=== PATIENT | male | born 1960 | race Hispanic/Latino ===

== ENCOUNTER 2020-02-25 17:40 | Emergency (ER) | payer BC, SELFPAY ==
--- OUTSIDE RECORDS SUMMARY | 2020-02-25 17:42 | XMS REPORT | Continuity of Care Document ---
:1960 Author Organization [facility] t Address [address] [place] [address] Dr. Westbrook [address] [place] [id number] Care Team Providers Name Role Phone Unavailable Unavailable Unavailable Problems This patient has no known problems. Allergies, Adverse Reactions, Alerts This patient has no known allergies or adverse reactions. Medications This patient has no known medications. Procedures This patient has no known procedures. Results This patient has no known results.
--- NOTE | 2020-02-25 18:13 | EDPHYS ---
Physician Documentation [facility] Name: Westley Ma Age: 60 yrs Sex: Male : 1960 Arrival Date: 02/25/2020 Time: 17:42 Bed 5 Private MD: ED Physician Juan A Jara HPI: 02/24 18:06 This 60 yrs old Male presents to ER via Ambulatory with complaints of Neck rn Swelling. 18:06 The patient or guardian complains of swelling. The symptoms are located on the left rn anterior neck. Onset: The symptoms/episode began/occurred yesterday. Context:. The pain does not radiate. Modifying factors: The symptoms are alleviated by nothing. the symptoms are aggravated by nothing. Severity of symptoms: At their worst the symptoms were mild, in the emergency department the symptoms are unchanged. The patient has not experienced similar symptoms in the past. The patient has been recently seen by a physician:. Reports seen yesterday by dentist for tooth problem and left facial swelling, given clindamycin, reports swelling extending to neck now. No difficulty swallowing, minimal discomfort, no fever. . Historical: - Allergies: 17:51 Codeine; sv - PMHx: 17:51 Diabetes - NIDDM; High Cholesterol; Hypertension; sv - PSHx: 17:51 left ankle; sv - Immunization history:: Flu vaccine is up to date. - Social history:: Smoking status: Patient denies any tobacco usage or history of. - Family history:: not pertinent. - Hospitalizations: : No recent hospitalization is reported. ROS: 18:06 Constitutional: Negative for fever, chills, and weight loss, Eyes: Negative for injury, rn pain, redness, and discharge, ENT: Negative for injury, pain, and discharge, Neck: + jaw and neck swelling Cardiovascular: Negative for chest pain, palpitations, and edema, Respiratory: Negative for shortness of breath, cough, wheezing, and pleuritic chest pain, Abdomen/GI: Negative for abdominal pain, nausea, vomiting, diarrhea, and constipation, MS/Extremity: Negative for injury and deformity, Skin: Negative for injury, rash, and discoloration, Neuro: Negative for headache, weakness, numbness, tingling, and seizure. Exam: 18:06 Constitutional: This is a well developed, well nourished patient who is awake, alert, rn and in no acute distress. ENT: No stridor Neck: Trachea midline, + mild superficial induration along left jawline and submandibular area, no fluctuance, + thickening is mobile, no open wounds or drainage. No crepitus. + bilateral cervical LAD. Vital Signs: 17:49 BP 168 / 82; Pulse 98; Resp 16; Temp 97.7; Pulse Ox 98% ; Weight 115.21 kg; Height 6 sv ft. 0 in. (182.88 cm); 18:38 BP 153 / 74; Pulse 88; Resp 17; Pulse Ox 100% on R/A; tw2 17:49 Body Mass Index 34.45 (115.21 kg, 182.88 cm) sv MDM: 17:54 Patient medically screened. rn 18:06 Differential diagnosis: dental abscess, facial cellulitis, submandibular cellulitis. rn Data reviewed: vital signs, nurses notes, and as a result, I will discharge patient. Counseling: I had a detailed discussion with the patient and/or guardian regarding: the historical points, exam findings, and any diagnostic results supporting the discharge/admit diagnosis, the need for outpatient follow up, to return to the emergency department if symptoms worsen or persist or if there are any questions or concerns that arise at home. Special discussion: I discussed with the patient/guardian in detail that at this point there is no indication for admission to the hospital. It is understood, however, that if the symptoms persist or worsen the patient needs to return immediately for re-evaluation. Based on the history and exam findings, there is no indication for further emergent testing or inpatient evaluation. I discussed with the patient/guardian the need to see a dentist for further evaluation of the symptoms. ED course: No evidence of submandibular or facial abscess at this point, stable, has only been on clindamycin 1 day, given IM steroids here for swelling, will add PO bactrim, and given return precautions. Has f/u with dentist on Thursday, explained exactly what to look for and when to seek emergent medical care. . Administered Medications: 18:21 Drug: Decadron 10 mg Route: IM; Site: right deltoid; tw2 18:42 Follow up: Response: No adverse reaction tw2 18:21 Drug: Bactrim (160 mg-800 mg (DS) 1 tablet Route: PO; tw2 18:42 Follow up: Response: No adverse reaction tw2 Disposition: 02/25/20 18:12 Discharged to Home. Impression: Cellulitis of face, Cellulitis of neck. - Condition is Stable. - Discharge Instructions: Cellulitis, Adult, Dental Abscess. - Prescriptions for Bactrim DS 800- 160 mg Oral Tablet - take 1 tablet by ORAL route every 12 hours for 10 days; 20 tablet. - Medication Reconciliation Form, Thank You Letter, Antibiotic Education, Prescription Opioid Use form. - Follow up: Private Physician; When: As needed; Reason: Recheck today's complaints, Re-evaluation by your physician. - Problem is new. - Symptoms are unchanged. Signatures: Maryanne Loza RN RN sv Nieto, Roman, MD MD rn Wise, Tara, RN RN tw2 Corrections: (The following items were deleted from the chart) 18:09 18:06 Constitutional: This is a well developed, well nourished patient who is awake, rn alert, and in no acute distress. Neck: Trachea midline, + mild superficial induration along left jawline and submandibular area, no fluctuance, + thickening is mobile, no open wounds or drainage. No crepitus. + bilateral cervical LAD. rn 18:43 18:12 02/25/2020 18:12 Discharged to Home. Impression: Cellulitis of face; Cellulitis tw2 of neck. Condition is Stable. Forms are Medication Reconciliation Form, Thank You Letter, Antibiotic Education, Prescription Opioid Use. Follow up: Private Physician; When: As needed; Reason: Recheck today's complaints, Re-evaluation by your physician. Problem is new. Symptoms are unchanged. rn
--- NOTE | 2020-02-25 18:13 | ER ---
Nurse's Notes [facility] Name: Westley Ma Age: 60 yrs Sex: Male : 1960 Arrival Date: 02/25/2020 Time: 17:42 Bed 5 Private MD: Diagnosis: Cellulitis of face;Cellulitis of neck Presentation: 02/24 17:49 Chief complaint: Patient states: went to the dentist yesterday and has a bad molar on sv the left side, dentist prescribed abx and pain meds. Pt reports swelling started on the left side and now has gone under his neck. Denies dyspnea or SOB. Coronavirus screen: Client denies travel out of the [place] in the last 14 days. At this time, the client does not indicate any symptoms associated with coronavirus-19. Ebola Screen: No symptoms or risks identified at this time. Initial Sepsis Screen: Does the patient meet any 2 criteria? HR > 90 bpm. No. Patient's initial sepsis screen is negative. Does the patient have a suspected source of infection? No. Patient's initial sepsis screen is negative. Risk Assessment: Do you want to hurt yourself or someone else? Patient reports no desire to harm self or others. Onset of symptoms was February 24, 2020. 17:49 Method Of Arrival: Ambulatory sv 17:49 Acuity: [id number] 3 sv Historical: - Allergies: 17:51 Codeine; sv - PMHx: 17:51 Diabetes - NIDDM; High Cholesterol; Hypertension; sv - PSHx: 17:51 left ankle; sv - Immunization history:: Flu vaccine is up to date. - Social history:: Smoking status: Patient denies any tobacco usage or history of. - Family history:: not pertinent. - Hospitalizations: : No recent hospitalization is reported. Screenin:04 Abuse screen: Denies threats or abuse. Nutritional screening: No deficits noted. tw2 Tuberculosis screening: No symptoms or risk factors identified. Fall Risk None identified. Assessment: 18:30 General: Appears in no apparent distress. comfortable, Behavior is calm, cooperative, ph appropriate for age. Pain: Complains of pain in left jaw. Neuro: Level of Consciousness is awake, alert, obeys commands, Oriented to person, place, time, situation. Cardiovascular: Capillary refill < 3 seconds in bilateral fingers Patient's skin is warm and dry. Respiratory: Airway is patent Respiratory effort is even, unlabored. GI: No signs and/or symptoms were reported involving the gastrointestinal system. Derm: Skin is intact, is healthy with good turgor, Skin is pink, warm \T\ dry. 18:38 Reassessment: Patient appears in no apparent distress at this time. No changes from tw2 previously documented assessment. Patient and/or family updated on plan of care and expected duration. Pain level reassessed. Patient is alert, oriented x 3, equal unlabored respirations, skin warm/dry/pink. Vital Signs: 17:49 BP 168 / 82; Pulse 98; Resp 16; Temp 97.7; Pulse Ox 98% ; Weight 115.21 kg; Height 6 sv ft. 0 in. (182.88 cm); 18:38 BP 153 / 74; Pulse 88; Resp 17; Pulse Ox 100% on R/A; tw2 17:49 Body Mass Index 34.45 (115.21 kg, 182.88 cm) sv ED Course: 17:42 Patient arrived in ED. rg4 17:43 Bed in low position. Call light in reach. Pulse ox on. NIBP on. tw2 17:48 Janelle Marcum RN is Primary Nurse. ph 17:50 Triage completed. sv 17:51 Arm band placed on. sv 17:54 Juan A Jara MD is Attending Physician. rn 18:31 No provider procedures requiring assistance completed. Patient did not have IV access ph during this emergency room visit. Administered Medications: 18:21 Drug: Decadron 10 mg Route: IM; Site: right deltoid; tw2 18:42 Follow up: Response: No adverse reaction tw2 18:21 Drug: Bactrim (160 mg-800 mg (DS) 1 tablet Route: PO; tw2 18:42 Follow up: Response: No adverse reaction tw2 Outcome: 18:12 Discharge ordered by . rn 18:42 Discharged to home ambulatory, with significant other. tw2 18:42 Condition: stable 18:42 Discharge instructions given to patient, significant other, Instructed on discharge instructions, follow up and referral plans. medication usage, Demonstrated understanding of instructions, follow-up care, medications, Prescriptions given X 1. 18:43 Patient left the ED. tw2 Signatures: Maryanne Loza RN RN Juan A Jara MD MD rn Hall Janelle, RN RN ph Nagi, YOSEF Freeman RN tw2 Luma Arshad [facility]
[2020-02-25] MEDS ORDERED: SMZ./TMP. 800/160 MG TABLET ONE (18:31)
[2020-02-25] MEDS ORDERED: dexAMETHasone 10 MG/ML VIAL ONE (18:32)
[2020-02-28 01:43] VITALS: TEMP 97.7
[2020-02-28 01:44] VITALS: BP 153/74; O2SAT 100
== END 2020-02-25 18:43 | disposition home or self-care (01) ==
LOC: ER 17:40
DX: L03.221 Cellulitis of neck (principal); L03.211 Cellulitis of face; I10 Essential (primary) hypertension; Z88.5 Allergy status to narcotic agent
CPT/HCPCS: 96372; 99283; J1100

== ENCOUNTER 2020-05-12 13:57 | Inpatient (IN) | payer SELFPAY ==
--- OUTSIDE RECORDS SUMMARY | 2020-05-12 13:59 | XMS REPORT | Continuity of Care Document ---
:1960 [address] [facility] t Address [address] [place] [address] Dr. Westbrook [address] [place] [id number] Care Team Providers Name Role Phone Unavailable Unavailable Unavailable Problems This patient has no known problems. Allergies, Adverse Reactions, Alerts This patient has no known allergies or adverse reactions. Medications This patient has no known medications. Procedures This patient has no known procedures. Results This patient has no known results.
--- NOTE | 2020-05-12 15:16 | RAD REPORT ---
EXAM DESCRIPTION: RAD - Foot Left 3 View - 05/12/2020 2:53 pm CLINICAL HISTORY: PAIN, wound left first toe, diabetes COMPARISON: No comparisons FINDINGS: No fracture, dislocation or periosteal reaction. No acute or destructive bony process. Sp ecifically, no bone destruction or acute findings to the bones of the first toe. Arterial tree calcif ications present. No air or foreign body in the soft tissues. Soft tissues around the first thumb do appear be edematou s. IMPRESSION: Soft tissue swelling left first toe. No acute or destructive bone process. No air or foreign body in the soft tissues.
[2020-05-12 15:31] LABS: Absolute Lymphocytes (CBC) 1.4 K/uL (0.7-4.9); Basophils % 0.5 % (0-1.3); Hematocrit 39.2 % (39.6-49.0); Lymphocytes % 11.1 % (15.3-44.8); MPV 9.6 fL (7.6-11.3); RBC Red Blood Cell Count 4.15 M/uL (4.33-5.43)
[2020-05-12 15:34] LABS: Albumin 3.5 g/dL (3.4-5.0); Bilirubin Total 0.4 mg/dL (0.2-1.0); Potassium 4.2 mmol/L (3.5-5.1); Protein, Total 8.3 g/dL (6.4-8.2)
[2020-05-12] MEDS ORDERED: NA CHLORIDE 0.9% 1,000 ML ONE (16:25)
[2020-05-12] MEDS ORDERED: PIPER/TAZO/NS 3.375gm 3.375 GM/100 ML BAG ONE (16:25)
--- NOTE | 2020-05-12 16:42 | EDPHYS ---
Physician Documentation [facility] Name: Westley Ma Age: 60 yrs Sex: Male : 1960 Arrival Date: 05/12/2020 Time: 14:03 Bed 13 Private MD: KENNEDY Physician Miguelito Zhao HPI: 05/12 15:18 This 60 yrs old Male presents to ER via Ambulatory with complaints of Toe pain.pm1 15:18 The patient presents with an injury, pain. The complaints affect the left foot, left pm1 first toe. Context: The problem was sustained outdoors, resulted from possibly pressure from working on his knees with his great toe on the ground. The medial aspect of his left great toe split open and has not improved. Skin turned whitish yesterday and split open in another area. No discharge present from wound, the patient can fully bear weight, the patient is able to ambulate. Onset: The symptoms/episode began/occurred 2 week(s) ago. Modifying factors: The symptoms are alleviated by elevation of extremity, the symptoms are aggravated by weight bearing. Associated signs and symptoms: The patient has no apparent associated signs or symptoms, Pertinent negatives: calf tenderness, fever, numbness, swelling. Severity of symptoms: in the emergency department the symptoms are actually worse. The patient has not experienced similar symptoms in the past. The patient has not recently seen a physician, the patient's primary care provider is Dr. Chatterjee. Historical: - Allergies: 14:17 Codeine; iw - Home Meds: 14:17 Altace Oral [Active]; metformin Oral [Active]; Toujeo SoloStar 300 unit/mL (1.5 mL) iw subcutaneous inpn [Active]; - PMHx: 14:17 Diabetes - NIDDM; High Cholesterol; Hypertension; iw - PSHx: 14:17 left ankle; iw - Immunization history:: Pneumococcal vaccine is up to date, Flu vaccine is up to date. - Social history:: Smoking status: Patient denies any tobacco usage or history of. ROS: 15:18 MS/extremity: Positive for pain, of the left first toe, Negative for decreased range of pm1 motion, deformity. 15:18 Constitutional: Negative for fever, chills, and weight loss, Cardiovascular: Negative for chest pain, palpitations, and edema, Respiratory: Negative for shortness of breath, cough, wheezing, and pleuritic chest pain, Abdomen/GI: Negative for abdominal pain, nausea, vomiting, diarrhea, and constipation, Back: Negative for injury and pain. 15:18 Neuro: Negative for headache, weakness, numbness, tingling, and seizure. 15:18 Skin: Positive for ulceration, of the left first toe, Negative for drainage or discharge. Exam: 15:18 Constitutional: This is a well developed, well nourished patient who is awake, alert, pm1 and in no acute distress. Head/Face: Normocephalic, atraumatic. 15:18 Back: No spinal tenderness. No costovertebral tenderness. Full range of motion. 15:18 Cardiovascular: Exam negative for acute changes, Rate: normal, Rhythm: regular, Pulses: no pulse deficits are appreciated. 15:18 Respiratory: Exam negative for acute changes, respiratory distress, shortness of breath. 15:18 Musculoskeletal/extremity: Extremities: grossly normal except: noted in the left first toe: erythema, swelling, tenderness. 15:18 Skin: cellulitis, well demarcated, on the left first toe. 15:18 Neuro: Exam negative for acute changes, Orientation: is normal, Mentation: is normal, Motor: is normal, moves all fours. Vital Signs: 14:14 BP 175 / 85; Pulse 88; Resp 16; Temp 98.9; Pulse Ox 100% on R/A; Weight 113.4 kg; iw Height 6 ft. 0 in. (182.88 cm); 16:00 BP 170 / 82; Pulse 88; Resp 16; Pulse Ox 98% on R/A; zb 19:00 BP 162 / 77; Pulse 87; Resp 15; Pulse Ox 100% on R/A; zb 22:22 BP 158 / 78; Pulse 82; Resp 16; Pulse Ox 98% on R/A; zb 14:14 Body Mass Index 33.91 (113.40 kg, 182.88 cm) iw MDM: 14:26 Patient medically screened. pm1 16:01 Counseling: I had a detailed discussion with the patient and/or guardian regarding: the pm1 historical points, exam findings, and any diagnostic results supporting the discharge/admit diagnosis, lab results, radiology results, the need for further work-up and treatment in the hospital. 16:14 Data reviewed: vital signs. Data interpreted: Pulse oximetry: on room air is 100 %. pm1 Interpretation: normal. 16:40 Physician consultation: Jose Burk DO was called at 16:40, was contacted at 16:40, pm1 regarding admission, patient's condition, would like medications started, stop zosyn and will start cefepime, in the emergency department to see patient at 16:40. 05/12 14:26 Order name: CBC with Diff; Complete Time: 15:53 pm1 05/12 14:26 Order name: CMP; Complete Time: 15:53 pm1 05/12 14:26 Order name: Procalcitonin; Complete Time: 15:53 pm1 05/12 14:26 Order name: Lactate; Complete Time: 15:53 pm1 05/12 15:54 Order name: Blood Culture Adult (2) pm1 05/12 15:55 Order name: COVID-19 : Document "Date of Symptom Onset" if Symptomatic. pm1 05/12 14:26 Order name: Foot Left 3 View XRAY; Complete Time: 15:18 pm1 05/12 14:26 Order name: IV Saline Lock; Complete Time: 14:44 pm1 05/12 21:18 Order name: SARS-COV-2 RT PCR; Complete Time: 12:35 EDMS Administered Medications: Discontinued: Zosyn 3.375 grams IVPB once over 60 mins; (mix in NS 100 mL) 16:15 Drug: NS 0.9% 1000 ml Route: IV; Rate: 1000 ml; Site: right forearm; zb 17:15 Follow up: Response: No adverse reaction; IV Status: Completed infusion; IV Intake: zb 1000ml 16:17 Drug: Zosyn 3.375 grams Route: IVPB; Infused Over: 60 mins; Site: right antecubital; zb 17:46 Drug: vancoMYCIN 1 grams Route: IVPB; Infused Over: 2 hrs; Site: right forearm; zb 20:45 Follow up: Response: No adverse reaction; IV Status: Completed infusion; IV Intake: zb 250ml Disposition: 05/13 09:05 Co-signature as Attending Physician, Miguelito Zhao MD I agree with the assessment and michael plan of care. Disposition: 05/12/20 16:41 Hospitalization ordered by Jose Burk for Inpatient Admission. Preliminary diagnosis is Cellulitis of left toe - left great toe and left foot. - Bed requested for Telemetry/MedSurg (Inpatient). - Status is Inpatient Admission. zb - Condition is Stable. - Problem is new. - Symptoms have improved. Signatures: Dispatcher [employer] EDMiguelito Acevedo MD MD cha Williams, Irene, RN RN iw Ayde Arshad RN RN cg Connor Greene, SNOW TECHNICIAN SNOW TECHNICIAN pm1 Nicolette Figueredo RN RN zb Corrections: (The following items were deleted from the chart) 03 22:04 16:41 Hospitalization Ordered by Jose Burk DO for Inpatient Admission. Preliminary cg diagnosis is Cellulitis of left toe - left great toe and left foot. Bed requested for Telemetry/MedSurg (Inpatient). Status is Inpatient Admission. Condition is Stable. Problem is new. Symptoms have improved. pm1 23:55 22:04 05/12/2020 16:41 Hospitalization Ordered by Jose Burk DO for Inpatient zb Admission. Preliminary diagnosis is Cellulitis of left toe - left great toe and left foot. Bed requested for Telemetry/MedSurg (Inpatient). Status is Inpatient Admission. Condition is Stable. Problem is new. Symptoms have improved. cg
--- NOTE | 2020-05-12 16:42 | ER ---
Nurse's Notes [facility] Name: Westley Ma Age: 60 yrs Sex: Male : 1960 Arrival Date: 05/12/2020 Time: 14:03 Bed 13 Private MD: Diagnosis: Cellulitis of left toe-left great toe and left foot Presentation: 05/12 14:14 Chief complaint: Patient states: has had skin on left great toe and the skin split open iw two weeks ago, yesterday the skin got real white and soft , is diabetic. Coronavirus screen: At this time, the client does not indicate any symptoms associated with coronavirus-19. Ebola Screen: Patient negative for fever greater than or equal to 101.5 degrees Fahrenheit, and additional compatible Ebola Virus Disease symptoms Patient denies exposure to infectious person. Patient denies travel to an Ebola-affected area in the 21 days before illness onset. No symptoms or risks identified at this time. Initial Sepsis Screen: Does the patient meet any 2 criteria? No. Patient's initial sepsis screen is negative. Does the patient have a suspected source of infection? No. Patient's initial sepsis screen is negative. Risk Assessment: Do you want to hurt yourself or someone else? Patient reports no desire to harm self or others. Onset of symptoms was April 28, 2020. 14:14 Method Of Arrival: Ambulatory iw 14:14 Acuity: [id number] 3 iw Historical: - Allergies: 14:17 Codeine; iw - Home Meds: 14:17 Altace Oral [Active]; metformin Oral [Active]; Toujeo SoloStar 300 unit/mL (1.5 mL) iw subcutaneous inpn [Active]; - PMHx: 14:17 Diabetes - NIDDM; High Cholesterol; Hypertension; iw - PSHx: 14:17 left ankle; iw - Immunization history:: Pneumococcal vaccine is up to date, Flu vaccine is up to date. - Social history:: Smoking status: Patient denies any tobacco usage or history of. Screenin:10 Abuse screen: Denies threats or abuse. Denies injuries from another. Nutritional zb screening: No deficits noted. Tuberculosis screening: No symptoms or risk factors identified. Fall Risk None identified. Assessment: 15:00 General: Appears in no apparent distress. comfortable, Behavior is calm, cooperative, zb appropriate for age. Pain: Complains of pain in ball of left foot Pain does not radiate. Pain currently is 2 out of 10 on a pain scale. Quality of pain is described as aching, Pain began years ago. couple of weeks. Is intermittent. Neuro: Level of Consciousness is awake, alert, obeys commands, Oriented to person, place, time, situation, Denies numbness. Cardiovascular: Heart tones S1 S2 present Capillary refill < 3 seconds Patient's skin is warm and dry. Respiratory: Airway is patent Respiratory effort is even, unlabored, Respiratory pattern is regular, symmetrical. GI: Abdomen is round. : No signs and/or symptoms were reported regarding the genitourinary system. EENT: No signs and/or symptoms were reported regarding the EENT system. Derm: Wound noted plantar aspect of left first toe Wound is purplish, eschar wound, no drainage present at this time. Reports peeling, since couple weeks . . Musculoskeletal: Range of motion: intact in all extremities. 16:00 Reassessment: Patient appears in no apparent distress at this time. Patient and/or zb family updated on plan of care and expected duration. Pain level reassessed. Patient is alert, oriented x 3, equal unlabored respirations, skin warm/dry/pink. 17:00 Reassessment: Patient appears in no apparent distress at this time. Patient and/or zb family updated on plan of care and expected duration. Pain level reassessed. Patient is alert, oriented x 3, equal unlabored respirations, skin warm/dry/pink. 18:00 Reassessment: Patient appears in no apparent distress at this time. Patient and/or zb family updated on plan of care and expected duration. Pain level reassessed. Patient is alert, oriented x 3, equal unlabored respirations, skin warm/dry/pink. 19:00 Reassessment: Patient appears in no apparent distress at this time. Patient and/or zb family updated on plan of care and expected duration. Pain level reassessed. Patient is alert, oriented x 3, equal unlabored respirations, skin warm/dry/pink. 20:00 Reassessment: Patient appears in no apparent distress at this time. Patient and/or zb family updated on plan of care and expected duration. Pain level reassessed. Patient is alert, oriented x 3, equal unlabored respirations, skin warm/dry/pink. 21:00 Reassessment: Patient appears in no apparent distress at this time. Patient and/or zb family updated on plan of care and expected duration. Pain level reassessed. Patient is alert, oriented x 3, equal unlabored respirations, skin warm/dry/pink. 22:00 Reassessment: Patient appears in no apparent distress at this time. Patient and/or zb family updated on plan of care and expected duration. Pain level reassessed. Patient is alert, oriented x 3, equal unlabored respirations, skin warm/dry/pink. report called and given at this time. 23:00 Reassessment: Patient appears in no apparent distress at this time. Patient and/or zb family updated on plan of care and expected duration. Pain level reassessed. Patient is alert, oriented x 3, equal unlabored respirations, skin warm/dry/pink. Vital Signs: 14:14 BP 175 / 85; Pulse 88; Resp 16; Temp 98.9; Pulse Ox 100% on R/A; Weight 113.4 kg; iw Height 6 ft. 0 in. (182.88 cm); 16:00 BP 170 / 82; Pulse 88; Resp 16; Pulse Ox 98% on R/A; zb 19:00 BP 162 / 77; Pulse 87; Resp 15; Pulse Ox 100% on R/A; zb 22:22 BP 158 / 78; Pulse 82; Resp 16; Pulse Ox 98% on R/A; zb 14:14 Body Mass Index 33.91 (113.40 kg, 182.88 cm) iw ED Course: 14:03 Patient arrived in ED. am2 14:16 Triage completed. iw 14:17 Arm band placed on. iw 14:22 Connor Greene NP is PHCP. pm1 14:22 Miguelito Zhao MD is Attending Physician. pm1 14:45 Inserted saline lock: 20 gauge 24 gauge wrist, using aseptic technique. dh4 14:51 Foot Left 3 View XRAY In Process Unspecified. EDMS 15:00 Nicolette Figueredo RN is Primary Nurse. zb 15:11 Patient has correct armband on for positive identification. Pulse ox on. NIBP on. Door zb closed. Noise minimized. 16:41 Prezas, Jose, DO is Hospitalizing Provider. pm1 23:55 Patient admitted, IV remains in place. zb 05/13 00:05 No provider procedures requiring assistance completed. zb Administered Medications: Discontinued: Zosyn 3.375 grams IVPB once over 60 mins; (mix in NS 100 mL) 03 16:15 Drug: NS 0.9% 1000 ml Route: IV; Rate: 1000 ml; Site: right forearm; zb 17:15 Follow up: Response: No adverse reaction; IV Status: Completed infusion; IV Intake: zb 1000ml 16:17 Drug: Zosyn 3.375 grams Route: IVPB; Infused Over: 60 mins; Site: right antecubital; zb 17:46 Drug: vancoMYCIN 1 grams Route: IVPB; Infused Over: 2 hrs; Site: right forearm; zb 20:45 Follow up: Response: No adverse reaction; IV Status: Completed infusion; IV Intake: zb 250ml Intake: 17:15 IV: 1000ml; Total: 1000ml. zb 20:45 IV: 250ml; Total: 1250ml. zb Outcome: 16:41 Decision to Hospitalize by Provider. pm1 23:00 Admitted to Med/surg accompanied by tech, via wheelchair, room 210, with chart, Report zb called to 2nd floor nurse. 23:00 Condition: stable 23:00 Instructed on the need for admit. 23:55 Patient left the ED. zb Signatures: Dispatcher [employer] EDMS Mayi Colvin RN RN iw Marinas, Patrick, NP BUSINESS SYSTEMS DEVELOPER pm1 Jeana Euceda 2 Marc Gooden 4 Nicolette Figueredo RN RN zb Corrections: (The following items were deleted from the chart) 15:11 15:00 Neuro: Level of Consciousness is awake, alert, obeys commands, Oriented to zb person, place, time, situation, zb 15:11 15:00 Derm: Wound noted plantar aspect of left first toe Wound is purplish, eschar zb wound, no drainage present at this time. zb 05/13 00:07 0306 22:00 Reassessment: Patient appears in no apparent distress at this time. Patient zb and/or family updated on plan of care and expected duration. Pain level reassessed. Patient is alert, oriented x 3, equal unlabored respirations, skin warm/dry/pink. zb
--- NOTE | 2020-05-12 17:16 | P.HP ---
Certification for Inpatient Patient admitted to: Inpatient With expected LOS: >2 Midnights Patient will require the following post-hospital care: None Practitioner: I am a practitioner with admitting privileges, knowledge of patient current condition, hospital course, and medical plan of care. Services: Services provided to patient in accordance with Admission requirements found in Title 42 Section 412.3 of the Code of Federal Regulations Patient History Date of Service: 05/12/20 Primary Care Provider: Dr. Chatterjee Reason for admission: Left DM great toe ulcer/infection History of Present Illness: 60-year-old male with history of diabetes mellitus type 2 insulin dependent, hypertension. Patient presented with worsening left great toe pain, erythema, and infection. He reports that this occurred about 3 weeks ago when he was working on his car. He scratched his left toe. There was a laceration to the area. Ever since that time he has noted some erythema and inflammation. He tried to heal it with peroxide. The area got more irritated and inflamed. Over the last 2 days the area ruptured. There is now some necrotic area to the tip of the toe. Swelling, erythema noted he reports no significant pain. No fever, chills. No chest pain or shortness of breath. He came to the ER for further evaluation. In the ER patient was evaluated. White count 12.4, pro calcitonin negative. Sodium 138, potassium 4.2. BUN of 15, creatinine 1.24 with a GFR 60. Glucose 347. X-ray shows left toe soft tissue swelling. No bony abnormality noted. No fracture noted. Patient was given IV antibiotic therapy and admitted for further evaluation and treatment. When I saw the patient ER, patient admits taking insulin therapy and blood pressure medication. He reports his diabetes is not well controlled. Allergies codeine Allergy (Mild, Verified 04/15/17 18:28) Unknown Home medications list reviewed: Yes Home Medications: Glimepiride [Amaryl] 4 mg PO BID 04/15/17 Insulin Glargine,Hum.rec.anlog [Lantus Solostar] 70 unit SQ DAILY 04/15/17 Metformin HCl 1,000 mg PO BID 04/15/17 Ramipril [Altace] 10 mg PO DAILY 04/15/17 Amox/Clavulanate [Augmentin 500-125 mg Tab] 500 mg PO BID #8 tab 04/19/17 - Past Medical/Surgical History Diabetic: Yes -: HTN -: Diabetes mellitus type 2 insulin-dependent -: No significant abdominal surgeries Psychosocial/ Personal History: Patient is . 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 - Family History Family History: Reviewed- Non-Contributory - Social History Smoking Status: Never smoker Alcohol use: No CD- Drugs: No Caffeine use: Yes Place of Residence: Home Review of Systems General: As per HPI Eyes: Unremarkable ENT: Unremarkable Respiratory: Unremarkable Cardiovascular: Unremarkable Gastrointestinal: Unremarkable Genitourinary: Unremarkable Musculoskeletal: As per HPI Integumentary: As per HPI Neurological: Unremarkable Lymphatics: Unremarkable Physical Examination - Physical Exam General: Alert, In no apparent distress, Oriented x3, Cooperative HEENT: Atraumatic, Normocephalic, Mucous membr. moist/pink Neck: Supple Respiratory: Clear to auscultation bilaterally, Normal air movement Cardiovascular: Normal pulses, Regular rate/rhythm Gastrointestinal: Normal bowel sounds, Soft and benign, Non-distended, No ascites, No tenderness, No masses, No rebound, No guarding Musculoskeletal: Other (Laceration with necrotic tissue noted to the left great toe. No significant exudate noted. Erythema, swelling noted to the great toe. This extends to the metatarsal region.) Integumentary: Other (As above) Neurological: Normal speech, Normal strength at 5/5 x4 extr, Normal tone, Normal affect - Studies Laboratory Data (last 24 hrs) 05/12/20 14:43: Sodium 138, Potassium 4.2, BUN 15, Creatinine 1.24, Glucose 347 H, Total Bilirubin 0.4, AST 19, ALT 27, Alkaline Phosphatase 96 05/12/20 14:43: WBC 12.40 H, Hgb 13.5 L, Hct 39.2 L, Plt Count 250 Assessment and Plan - Plan Impression: Left great toe cellulitis with diabetic foot ulcer suspect osteomyelitis and PVD Diabetes mellitus type 2 insulin-dependent with hyperglycemia Hypertension Plan: Left great toe cellulitis with diabetic foot ulcer suspect osteomyelitis and PVD: Patient will be admitted for further evaluation and treatment. Will continue with IV antibiotic therapy-vancomycin and cefepime. Will provide IV fluids. If taking good oral intake will discontinue. Blood cultures obtained. Will order MRI to evaluate for possible osteomyelitis. Arterial Doppler ordered to evaluate for peripheral vascular disease. Will consult surgery to further evaluate. Suspect surgical intervention required to debride the area. If MRI positive patient will need long-term IV antibiotic therapy. If so patient will require PICC line and possible placement. Other options will need to be considered including outpatient antibiotic therapy, long-term acute facility placement, or skilled placement. If workup unremarkable patient will likely just require surgical intervention and oral antibiotic therapy. Will need to get diabetes better controlled. Will start insulin therapy. Check A1c. Will restart blood pressure medication. DVT prophylaxis in place. Will pro vide medication for pain. Continue monitor patient closely. Anticipate improvement over the next several days with possible discharge after that time. Diabetes mellitus type 2 insulin-dependent with hyperglycemia: Will check A1c. Accu-Cheks in place. Sliding scale also in place. Will start Lantus for better diabetic control. Will continue to monitor and adjust medication. Hypertension: Will start Altace. Will adjust accordingly. Discharge Plan: Home Plan to discharge in: Greater than 2 days - Advance Directives Does patient have a Living Will: No Does patient have a Durable POA for Healthcare: No - Code Status/Comfort Care Code Status Assessed: Yes (Patient is full code) Time Spent Managing Pts Care (In Minutes): 55
[2020-05-12] MEDS ORDERED: VANCOMYCIN 1 GM/VIAL ONE (17:57)
[2020-05-12] MEDS ORDERED: NA CHLORIDE 0.9% 100 ML ONE (17:57)
--- NOTE | 2020-05-12 23:48 | CON ---
Date of Consultation: 05/12/2020 Diagnosis: Infected diabetic foot with cellulitis and gangrenous changes of the first toe. History Of Present Illness: This is a case of a 60-year-old patient noted 3 weeks ago to have a trau ma to the left first toe. He has not looked for any medical attention. Today, he came after seen th at the area became black, although dry, no drainage and some of the blisters opened already. He tommy es any trauma and he says he has some feeling in that region. He does not recall the incident itself . He remembered it was about 3 weeks ago. When the blisters open today, they were dry and but it sh ows underneath dry gangrene of the tip of that toe. Medications: Include metformin, Altace, Amaryl, insulin. Past Medical History: Diabetes, hypertension. Social History: He does not smoke. He does drink alcohol. Family History: Noncontributory. Review of Systems: See H and P. 10 points otherwise unremarkable. Physical Examination: General: The patient is awake, alert. HEENT: Pupils equal, reactive. Anicteric. Neck: Supple. Chest: Clear. Abdomen: Soft and depressible. Extremities: Diminished peripheral pulses, dorsalis pedis bilaterally. On the left first toe, patie nt has cellulitis of the distal foot and also toe with some dry gangrene at the tip of that toe. Jerzy e blisters already open. No purulent discharge. No fluctuance is present. Assessment: Left foot infected diabetic toe with some gangrenous changes. The patient was admitted for IV antibiotics. We are going to do a test to check the MRI. We will like to also have the test for the circulation if possible when available. This will let him understand the chance of healing f rom either debridement or amputation. We will follow the patient with you and give more recommendati ons as the case develops. HM/MODL Voice ID: [id number] Report ID: [id number]
[2020-05-12] MEDS ORDERED: GLUCAGON 1 MG/VIAL IM PRN (23:56)
[2020-05-12] MEDS ORDERED: NA CHLORIDE 0.9% 1,000 ML IV SCH (23:56)
[2020-05-12] MEDS ORDERED: HYDROCODONE/APAP 7.5/325 MG TAB PO PRN (23:56)
[2020-05-12] MEDS ORDERED: TRAMADOL HCL 50 MG TAB PO PRN (23:56)
[2020-05-12] MEDS ORDERED: D50W 25 GM/50 ML SYRINGE IV PRN (23:56)
[2020-05-12] MEDS ORDERED: ONDANSETRON 4 MG/2 ML VIAL IV PRN (23:56)
[2020-05-12] MEDS ORDERED: CEFEPIME 1 GM/VIAL IV SCH (23:56)
[2020-05-12] MEDS ORDERED: ACETAMINOPHEN 500 MG TAB PO PRN (23:56)
[2020-05-13 00:14] VITALS: BMI 4729.6
[2020-05-13] MEDS: INSULIN GLARGINE 100 UNITS/ML SQ SCH ×3 (00:36→22:02)
[2020-05-13] MEDS: INSULIN -REGULAR HUMAN 50 UNIT/0.5 ML ML SQ SCH ×5 (00:37→22:00)
[2020-05-13] MEDS ORDERED: CEFEPIME/SWI 1gm 10 ML ONE (00:54)
[2020-05-13] MEDS ORDERED: VANCOMYCIN/NS 1 gm 1 GM/250 ML BAG IVPB ONE (01:00)
[2020-05-13] MEDS: CEFEPIME/SWI 1gm 10 ML IV SCH ×2 (01:12→12:47)
[2020-05-13] MEDS ORDERED: VANCOMYCIN 1 GM/VIAL ONE (01:30)
[2020-05-13] MEDS ORDERED: NA CHLORIDE 0.9% 250 ML ONE (01:33)
[2020-05-13 06:26] LABS: Absolute Lymphocytes (CBC) 1.5 K/uL (0.7-4.9); Basophils % 0.7 % (0-1.3); Hematocrit 35.3 % (39.6-49.0); Lymphocytes % 18.5 % (15.3-44.8); MPV 9.2 fL (7.6-11.3); RBC Red Blood Cell Count 3.76 M/uL (4.33-5.43)
[2020-05-13 06:43] LABS: Magnesium 1.8 mg/dL (1.8-2.4); Potassium 3.8 mmol/L (3.5-5.1)
[2020-05-13 07:20] LABS: Thyroid Stimulating Hormone 13.2 uIU/mL (0.360-3.740)
[2020-05-13] MEDS: ENOXAPARIN 40 MG/0.4 ML SQ SCH (09:00)
[2020-05-13] MEDS ORDERED: VANCOMYCIN 1 GM in NA CHLORIDE 0.9% 500 ML IVPB SCH (09:00)
[2020-05-13] MEDS ORDERED: ramipriL 5 MG CAP PO SCH (09:00)
[2020-05-13] MEDS ORDERED: KCL 20 MEQ/100 mL IVPB 20 MEQ/100 ML BAG IV SCH (09:00)
[2020-05-13] MEDS: FOLIC ACID 1 MG TABLET PO SCH (09:05)
[2020-05-13] MEDS: THIAMINE HCL 100 MG TABLET PO SCH (09:09)
[2020-05-13] MEDS ORDERED: MAGNESIUM SULFATE 1 gm IVPB 1 GM/100 ML BAG IV ONE (09:43)
--- NOTE | 2020-05-13 09:46 | P.PN ---
Subjective Date of Service: 05/13/20 Primary Care Provider: Dr. Chatterjee Chief Complaint: Left DM great toe ulcer/infection Subjective: New changes, Doing well Physical Examination - Vital Signs Temperature: 97.3 F Blood Pressure: 143/68 Pulse: 81 Respirations: 16 Pulse Ox (%): 96 - Studies Laboratory Data (last 24 hrs) 05/12/20 14:43: Sodium 138, Potassium 4.2, BUN 15, Creatinine 1.24, Glucose 347 H, Total Bilirubin 0.4, AST 19, ALT 27, Alkaline Phosphatase 96 05/12/20 14:43: WBC 12.40 H, Hgb 13.5 L, Hct 39.2 L, Plt Count 250 Assessment & Plan Discharge Plan: Home Plan to discharge in: 48 Hours Physician Review Additional Text: Initial chief complaint: 60-year-old male with left great toe cellulitis Physical exam: Patient alert, cooperative no acute distress. Heart: Regular rate rhythm Lungs: Clear to auscultation Abdomen: Soft nontender nondistended Extremities: Swelling to the left toe improved. Necrotic area unchanged. No significant erythema noted at this time. Pain stable. Impression: Left great toe cellulitis with diabetic foot ulcer suspect osteomyelitis and PVD Diabetes mellitus type 2 insulin-dependent with hyperglycemia Hypertension Plan: Left great toe cellulitis with diabetic foot ulcer suspect osteomyelitis and PVD: Patient doing well at this time. Will Hep-Lock IV fluids if taking good oral intake. Continue IV antibiotic therapy-vancomycin and cefepime. Pharmacy to monitor and adjust medication. Will provide medication for pain. Awaiting MRI to evaluate for possible osteomyelitis. Also waiting on arterial Doppler to evaluate for PVD. Spoke with surgery today. No intervention at this time. Waiting on MRI. Possible intervention tomorrow. Will keep the patient NPO after midnight in the event patient needs debridement. If MRI positive patient will need long-term IV antibiotic therapy. If so patient will require PICC line and possible placement. Other options will need to be considered including outpatient antibiotic therapy, long-term acute facility placement, or skilled placement. If workup unremarkable patient will likely just require surgical intervention and oral antibiotic therapy. Continue diabetic medication. Anticipate possible DC as early as tomorrow if workup negative. I will turn the service over to the hospitalist team tomorrow. I will go plan of care with him. Diabetes mellitus type 2 insulin-dependent with hyperglycemia: Will check A1c. Accu-Cheks in place. Sliding scale also in place. Will start metformin. Continue Lantus. Patient takes insulin therapy at home. Continue to adjust medication for better control. Hypertension: Altace Adjusted. Continue monitor and adjust medication. Time Spent Managing Pts Care (In Minutes): 55
--- NOTE | 2020-05-13 10:49 | PN ---
Date of Progress Note: 05/13/2020 Diagnosis: Left foot cellulitis with necrotic diabetic infected ulcer of left first toe with gangren ous changes. Subjective: The patient is doing better. No complaint. No fever. Physical Examination: Chest: Clear. Abdomen: Soft and depressible. Extremities: Left toes, left foot and cellulitis improved. He still has some residual. The area of the first toe is delineating. No purulent discharge. No fluctuance. Diagnostic Data: MRI is still pending. Plan: To do an MRI and we will like to also have vascular studies. Right now, he has dry gangrene i n that area. It should be debrided if he does not have circulation, then we may have to d o more than that and that means an amputation of that area. In the meantime, we used the imaging brandie dies to delineate not only the area of cleaning or amputation, but also the chance of heal ing. We are going to keep him n.p.o. after midnight. ERIC/SHERRI Voice ID: [id number] Report ID: [id number]
[2020-05-13] MEDS ORDERED: VANCOMYCIN 2.75 GM in NA CHLORIDE 0.9% 500 ML IVPB ONE (12:00)
[2020-05-13] MEDS ORDERED: D50W 25 GM/50 ML VIAL IV PRN (12:00)
[2020-05-13] MEDS: METFORMIN HCL 500 MG TAB PO SCH (16:50)
[2020-05-13] MEDS ORDERED: VANCOMYCIN 2 GM in NA CHLORIDE 0.9% 500 ML IVPB SCH (19:30)
--- NOTE | 2020-05-13 21:20 | RAD REPORT ---
EXAM DESCRIPTION: US - Lower Extremity Arterial Bilat - 05/13/2020 9:06 pm CLINICAL HISTORY: evaluate for PVD Leg pain COMPARISON: No comparisons TECHNIQUE: Bilateral lower extremity arterial Doppler examination was performed with veda guido FINDINGS: Monophasic waveforms are noted below the level of the popliteal arteries bilaterally and in a symmetr ic fashion. The severity is slightly greater on the left relative to the right. No occlusion or near occlusion identified. IMPRESSION: Moderate infrapopliteal peripheral vascular disease is seen bilaterally.
[2020-05-14] MEDS ORDERED: VANCOMYCIN 2 GM in NA CHLORIDE 0.9% 500 ML IVPB ONE ×2
[2020-05-14] MEDS: CEFEPIME/SWI 1gm 10 ML IV SCH ×3 (00:01→23:55)
[2020-05-14 05:35] LABS: Basophils % 0.3 % (0-1.3); Hematocrit 35.5 % (39.6-49.0); Lymphocytes % 10.9 % (15.3-44.8); MPV 8.7 fL (7.6-11.3)
[2020-05-14 05:42] LABS: BUN Blood Urea Nitrogen 12 mg/dL (7-18); Bicarbonate 25 mmol/L (21-32); Glucose Level 111 mg/dL (74-106); Potassium 3.9 mmol/L (3.5-5.1); Sodium Level 143 mmol/L (136-145)
[2020-05-14] MEDS: INSULIN -REGULAR HUMAN 50 UNIT/0.5 ML ML SQ SCH ×4 (07:30→21:00)
[2020-05-14] MEDS: INSULIN GLARGINE 100 UNITS/ML SQ SCH ×2 (09:00→21:00)
--- NOTE | 2020-05-14 09:32 | RAD REPORT ---
EXAM DESCRIPTION: MRI - Foot Left Wo Cont - 05/14/2020 9:04 am CLINICAL HISTORY: evaluate for osteomyelitis to Left toe, soft tissue wound left first toe COMPARISON: Foot Left 3 View dated 05/12/2020 TECHNIQUE: Multiplanar imaging of the left foot performed using T1 weighted, T1 fat saturation, T2 f at saturation and T2 stir sequencing. FINDINGS: Due to the size the patient's pudding was difficult to obtain the first toe fully in all a cquisitions. T1 imaging shows normal hyperintense fatty marrow signal in the proximal and distal phalanges of the first toe. T2 weighted imaging shows increased signal. No cortical disruption identified. Remaining phalanges also without suspicious signal pattern. No metatarsal or colossal bone suspicious findings. There is an 11 millimeter subcortical degenerative cystic focus medial calcaneus near the sustentacular talus. Soft tissue swelling is present around the first toe without abscess or drainable fluid collection. N o other suspicious soft tissue finding. No skeletal muscle or tendon suspicious finding. Small to mod erate-sized plantar spur is present. IMPRESSION: T2 edema signal pattern is present in the first distal phalanx without T1 signal abnorma lity correlate. No cortical disruption. Current findings do not meet diagnostic MR criteria for osteomyelitis. Continued close follow-up can be performed and repeat MR imaging could be performed if the patient has continued or progressive cli nical findings.
[2020-05-14] MEDS ORDERED: NA CHLORIDE 0.9% 1,000 ML ONE (10:05)
[2020-05-14] MEDS ORDERED: FENTANYL CITR 100 MCG/2 ML ONE (10:42)
[2020-05-14] MEDS ORDERED: MIDAZOLAM HCL 2 MG/2 ML INJ ONE (10:42)
[2020-05-14] MEDS ORDERED: LIDOCAINE 1% MPF 5 ML VIAL ONE (10:42)
[2020-05-14] MEDS ORDERED: propofoL 200 MG/20 ML VIAL IV ONE (10:42)
--- NOTE | 2020-05-14 11:28 | P.BOP ---
Preoperative diagnosis: necrotic infected diabetic left first toe ulcer Postoperative diagnosis: same Primary procedure: Excisional debridement necrotic infected diabetic left 1st toe ulcer 4x4cm Estimated blood loss: <10cc Specimen: necrotic tissue Findings: necrotic infected diabetic left first toe ulcer Anesthesia: MAC Transferred to: Recovery Room Condition: Good
[2020-05-14] MEDS ORDERED: KETOROLAC 30 MG/ML INJ ONE (11:34)
[2020-05-14] MEDS ORDERED: ONDANSETRON 4 MG/2 ML VIAL ONE (11:42)
[2020-05-14] MEDS: VANCOMYCIN 2 GM in NA CHLORIDE 0.9% 500 ML IVPB SCH ×2 (12:00→23:20)
[2020-05-14] MEDS: THIAMINE HCL 100 MG TABLET PO SCH (12:31)
[2020-05-14] MEDS: METFORMIN HCL 500 MG TAB PO SCH ×2 (12:31→16:50)
[2020-05-14] MEDS: FOLIC ACID 1 MG TABLET PO SCH (12:32)
[2020-05-14] MEDS: ramipriL 5 MG CAP PO SCH (12:32)
[2020-05-14] MEDS: ENOXAPARIN 40 MG/0.4 ML SQ SCH (12:34)
--- NOTE | 2020-05-14 13:02 | OP ---
Date of Procedure: 05/14/2020 Surgeon: Saul Martin MD Preoperative Diagnosis: Necrotic infected diabetic left first toe ulcer. Postoperative Diagnosis: Necrotic infected diabetic left first toe ulcer. Procedure: Excisional debridement of necrotic infected diabetic left first toe ulcer about 4 x 4 cm. Estimated Blood Loss: Less than 10 mL. Specimen: Necrotic tissue. Anesthesia: MAC plus local. Findings: Necrotic tissue. No bone exposed. Indications: This is the case of a male, who developed a gangrene of the distal toe region. He does not remember exactly why that happened. He came to the hospital, admitted for IV antibiotics, and andrea ray asked us for a debridement of that area with benefits, alternatives, and risks including, but not limited to infection, bleeding, damage to adjacent structures, anesthesia complication, nonhealing w ound, [place], and even . He also understands this may not relieve any symptoms. He might need more than one surgical intervention. He also understands he may end out with amputation of the toe. He understands also the importance with the primary doctor a proper workup for this patient, which inclu de a proper shoe wear, control of his glucose and also avoiding trauma. Procedure In Detail: The patient was brought to the operating room, placed in supine position. Anes thesia was done without complication. A time-out was called. Left foot was prepped and draped in st erile fashion. Using an 11 blade, we proceeded to remove all the necrotic tissue present. Significa nt amount of the toe itself is about 4.5 x 4 cm area. Area was irrigated. Hemostasis was obtained a nd the area was covered with Santyl. The patient tolerated the procedure well. The patient was sent to recovery in stable condition. HM/MODL Voice ID: [id number] Report ID: [id number]
[2020-05-15 06:05] LABS: Absolute Lymphocytes (CBC) 1.3 K/uL (0.7-4.9); Basophils % 0.6 % (0-1.3); Hematocrit 35.8 % (39.6-49.0); MPV 8.8 fL (7.6-11.3)
[2020-05-15 06:15] LABS: BUN Blood Urea Nitrogen 14 mg/dL (7-18); Bicarbonate 26 mmol/L (21-32); Glucose Level 98 mg/dL (74-106); Magnesium 2.1 mg/dL (1.8-2.4); Potassium 4.3 mmol/L (3.5-5.1); Sodium Level 140 mmol/L (136-145)
[2020-05-15] MEDS: INSULIN -REGULAR HUMAN 50 UNIT/0.5 ML ML SQ SCH ×4 (07:30→21:00)
[2020-05-15] MEDS: INSULIN GLARGINE 100 UNITS/ML SQ SCH ×2 (09:00→21:00)
[2020-05-15] MEDS: ramipriL 5 MG CAP PO SCH (09:19)
[2020-05-15] MEDS: METFORMIN HCL 500 MG TAB PO SCH ×2 (09:19→17:00)
[2020-05-15] MEDS: FOLIC ACID 1 MG TABLET PO SCH (09:19)
[2020-05-15] MEDS: THIAMINE HCL 100 MG TABLET PO SCH (09:19)
[2020-05-15] MEDS: ENOXAPARIN 40 MG/0.4 ML SQ SCH (09:20)
[2020-05-15] MEDS: VANCOMYCIN 2 GM in NA CHLORIDE 0.9% 500 ML IVPB SCH ×2 (12:00→23:23)
[2020-05-15] MEDS: CEFEPIME/SWI 1gm 10 ML IV SCH ×2 (12:45→23:35)
--- NOTE | 2020-05-15 13:27 | PN ---
Date of Progress Note: 05/15/2020 Reason For Service: Left toe cellulitis, necrotic wound, status post debridement. Objective: The patient is doing better. Objective: Abdomen: Soft and depressible. Extremities: Good capillary refill. Intact surgical site. Plan: From the surgical standpoint, continue wound care. He may be able to discharge home, but he h as to follow up with the [facility] in a week from now. We are going to use Santyl, wet-to -dry to the toe area daily. We have to be careful with the shoes, not to put any pressure on it, and also control his glucose. We will see the patient next Thursday in [facility] whenever he is medically clear to be discharged. ERIC/SHERRI Voice ID: [id number] Report ID: [id number]
--- NOTE | 2020-05-15 15:38 | P.CNS ---
Date of Consult: 05/15/20 Primary Care Provider: Dr. Chatterjee Chief Complaint: Left DM great toe ulcer/infection History of Present Illness: Patient is a 60-year-old male with a past medical history of diabetes type 2 insulin dependent and hypertension who presented to the ED with worsening pain to his left great toe. Patient states that about 3 weeks ago he is working on his son's car when he had an injury to the left great toe. Patient says that over the 3 weeks time span theredness and inflammation has increased and due to the pain the patient finally came into the emergency department. In the ED the left great toe was necrotic with swelling and erythema. Infectious disease has been consulted to monitor the patient's antibiotics. Patient is currently on IV vancomycin and cefepime and tolerating the antibiotics well with no nausea, vomiting, diarrhea or abdominal pain. Will monitor renal function closely. Dr. Martin is taking care of the wound and will follow up with patient outpatient. He denied nausea, vomiting, diarrhea, shortness breath, chest pain. He does state he is having pain to his left great toe. Allergies codeine Allergy (Mild, Verified 04/15/17 18:28) Unknown Home Medications: Insulin Glargine,Hum.rec.anlog [Lantus Solostar] 70 unit SQ DAILY 04/15/17 Metformin HCl 1,000 mg PO BID 04/15/17 Ramipril [Altace] 10 mg PO DAILY 04/15/17 - Past Medical/Surgical History Diabetic: Yes -: HTN -: Diabetes mellitus type 2 insulin-dependent -: No significant abdominal surgeries Psychosocial/ Personal History: Patient is . 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 - Social History Alcohol use: No CD- Drugs: No Caffeine use: Yes Place of Residence: Home Review of Systems 10-point ROS is otherwise unremarkable Physical Examination Temp Pulse Resp BP Pulse Ox 97.9 F 74 16 158/77 H 98 05/15/20 12:00 05/15/20 12:00 05/15/20 12:00 05/15/20 12:00 05/15/20 12:00 General: Alert, In no apparent distress HEENT: Atraumatic, Normocephalic Neck: Supple, 2+ carotid pulse no bruit Respiratory: Clear to auscultation bilaterally, Normal air movement Cardiovascular: No edema, Normal pulses, Regular rate/rhythm Capillary refill: <2 Seconds Gastrointestinal: Normal bowel sounds, Soft and benign Musculoskeletal: No clubbing, No swelling Integumentary: Other (Necrotic ulcer to left great toe. Wound debridement was performed on 05/14. ) Laboratory Last Values WBC 12.40 K/uL (4.3-10.9) H 05/12/20 14:43 RBC 4.15 M/uL (4.33-5.43) L 05/12/20 14:43 Hgb 13.5 g/dL (13.6-17.9) L 05/12/20 14:43 Hct 39.2 % (39.6-49.0) L 05/12/20 14:43 MCV 94.4 fL (80-100) 05/12/20 14:43 MCH 32.5 pg (27.0-35.0) 05/12/20 14:43 MCHC 34.5 g/dL (32.0-36.0) 05/12/20 14:43 RDW 12.5 % (12.1-15.2) 05/12/20 14:43 Plt Count 250 K/uL (152-406) 05/12/20 14:43 MPV 9.6 fL (7.6-11.3) 05/12/20 14:43 Neutrophils % 80.3 % (41.7-73.7) H 05/12/20 14:43 Lymphocytes % 11.1 % (15.3-44.8) L 05/12/20 14:43 Monocytes % 6.8 % (3.3-12.3) 05/12/20 14:43 Eosinophils % 1.3 % (0-4.4) 05/12/20 14:43 Basophils % 0.5 % (0-1.3) 05/12/20 14:43 Absolute Neutrophils 9.9 K/uL (1.8-8.0) H 05/12/20 14:43 Absolute Lymphocytes 1.4 K/uL (0.7-4.9) 05/12/20 14:43 Absolute Monocytes 0.8 K/uL (0.1-1.3) 05/12/20 14:43 Absolute Eosinophils 0.2 K/uL (0-0.5) 05/12/20 14:43 Absolute Basophils 0.1 K/uL (0-0.5) 05/12/20 14:43 Sodium 138 mmol/L (136-145) 05/12/20 14:43 Potassium 4.2 mmol/L (3.5-5.1) 05/12/20 14:43 Chloride 105 mmol/L (98-107) 05/12/20 14:43 Carbon Dioxide 24 mmol/L (21-32) 05/12/20 14:43 BUN 15 mg/dL (7-18) 05/12/20 14:43 Creatinine 1.24 mg/dL (0.55-1.3) 05/12/20 14:43 Estimated GFR 60 mL/min (=/>90) L 05/12/20 14:43 Glucose 347 mg/dL (74-106) H 05/12/20 14:43 Lactic Acid 1.3 mmol/L (0.4-2.0) 05/12/20 14:43 Calcium 8.9 mg/dL (8.5-10.1) 05/12/20 14:43 Total Bilirubin 0.4 mg/dL (0.2-1.0) 05/12/20 14:43 AST 19 U/L (15-37) 05/12/20 14:43 ALT 27 U/L (12-78) 05/12/20 14:43 Alkaline Phosphatase 96 U/L (45-117) 05/12/20 14:43 Serum Total Protein 8.3 g/dL (6.4-8.2) H 05/12/20 14:43 Albumin 3.5 g/dL (3.4-5.0) 05/12/20 14:43 Globulin 4.8 g/dL (2.3-3.5) H 05/12/20 14:43 Albumin/Globulin Ratio 0.7 (1.1-1.8) L 05/12/20 14:43 Procalcitonin < 0.05 ng/mL (<0.050) 05/12/20 14:43 Conclusions/Impression: Assessment: 1. necrotic ulcer to left great toe with left foot cellulitis 2. Diabetes type 2 3. Anemia plan: 1. Continue IV antibiotics. Patient will need antibiotic course of 2 weeks. Change to p.o. antibiotics for discharge. Will follow up outpatient with Dr. Martin for his wound - Medical management per primary team -contained monitor CBC and BMP -continued monitor for signs of infection Plan of care discussed with Dr. Kumar Thank you for consultation Physician Review: Patient Assessed, Agree with Above Assessment and Plan
[2020-05-16] MEDS: INSULIN -REGULAR HUMAN 50 UNIT/0.5 ML ML SQ SCH (07:30)
[2020-05-16] MEDS ORDERED: COLLAGENASE 30 GM OINTMENT TOP SCH (09:00)
[2020-05-16] MEDS: METFORMIN HCL 500 MG TAB PO SCH (09:04)
[2020-05-16] MEDS: ENOXAPARIN 40 MG/0.4 ML SQ SCH (09:05)
[2020-05-16] MEDS: FOLIC ACID 1 MG TABLET PO SCH (09:05)
[2020-05-16] MEDS: ramipriL 5 MG CAP PO SCH (09:05)
[2020-05-16] MEDS: INSULIN GLARGINE 100 UNITS/ML SQ SCH (09:05)
[2020-05-16] MEDS: THIAMINE HCL 100 MG TABLET PO SCH (09:05)
--- NOTE | 2020-05-16 09:54 | P.PN ---
Subjective Date of Service: 05/14/20 Subjective: No new changes, No C/O voiced, Improving Awaiting MRI results. Surgical debridement today. May need IV antibiotic therapy pending MRI results. Review of Systems 10-point ROS is otherwise unremarkable Physical Examination - Vital Signs Temperature: 97.4 F Blood Pressure: 179/79 Pulse: 71 Respirations: 18 Pulse Ox (%): 96 - Physical Exam General: Alert, In no apparent distress, Oriented x3 Respiratory: Clear to auscultation bilaterally, Normal air movement Cardiovascular: Regular rate/rhythm, Normal S1 S2, No murmurs Gastrointestinal: Normal bowel sounds, Soft and benign, Non-distended, No tenderness Musculoskeletal: No clubbing, Swelling, Erythema, Tenderness Neurological: Normal strength at 5/5 x4 extr, Normal tone, Sensation intact, Cranial nerves 3-12 intact - Studies Medications List Reviewed: Yes Assessment & Plan - Problems (Diagnosis) (1) Diabetic foot ulcer Current Visit: Yes Status: Acute (2) Cellulitis Current Visit: Yes Status: Acute (3) Osteomyelitis Current Visit: Yes Status: Acute - Plan 1. Continue with IV antibiotic 2. Continue with local wound care 3. Wound care consultation/surgical consultation 4. Gentle IV hydration 5. Monitor CBC 6. Strict blood sugar monitoring 7. Pain control 8. GI and DVT prophylaxis Discharge Plan: Home Plan to discharge in: 48 Hours - Advance Directives Does patient have a Living Will: No Does patient have a Durable POA for Healthcare: No - Code Status/Comfort Care Code Status Assessed: Yes Code Status: Full Code Physician Review: Patient Assessed, Agree with Above Assessment and Plan Critical Care: No Time Spent Managing PTS Care (In Minutes): 45
--- NOTE | 2020-05-16 09:55 | P.PN ---
Date of Service: 05/15/20 Subjective Subjective: Patient doing well with no new complaints. Possible discharge home later today. Review of Systems 10-point ROS is otherwise unremarkable Physical Examination - Vital Signs Reviewed - Physical Exam General: Alert, In no apparent distress, Oriented x3 Respiratory: Clear to auscultation bilaterally, Normal air movement Cardiovascular: Regular rate/rhythm, Normal S1 S2, No murmurs Gastrointestinal: Normal bowel sounds, Soft and benign, Non-distended, No tenderness Musculoskeletal: No clubbing, Swelling, Erythema, Tenderness Neurological: Normal strength at 5/5 x4 extr, Normal tone, Sensation intact, Cranial nerves 3-12 intact - Studies Medications List Reviewed: Yes Assessment & Plan - Problems (Diagnosis) (1) Diabetic foot ulcer Current Visit: Yes Status: Acute (2) Cellulitis Current Visit: Yes Status: Acute (3) Osteomyelitis Current Visit: Yes Status: Acute - Plan 1. Continue with IV antibiotic 2. Continue with local wound care 3. Wound care consultation/surgical consultation 4. Gentle IV hydration 5. Monitor CBC 6. Strict blood sugar monitoring 7. Pain control 8. GI and DVT prophylaxis Discharge Plan: Home Plan to discharge in: 48 Hours - Advance Directives Does patient have a Living Will: No Does patient have a Durable POA for Healthcare: No - Code Status/Comfort Care Code Status Assessed: Yes Code Status: Full Code Physician Review: Patient Assessed, Agree with Above Assessment and Plan Critical Care: No Time Spent Managing PTS Care (In Minutes): 45
--- NOTE | 2020-05-16 10:02 | P.DS ---
Discharge Date: 05/16/20 Primary Care Provider: Dr. Chatterjee Disposition: ROUTINE DISCHARGE Discharge Condition: GOOD Reason for Admission: Left DM great toe ulcer/infection - Problems (1) Diabetic foot ulcer Status: Chronic (2) Cellulitis Status: Resolved (3) Osteomyelitis Status: Acute Brief History of Present Illness: Patient is a 60-year-old male with history of diabetes mellitus type 2 insulin dependent, hypertension. Patient presented with worsening left great toe pain, erythema, and infection. He reports that this occurred about 3 weeks ago when he was working on his car. He scratched his left toe. There was a laceration to the area. Ever since that time he has noted some erythema and inflammation. He tried to heal it with peroxide. The area got more irritated and inflamed. Over the last 2 days the area ruptured. There is now some necrotic area to the tip of the toe. Swelling, erythema noted he reports no significant pain. No fever, chills. No chest pain or shortness of breath. He came to the ER for further evaluation. In the ER patient was evaluated. White count 12.4, pro calcitonin negative. Sodium 138, potassium 4.2. BUN of 15, creatinine 1.24 with a GFR 60. Glucose 347. X-ray shows left toe soft tissue swelling. No bony abnormality noted. No fracture noted. Patient was given IV antibiotic therapy and admitted for further evaluation and treatment. When I saw the patient ER, patient admits taking insulin therapy and blood pressure medication. He reports his diabetes is not well controlled. Hospital Course: Patient was treated with IV antibiotics. Patient clinical symptoms are improving. Continue with outpatient IV antibiotic therapy for 6 weeks. Through the surgical center. At the time patient is stable for discharge home with outpatient follow up with [facility]. Continue with IV antibiotics for a total of 6 weeks. Vital Signs/Physical Exam: Temp Pulse Resp BP Pulse Ox 97.4 F 71 18 179/79 H 96 05/16/20 09:53 05/16/20 09:53 05/16/20 09:53 05/16/20 09:53 05/16/20 09:53 General: Alert, In no apparent distress, Oriented x3 Laboratory Data at Discharge: WBC 8.20 K/uL (4.3-10.9) D 05/15/20 05:24 Hgb 12.5 g/dL (13.6-17.9) L 05/15/20 05:24 Hct 35.8 % (39.6-49.0) L 05/15/20 05:24 Plt Count 275 K/uL (152-406) 05/15/20 05:24 Sodium 140 mmol/L (136-145) 05/15/20 05:24 Potassium 4.3 mmol/L (3.5-5.1) 05/15/20 05:24 BUN 14 mg/dL (7-18) 05/15/20 05:24 Creatinine 0.80 mg/dL (0.55-1.3) 05/15/20 05:24 Glucose 98 mg/dL (74-106) 05/15/20 05:24 Magnesium 2.1 mg/dL (1.8-2.4) 05/15/20 05:24 Total Bilirubin 0.4 mg/dL (0.2-1.0) 05/12/20 14:43 AST 19 U/L (15-37) 05/12/20 14:43 ALT 27 U/L (12-78) 05/12/20 14:43 Alkaline Phosphatase 96 U/L (45-117) 05/12/20 14:43 Triglycerides 62 mg/dL (<150) 05/13/20 05:39 Cholesterol 109 mg/dL (<200) 05/13/20 05:39 HDL Cholesterol 41 mg/dL (40-60) 05/13/20 05:39 Cholesterol/HDL Ratio 2.66 05/13/20 05:39 Home Medications: Metformin HCl 1,000 mg PO BID 04/15/17 Ramipril [Altace] 10 mg PO DAILY 04/15/17 Insulin Glargine,Hum.rec.anlog [Toukandaceo Solostar] 50 unit SQ AC 05/25/20 Physician Discharge Instructions: -OK TO DC IV AND DC HOME -FOLLOW-UP WITH PCP IN 1-2 WEEKS -FOLLOW-UP WITH Surgery IN 1-2 WEEKS -PLEASE MAKE SURE ALL DIAGNOSTIC STUDIES ARE AVAILABLE AND HAVE BEEN REVIEWED WITH PATIENT PRIOR TO DISCHARGE -RETURN TO THE ER IF symptoms worsen -CALL DR. MOTA AT [phone] IF ANY QUESTIONS REGARDING HOSPITAL STAY -PLEASE CALL THE FLOOR AT [phone] IF ANY MEDICATION OR NURSING QUESTIONS Diet: ADA Activity: Fall precautions Followup: Saul Martin MD [ACTIVE - CAN ADMIT] - OOT,OOT [Primary Care Provider] - Time spent managing pt's care (in minutes): 38
[2020-05-16 10:13] VITALS: O2SAT 98
--- NOTE | 2020-05-16 11:03 | P.PN ---
Subjective Date of Service: 05/16/20 Primary Care Provider: Dr. Chatterjee Chief Complaint: Left DM great toe ulcer/infection Patient seen and examined at bedside-no acute complaints. No active bleeding or drainage noted from left great toe. Sugars still elevated but are improving-hA1c ordered. Review of Systems 10-point ROS is otherwise unremarkable Physical Examination - Vital Signs Temperature: 97.4 F Blood Pressure: 179/79 Pulse: 71 Respirations: 18 Pulse Ox (%): 96 - Physical Exam Other Physical/Emotional Findings: General: Alert, In no apparent distress. HEENT: Atraumatic, Normocephalic. Neck: Supple, 2+ carotid pulse no bruit. Respiratory: Clear to auscultation bilaterally, Normal air movement. Cardiovascular: No edema, Normal pulses, Regular rate/rhythm. Capillary refill: <2 Seconds. Gastrointestinal: Normal bowel sounds, Soft and benign. Mu sculoskeletal: No clubbing, No swelling. Integumentary: Other (Necrotic ulcer to left great toe. Wound debridement was performed on 05/14. Area is cleana nd dry with no acute drainage. Plantar aspect of fat pad removed during debridement. ) - Studies Laboratory Last Values WBC 12.40 K/uL (4.3-10.9) H 05/12/20 14:43 RBC 4.15 M/uL (4.33-5.43) L 05/12/20 14:43 Hgb 13.5 g/dL (13.6-17.9) L 05/12/20 14:43 Hct 39.2 % (39.6-49.0) L 05/12/20 14:43 MCV 94.4 fL (80-100) 05/12/20 14:43 MCH 32.5 pg (27.0-35.0) 05/12/20 14:43 MCHC 34.5 g/dL (32.0-36.0) 05/12/20 14:43 RDW 12.5 % (12.1-15.2) 05/12/20 14:43 Plt Count 250 K/uL (152-406) 05/12/20 14:43 MPV 9.6 fL (7.6-11.3) 05/12/20 14:43 Neutrophils % 80.3 % (41.7-73.7) H 05/12/20 14:43 Lymphocytes % 11.1 % (15.3-44.8) L 05/12/20 14:43 Monocytes % 6.8 % (3.3-12.3) 05/12/20 14:43 Eosinophils % 1.3 % (0-4.4) 05/12/20 14:43 Basophils % 0.5 % (0-1.3) 05/12/20 14:43 Absolute Neutrophils 9.9 K/uL (1.8-8.0) H 05/12/20 14:43 Absolute Lymphocytes 1.4 K/uL (0.7-4.9) 05/12/20 14:43 Absolute Monocytes 0.8 K/uL (0.1-1.3) 05/12/20 14:43 Absolute Eosinophils 0.2 K/uL (0-0.5) 05/12/20 14:43 Absolute Basophils 0.1 K/uL (0-0.5) 05/12/20 14:43 Sodium 138 mmol/L (136-145) 05/12/20 14:43 Potassium 4.2 mmol/L (3.5-5.1) 05/12/20 14:43 Chloride 105 mmol/L (98-107) 05/12/20 14:43 Carbon Dioxide 24 mmol/L (21-32) 05/12/20 14:43 BUN 15 mg/dL (7-18) 05/12/20 14:43 Creatinine 1.24 mg/dL (0.55-1.3) 05/12/20 14:43 Estimated GFR 60 mL/min (=/>90) L 05/12/20 14:43 Glucose 347 mg/dL (74-106) H 05/12/20 14:43 Lactic Acid 1.3 mmol/L (0.4-2.0) 05/12/20 14:43 Calcium 8.9 mg/dL (8.5-10.1) 05/12/20 14:43 Total Bilirubin 0.4 mg/dL (0.2-1.0) 05/12/20 14:43 AST 19 U/L (15-37) 05/12/20 14:43 ALT 27 U/L (12-78) 05/12/20 14:43 Alkaline Phosphatase 96 U/L (45-117) 05/12/20 14:43 Serum Total Protein 8.3 g/dL (6.4-8.2) H 05/12/20 14:43 Albumin 3.5 g/dL (3.4-5.0) 05/12/20 14:43 Globulin 4.8 g/dL (2.3-3.5) H 05/12/20 14:43 Albumin/Globulin Ratio 0.7 (1.1-1.8) L 05/12/20 14:43 Procalcitonin < 0.05 ng/mL (<0.050) 05/12/20 14:43 Medications List Reviewed: Yes Assessment And Plan - Plan Assessment: 1. necrotic ulcer to left great toe with left foot cellulitis 2. Diabetes type 2 3. Anemia plan: 1. Continue IV antibiotics. Patient will need antibiotic course of 2 weeks. Change to p.o. antibiotics for discharge-doxycycline. Will follow up outpatient with Dr. Martin for his wound. Continue santyl. 2. Sugars elevated but are improving, hA1c ordered. - Medical management per primary team -contained monitor CBC and BMP -continued monitor for signs of infection Plan of care discussed with Dr. Kumar Thank you for consultation Physician Review: Patient Assessed, Agree with Above Assessment and Plan Physician Review Additional Text: Initial chief complaint: 60-year-old male with left great toe cellulitis Physical exam: Patient alert, cooperative no acute distress. Heart: Regular rate rhythm Lungs: Clear to auscultation Abdomen: Soft nontender nondistended Extremities: Swelling to the left toe improved. Necrotic area unchanged. No significant erythema noted at this time. Pain stable. Impression: Left great toe cellulitis with diabetic foot ulcer suspect osteomyelitis and PVD Diabetes mellitus type 2 insulin-dependent with hyperglycemia Hypertension Plan: Left great toe cellulitis with diabetic foot ulcer suspect osteomyelitis and PVD: Patient doing well at this time. Will Hep-Lock IV fluids if taking good oral intake. Continue IV antibiotic therapy-vancomycin and cefepime. Pharmacy to monitor and adjust medication. Will provide medication for pain. Awaiting MRI to evaluate for possible osteomyelitis. Also waiting on arterial Doppler to evaluate for PVD. Spoke with surgery today. No intervention at this time. Waiting on MRI. Possible intervention tomorrow. Will keep the patient NPO after midnight in the event patient needs debridement. If MRI positive patient will need long-term IV antibiotic therapy. If so patient will require PICC line and possible placement. Other options will need to be considered including outpatient antibiotic therapy, long-term acute facility placement, or skilled placement. If workup unremarkable patient will likely just require surgical intervention and oral antibiotic therapy. Continue diabetic medication. Anticipate possible DC as early as tomorrow if workup negative. I will turn the service over to the hospitalist team tomorrow. I will go plan of care with him. Diabetes mellitus type 2 insulin-dependent with hyperglycemia: Will check A1c. Accu-Cheks in place. Sliding scale also in place. Will start metformin. Continue Lantus. Patient takes insulin therapy at home. Continue to adjust medication for better control. Hypertension: Altace Adjusted. Continue monitor and adjust medication.
[2020-05-16 14:41] VITALS: BP 175/84; TEMP 97.9
== END 2020-05-16 12:56 | disposition home or self-care (01) | DRG 264 ==
LOC: ER 13:57 → ERHOLD 16:57 → 2ND 22:34
PROVIDERS: ADMIT Family Medicine; ATTEND Hospitalist
PROC: 0JBR0ZZ Excision of Left Foot Subcutaneous Tissue and Fascia, Open Approach (ICD-10-PCS; principal; 2020-05-14 11:45)
DX: E11.52 Type 2 diabetes mellitus with diabetic peripheral angiopathy with gangrene (principal); M86.8X7 Other osteomyelitis, ankle and foot; I96 Gangrene, not elsewhere classified; E11.628 Type 2 diabetes mellitus with other skin complications; E11.621 Type 2 diabetes mellitus with foot ulcer; E11.69 Type 2 diabetes mellitus with other specified complication; E11.65 Type 2 diabetes mellitus with hyperglycemia; L97.529 Non-pressure chronic ulcer of other part of left foot with unspecified severity; L03.032 Cellulitis of left toe; D64.9 Anemia, unspecified; I10 Essential (primary) hypertension; Z88.5 Allergy status to narcotic agent; Z79.4 Long term (current) use of insulin; Z79.899 Other long term (current) drug therapy; Z20.822 Contact with and (suspected) exposure to COVID-19
CPT/HCPCS: 36415; 80048; 80053; 80061; 80202; 82947; 83036; 83605; 83735; 84145; 84439; 84443; 85018; 85025; 87040; 88304; 93925; 96361; 96365; 96366; 96375; 99285; J0692; J1650; J1815; J2250; J2405; J2543; J2704; J3010; J3370; J3475; J3480; J3590; J7030; J7040; J7050; U0003

== ENCOUNTER 2020-06-12 08:11 | Day surgery (SDC) | payer BC ==
--- NOTE | 2020-06-11 12:20 | RAD REPORT ---
EXAM DESCRIPTION: RAD - Chest Pa And Lat (2 Views) - 06/11/2020 12:11 pm CLINICAL HISTORY: preop, pending toe amputation COMPARISON: April 2017 TECHNIQUE: Frontal and lateral views of the chest were obtained. FINDINGS: The lungs are clear. Interstitial markings match comparison. Heart size is normal and ursula tral vasculature is within normal limits. No pleural effusion or pneumothorax seen. No acute bony f inding noted. No aortic abnormality. IMPRESSION: No acute cardiopulmonary process.
[2020-06-11 13:35] LABS: Absolute Lymphocytes (CBC) 1.4 K/uL (0.7-4.9); Basophils % 0.9 % (0-1.3); Hematocrit 41.8 % (39.6-49.0); MPV 9.7 fL (7.6-11.3); RBC Red Blood Cell Count 4.47 M/uL (4.33-5.43)
[2020-06-12] MEDS ORDERED: KETOROLAC 30 MG/ML INJ ONE (08:43)
[2020-06-12] MEDS ORDERED: NA CHLORIDE 0.9% 1,000 ML ONE (08:43)
[2020-06-12] MEDS ORDERED: CIPROFLOXACIN 400mg IV 400 MG/200 ML BAG IV ONE (08:43)
[2020-06-12] MEDS ORDERED: MIDAZOLAM HCL 2 MG/2 ML INJ ONE (08:43)
[2020-06-12] MEDS ORDERED: propofoL 200 MG/20 ML VIAL IV ONE ×3 (08:43→10:11)
[2020-06-12] MEDS ORDERED: FENTANYL CITR 100 MCG/2 ML ONE (08:43)
[2020-06-12] MEDS ORDERED: LIDOCAINE 2% MPF 5 ML VIAL ONE (08:44)
[2020-06-12] MEDS ORDERED: dexAMETHasone 4 MG/ML VIAL ONE (08:44)
[2020-06-12] MEDS ORDERED: ONDANSETRON 4 MG/2 ML VIAL ONE (08:44)
[2020-06-12] MEDS ORDERED: NS 0.9% VIAL 10 ML ONE (08:53)
[2020-06-12] MEDS ORDERED: dexAMETHasone 10 MG/ML VIAL ONE (08:53)
--- NOTE | 2020-06-12 10:28 | P.BOP ---
Preoperative diagnosis: gangrenous left first toe Postoperative diagnosis: same Primary procedure: Left first toe amputation Estimated blood loss: <10cc Specimen: toe Findings: as above Anesthesia: General Drain(s): Other (wet to dry) Transferred to: Recovery Room Condition: Good
[2020-06-12 10:41] VITALS: BP 130/79; TEMP 96.6; O2SAT 97
--- NOTE | 2020-06-12 12:53 | DS ---
Date of Discharge: 06/12/2020 Diagnosis: Gangrene of left first toe. Procedure: Left first toe amputation. Disposition: Home. Plan: Wet-to-dry dressing, normal saline daily. Medications include Tylenol No.3 q.4 hours p.r.n. p ain, Cipro 500 p.o. q.12. Bactroban ointment. May take a shower with dressings off, but have to charles p the area covered to avoid contamination for the rest of the body. Then when he finished the shower , he can remove the plastic back from his foot or his protection and then clean the area with soap an d water and then apply Bactroban. We will see the patient in the [facility] in 1 week from now. ZULAY Voice ID: [id number] Report ID: [id number]
--- NOTE | 2020-06-12 21:53 | OP ---
Date of Procedure: 06/12/2020 Surgeon: Saul Martin MD Preoperative Diagnosis: Gangrenous left first toe. Postoperative Diagnosis: Gangrenous left first toe. Procedure: Amputation of left first toe. Anesthesia: General plus local. Packing: Wet-to-dry, normal saline. Indications: This is the case of a male, who comes to us with gangrene of the first toe. He has bee n dealing with that for few weeks, already trying to do wound care, does not improve, still all black , macerated; so he decided for the amputation. The benefits, alternatives, and risks of amputation w ere fully explained which include, but not limited to infection, bleeding, damage to adjacent structu res, anesthesia complication, UT, and even . He also understands this may not relieve any sympt oms. He might need more than one surgical intervention. He will require wound care and followup. Inna healy understands the importance of diabetes control and also offloading that area. He signed a consent. Procedure In Detail: The patient was brought to the operating room, placed in supine position. Anes thesia was done without complication. A time-out was called. Left foot was prepped and draped in a sterile fashion. The patient has most of the skin area is necrotic, so we do not feel comfortable cl osing this wound. We are going to remove the amputation, let that close by secondary intention. So, we made an incision in the skin that we have available in that area to ellipse skin extra to cover t he metatarsal bone and we did the amputation with a combination of a sharp knife and also Bovie caute rizer. At the area of metatarsal head, we excoriated the end of that metatarsal head. The area was irrigated. Hemostasis was obtained. A 3-0 chromic was used for the subcutaneous tissue and the woun d was left to close by secondary intention with wet-to-dry dressing. The patient tolerated the procedure well. The patient sent to recovery in stable condition. Sponge count and instrument c ounts were correct. HM/MODL Voice ID: [id number] Report ID: [id number]
== END 2020-06-12 11:42 | disposition home or self-care (01) ==
LOC: OR 08:11
PROVIDERS: ATTEND Surgery
PROC: 0Y6N0Z4 Detachment at Left Foot, Complete 1st Ray, Open Approach (ICD-10-PCS; principal; 2020-06-12 09:00)
DX: I96 Gangrene, not elsewhere classified (principal); Z20.822 Contact with and (suspected) exposure to COVID-19
CPT/HCPCS: 93005; 85025; 80048; 36415; 82947; 88305; 71046; 28810; U0003; J2704 ×2; J2250; J3010; J1100; J7030; J2405; J0744

== ENCOUNTER 2020-06-18 10:40 | Emergency (ER) | payer BC ==
--- OUTSIDE RECORDS SUMMARY | 2020-06-18 10:43 | XMS REPORT | Continuity of Care Document ---
:1960 Author Organization [facility] t Address [address] [place] [address] Dr. Westbrook [address] [place] [id number] Care Team Providers Name Role Phone Unavailable Unavailable Unavailable Problems This patient has no known problems. Allergies, Adverse Reactions, Alerts This patient has no known allergies or adverse reactions. Medications This patient has no known medications. Procedures This patient has no known procedures. Results This patient has no known results.
--- NOTE | 2020-06-18 12:50 | ER ---
Nurse's Notes [facility] Name: Westley Ma Age: 60 yrs Sex: Male : 1960 Arrival Date: 06/18/2020 Time: 10:43 Bed 6 Private MD: Diagnosis: Cellulitis and acute lymphangitis of other parts of limb-LEFT FOOT, BASE OF LEFT GREAT TOE, AMPUTATION;Type 2 diabetes mellitus Presentation: 06/18 10:50 Chief complaint: Patient states: Had L big toe amputation on 06/12/2020. Noticed this iw morning it had pus and don't look too good. Denies fever.. Coronavirus screen: Client denies travel out of the [place] in the last 14 days. At this time, the client does not indicate any symptoms associated with coronavirus-19. Ebola Screen: Patient negative for fever greater than or equal to 101.5 degrees Fahrenheit, and additional compatible Ebola Virus Disease symptoms Patient denies exposure to infectious person. Patient denies travel to an Ebola-affected area in the 21 days before illness onset. No symptoms or risks identified at this time. Initial Sepsis Screen: Does the patient meet any 2 criteria? No. Patient's initial sepsis screen is negative. Does the patient have a suspected source of infection? No. Patient's initial sepsis screen is negative. Risk Assessment: Do you want to hurt yourself or someone else? Patient reports no desire to harm self or others. Onset of symptoms was June 18, 2020. 10:50 Method Of Arrival: Wheelchair iw 10:50 Acuity: KWADWO 3 iw Historical: - Allergies: 10:55 Codeine; iw - PMHx: 10:55 Diabetes - NIDDM; High Cholesterol; Diabetes - IDDM; Hypertension; iw - PSHx: 10:55 left ankle; L toe amputation; iw - Immunization history:: Adult Immunizations up to date, Pneumococcal vaccine is up to date, Flu vaccine is up to date. - Social history:: Smoking status: Patient denies any tobacco usage or history of. Screenin:10 Abuse screen: Denies threats or abuse. Denies injuries from another. Nutritional jl7 screening: No deficits noted. Tuberculosis screening: No symptoms or risk factors identified. Assessment: 11:10 General: Appears in no apparent distress. uncomfortable, Behavior is calm, cooperative, jl7 appropriate for age. Pain: Complains of pain in left first toe Pain currently is 4 out of 10 on a pain scale. Neuro: Level of Consciousness is awake, alert, obeys commands, Oriented to person, place, time, situation. Cardiovascular: Patient's skin is warm and dry. Respiratory: Airway is patent Respiratory effort is even, unlabored, Respiratory pattern is regular, symmetrical. Derm: Skin is pink, warm \T\ dry. Wound noted left first toe Wound is No pus noted at surgical incision, reports she washed it off. Vital Signs: 10:50 BP 117 / 81; Pulse 91; Resp 16 S; Temp 97.8(TE); Pulse Ox 98% on R/A; Weight 104.33 kg iw (R); Height 6 ft. 0 in. (182.88 cm) (R); Pain 4/10; 11:56 BP 145 / 75; Pulse 81; Resp 17; Pulse Ox 98% ; jl7 10:50 Body Mass Index 31.19 (104.33 kg, 182.88 cm) iw ED Course: 10:43 Patient arrived in ED. as 10:54 Triage completed. iw 10:55 Arm band placed on right wrist. iw 10:59 Miguelito Zhao MD is Attending Physician. michael 11:04 Murphy Cartwright RN is Primary Nurse. jl7 11:10 Patient has correct armband on for positive identification. Bed in low position. Call jl7 light in reach. Side rails up X 1. Pulse ox on. NIBP on. 12:30 Wound culture swab sent to lab. jl7 12:49 Saul Martin MD is Referral Physician. michael 13:00 Wound care: was dressed with 4X4s. jl7 13:23 Foot Left 3 View XRAY In Process Unspecified. EDMS 13:48 No provider procedures requiring assistance completed. Patient did not have IV access jl7 during this emergency room visit. Administered Medications: 12:41 CANCELLED (Duplicate Order): NS 0.9% 1000 ml IV at 125 ml/hr continuous michael 12:41 CANCELLED (Duplicate Order): vancoMYCIN 1 grams IVPB once over 2 hrs michael 12:41 CANCELLED (Duplicate Order): Zosyn 3.375 grams IVPB once over 60 mins; (mix in NS 100 michael mL) 12:41 CANCELLED (Duplicate Order): NS 0.9% 1000 ml IV at 125 ml/hr continuous [facility] 13:05 Drug: Doxycycline 200 mg Route: PO; aa5 13:43 Follow up: Response: No adverse reaction jl7 13:05 Drug: Bactrim (160 mg-800 mg (DS) 1 tablet Route: PO; aa5 13:43 Follow up: Response: No adverse reaction jl7 Outcome: 12:50 Discharge ordered by . [facility] 13:00 Discharged to home ambulatory. jl7 13:00 Condition: stable 13:00 Discharge instructions given to patient, family, Instructed on discharge instructions, follow up and referral plans. medication usage, Demonstrated understanding of instructions, follow-up care, medications, Prescriptions given X 2. 13:49 Patient left the ED. jl7 Signatures: Dispatcher [employer] EDMS Miguelito Zhao MD MD cha Martinez, Amelia as Williams, Irene, RN RN iw Sonia Paz, YOSEF RN Murphy Chu RN RN jl7 Ainsley Elias RN RN ca1 Corrections: (The following items were deleted from the chart) 10:55 10:50 Chief complaint: Patient states: Had L big toe amputation on 06/12/2020. Noticed ca1 this morning it had pus and don't look too good. Denies fever iw 10:56 10:50 Chief complaint: Patient states: Had L big toe amputation on 06/12/2020. Noticed ca1 this morning it had pus and don't look too good. Denies fever ca1 12:24 11:03 Sonia Paz, RN is Primary Nurse. aa5 aa5
--- NOTE | 2020-06-18 12:51 | EDPHYS ---
Physician Documentation [facility] Name: Westley Ma Age: 60 yrs Sex: Male : 1960 Arrival Date: 06/18/2020 Time: 10:43 Bed 6 Private MD: ED Physician Miguelito Zhao HPI: 06/18 12:38 This 60 yrs old Male presents to ER via Wheelchair with complaints of Wound michael Check. 12:38 Patient presents to ED for recheck of: cellulitis. The affected area is on the left michael first toe and medial aspect of left toes. Previous treatment: Outpatient prescription(s): The patient was given prescription(s) for C. Historical: - Allergies: 10:55 Codeine; iw - PMHx: 10:55 Diabetes - NIDDM; High Cholesterol; Diabetes - IDDM; Hypertension; iw - PSHx: 10:55 left ankle; L toe amputation; iw - Immunization history:: Adult Immunizations up to date, Pneumococcal vaccine is up to date, Flu vaccine is up to date. - Social history:: Smoking status: Patient denies any tobacco usage or history of. ROS: 12:43 Constitutional: Negative for fever, chills, and weight loss, Eyes: Negative for injury, michael pain, redness, and discharge, ENT: Negative for injury, pain, and discharge, Neck: Negative for injury, pain, and swelling, Cardiovascular: Negative for chest pain, palpitations, and edema, Respiratory: Negative for shortness of breath, cough, wheezing, and pleuritic chest pain, Abdomen/GI: Negative for abdominal pain, nausea, vomiting, diarrhea, and constipation, Back: Negative for injury and pain, : Negative for injury, bleeding, discharge, and swelling, Neuro: Negative for headache, weakness, numbness, tingling, and seizure, Psych: Negative for depression, anxiety, suicide ideation, homicidal ideation, and hallucinations, Allergy/Immunology: Negative for hives, rash, and allergies, Endocrine: Negative for neck swelling, polydipsia, polyuria, polyphagia, and marked weight changes, Hematologic/Lymphatic: Negative for swollen nodes, abnormal bleeding, and unusual bruising. 12:43 MS/extremity: Positive for erythema, pain, swelling, tenderness, of the left first toe and medial aspect of left toes. 12:43 Skin: Positive for cellulitis, erythema, of the left first toe and medial aspect of left toes. Exam: 12:43 Constitutional: This is a well developed, well nourished patient who is awake, alert, michael and in no acute distress. Head/Face: Normocephalic, atraumatic. Eyes: Pupils equal round and reactive to light, extra-ocular motions intact. Lids and lashes normal. Conjunctiva and sclera are non-icteric and not injected. Cornea within normal limits. Periorbital areas with no swelling, redness, or edema. ENT: Nares patent. No nasal discharge, no septal abnormalities noted. Tympanic membranes are normal and external auditory canals are clear. Oropharynx with no redness, swelling, or masses, exudates, or evidence of obstruction, uvula midline. Mucous membranes moist. Neck: Trachea midline, no thyromegaly or masses palpated, and no cervical lymphadenopathy. Supple, full range of motion without nuchal rigidity, or vertebral point tenderness. No Meningismus. Chest/axilla: Normal chest wall appearance and motion. Nontender with no deformity. No lesions are appreciated. Cardiovascular: Regular rate and rhythm with a normal S1 and S2. No gallops, murmurs, or rubs. Normal PMI, no JVD. No pulse deficits. Respiratory: Lungs have equal breath sounds bilaterally, clear to auscultation and percussion. No rales, rhonchi or wheezes noted. No increased work of breathing, no retractions or nasal flaring. Abdomen/GI: Soft, non-tender, with normal bowel sounds. No distension or tympany. No guarding or rebound. No evidence of tenderness throughout. Back: No spinal tenderness. No costovertebral tenderness. Full range of motion. Neuro: Awake and alert, GCS 15, oriented to person, place, time, and situation. Cranial nerves II-XII grossly intact. Motor strength 5/5 in all extremities. Sensory grossly intact. Cerebellar exam normal. Normal gait. Psych: Awake, alert, with orientation to person, place and time. Behavior, mood, and affect are within normal limits. 12:43 Skin: cellulitis, that is minimal, induration, that is mild is noted, injury, SP AMPUTATION LEFT GREAT TOE. Vital Signs: 10:50 BP 117 / 81; Pulse 91; Resp 16 S; Temp 97.8(TE); Pulse Ox 98% on R/A; Weight 104.33 kg iw (R); Height 6 ft. 0 in. (182.88 cm) (R); Pain 4/10; 11:56 BP 145 / 75; Pulse 81; Resp 17; Pulse Ox 98% ; jl7 10:50 Body Mass Index 31.19 (104.33 kg, 182.88 cm) iw MDM: 10:59 Patient medically screened. michael 12:45 Differential diagnosis: cellulitis. Data reviewed: vital signs, nurses notes, [facility] radiologic studies, plain films. Data interpreted: car changer: rate is 81 beats/min, rhythm is Pulse oximetry: on room air is 98 %. Test interpretation: by ED physician or midlevel provider: plain radiologic studies. Counseling: I had a detailed discussion with the patient and/or guardian regarding: the historical points, exam findings, and any diagnostic results supporting the discharge/admit diagnosis, lab results, the need for outpatient follow up, for definitive care, a general surgeon. Physician consultation: Saul Martin MD was called at 12:53, was contacted at 12:53, regarding patient's condition, need to come to ED to see patient, and will see patient in office, tomorrow. 06/18 12:38 Order name: Foot Left 3 View XRAY [facility] 06/18 12:39 Order name: Wound Culture [facility] 06/18 12:38 Order name: O2 Per Protocol; Complete Time: 13:10 [facility] 06/18 12:38 Order name: O2 Sat Monitoring; Complete Time: 13:10 [facility] 06/18 12:38 Order name: Wound dressing: DAMP TO DRY; Complete Time: 13:43 [facility] 06/18 12:48 Order name: Post-op Orthopedic Shoe; Complete Time: 13:43 [facility] Administered Medications: 12:41 CANCELLED (Duplicate Order): NS 0.9% 1000 ml IV at 125 ml/hr continuous michael 12:41 CANCELLED (Duplicate Order): vancoMYCIN 1 grams IVPB once over 2 hrs michael 12:41 CANCELLED (Duplicate Order): Zosyn 3.375 grams IVPB once over 60 mins; (mix in NS 100 michael mL) 12:41 CANCELLED (Duplicate Order): NS 0.9% 1000 ml IV at 125 ml/hr continuous michael 13:05 Drug: Doxycycline 200 mg Route: PO; aa5 13:43 Follow up: Response: No adverse reaction jl7 13:05 Drug: Bactrim (160 mg-800 mg (DS) 1 tablet Route: PO; aa5 13:43 Follow up: Response: No adverse reaction jl7 Disposition: 06/18/20 12:50 Discharged to Home. Impression: Cellulitis and acute lymphangitis of other parts of limb - LEFT FOOT, BASE OF LEFT GREAT TOE, AMPUTATION, Type 2 diabetes mellitus. - Condition is Stable. - Discharge Instructions: Type 2 Diabetes Mellitus, Diagnosis, Adult, Cellulitis, Adult, [id number], Type 2 Diabetes Mellitus, Diagnosis, Adult, [id number]. - Prescriptions for Doxycycline Hyclate 100 mg Oral Tablet - take 1 tablet by ORAL route every 12 hours; 20 tablet. Bactrim DS 800- 160 mg Oral Tablet - take 1 tablet by ORAL route every 12 hours for 10 days; 20 tablet. - Medication Reconciliation Form, Thank You Letter, Antibiotic Education, Prescription Opioid Use form. - Follow up: Saul Martin MD; When: Tomorrow; Reason: Recheck today's complaints, Continuance of care, Re-evaluation by your physician. - Problem is new. - Symptoms have improved. Signatures: Dispatcher [employer] EDMS Miguelito Zhao MD MD cha Williams, Irene, RN Sonia Aldrich RN RN aa5 Murphy Cartwright RN RN jl7 Corrections: (The following items were deleted from the chart) 12:41 12:38 NS 0.9% 1000 ml IV at 125 ml/hr continuous ordered. [facility] 12:41 12:38 vancoMYCIN 1 grams IVPB once over 2 hrs ordered. [facility] 12:41 12:38 Zosyn 3.375 grams IVPB once over 60 mins; (mix in NS 100 mL) ordered. [facility] 12:41 12:38 NS 0.9% 1000 ml IV at 125 ml/hr continuous ordered. [facility] 12:42 12:38 Cardiac monitoring ordered. [facility] 12:44 12:39 BASIC METABOLIC PANEL+C.LAB.BRZ ordered. EDMS EDMS 12:44 12:39 CBC+H.LAB.BRZ ordered. EDMS EDMS 12:44 12:39 HEPATIC FUNCTION+C.LAB.BRZ ordered. EDMS EDMS 12:44 12:39 MAGNESIUM+C.LAB.BRZ ordered. EDMS EDMS 12:44 12:39 PROBNP+C.LAB.BRZ ordered. EDMS EDMS 12:44 12:39 PROTIME (+INR)+COAG.LAB.BRZ ordered. EDMS EDMS 12:44 12:39 TROPONIN (EMERG DEPT USE ONLY)+C.LAB.BRZ ordered. EDMS EDMS 12:44 12:39 WESTERGREN SEDRATE+H.LAB.BRZ ordered. EDMS EDMS 12:45 12:39 Wound Culture+BA.LAB.BRZ ordered. EDMS EDMS 12:54 12:39 Chest Single View+RAD.RAD.BRZ ordered. EDMS EDMS 13:09 12:38 EKG - Nurse/Tech ordered. michael singh 13:09 12:38 IV Saline Lock ordered. michael singh 13:09 12:38 Labs collected and sent ordered. michael singh 13:49 12:50 06/18/2020 12:50 Discharged to Home. Impression: Cellulitis and acute jlOneal lymphangitis of other parts of limb - LEFT FOOT, BASE OF LEFT GREAT TOE, AMPUTATION; Type 2 diabetes mellitus. Condition is Stable. Forms are Medication Reconciliation Form, Thank You Letter, Antibiotic Education, Prescription Opioid Use. Follow up: Saul Martin; When: Tomorrow; Reason: Recheck today's complaints, Continuance of care, Re-evaluation by your physician. Problem is new. Symptoms have improved. michael
[2020-06-18] MEDS ORDERED: DOXYCYCLINE 100 MG CAP PO ONE (13:19)
[2020-06-18] MEDS ORDERED: SMZ./TMP. 800/160 MG TABLET ONE (13:19)
--- NOTE | 2020-06-18 13:39 | RAD REPORT ---
EXAM DESCRIPTION: RAD - Foot Left 3 View - 06/18/2020 1:23 pm CLINICAL HISTORY: Pain;Swelling, draining wound near the right first toe amputation site COMPARISON: Foot Left 3 View dated 05/12/2020 FINDINGS: Right toe has been resected. First metatarsal head shows no lucent or destructive bone michael nges. The second- fifth toes and metatarsals also without bone destructive change. No acute midfoot a bnormality. Moderate-sized plantar spur is present. No acute or destructive bony process. No air or foreign body seen in the soft tissues at the amputation site. Patient does have dense arter ial tree calcifications. IMPRESSION: No air or foreign body in the soft tissues of the left first toe amputation site. No radiographic evidence for osteomyelitis.
[2020-06-18 14:28] VITALS: TEMP 97.8; O2SAT 98
[2020-06-18 14:29] VITALS: BP 145/75
== END 2020-06-18 13:49 | disposition home or self-care (01) ==
LOC: ER 10:40
DX: L03.032 Cellulitis of left toe (principal); L03.042 Acute lymphangitis of left toe; Z89.412 Acquired absence of left great toe; E11.9 Type 2 diabetes mellitus without complications; I10 Essential (primary) hypertension; Z88.5 Allergy status to narcotic agent
CPT/HCPCS: 87070; 87205; 99284

== ENCOUNTER 2020-06-29 10:59 | Emergency (ER) | payer BC ==
--- OUTSIDE RECORDS SUMMARY | 2020-06-29 11:02 | XMS REPORT | Continuity of Care Document ---
:1960 Author Organization [facility] t Address [address] [place] [address] Dr. Westbrook [address] [place] [id number] Care Team Providers Name Role Phone Unavailable Unavailable Unavailable Problems This patient has no known problems. Allergies, Adverse Reactions, Alerts This patient has no known allergies or adverse reactions. Medications This patient has no known medications. Procedures This patient has no known procedures. Results This patient has no known results.
--- NOTE | 2020-06-29 15:04 | ER ---
Nurse's Notes [facility] Name: Westley Ma Age: 60 yrs Sex: Male : 1960 Arrival Date: 06/29/2020 Time: 11:02 Bed 23 Private MD: Diagnosis: Peripheral vascular disease, unspecified;Open wound of ankle, foot and toes Presentation: 06/29 11:15 Chief complaint: Chronic wound to left foot, sees Dr. Martin in the wound care ss clinic, c/o worsening redness and swelling over last 2 days. Coronavirus screen: At this time, the client does not indicate any symptoms associated with coronavirus-19. Ebola Screen: No symptoms or risks identified at this time. Initial Sepsis Screen: Does the patient meet any 2 criteria? No. Patient's initial sepsis screen is negative. Does the patient have a suspected source of infection? No. Patient's initial sepsis screen is negative. Risk Assessment: Do you want to hurt yourself or someone else? Patient reports no desire to harm self or others. Onset of symptoms was June 27, 2020. 11:15 Method Of Arrival: Ambulatory ss 11:15 Acuity: KWADWO 3 ss Triage Assessment: 15:00 General: Appears in no apparent distress. Behavior is calm, cooperative, appropriate kg for age. Pain: Denies pain. EENT: No deficits noted. Neuro: No deficits noted. Neuro: No deficits noted. Cardiovascular: No deficits noted. Respiratory: No deficits noted. GI: No deficits noted. : No deficits noted. Derm: Skin wound to left great toe stump Reports. Historical: - Allergies: 11:16 Codeine; ss - Immunization history:: Adult Immunizations up to date. - Family history:: not pertinent. - Social history:: Patient/guardian denies using tobacco products, Smoking status: Patient denies any tobacco usage or history of. Screenin:00 Abuse screen: Denies threats or abuse. Nutritional screening: No deficits noted. kg Tuberculosis screening: No symptoms or risk factors identified. Fall Risk None identified. Ambulatory Aid- Crutches/Cane/Walker (15 pts). Gait- Normal/Bed Rest/Wheelchair (0 pts). Assessment: 14:30 General: Appears in no apparent distress. Pain: Denies pain. Neuro: No deficits noted. kg Cardiovascular: No deficits noted. Respiratory: No deficits noted. GI: No deficits noted. : No deficits noted. EENT: No deficits noted. Derm: No deficits noted. Derm: No deficits noted. Skin Diabetic Ulcer to Left great toe. Reports. Vital Signs: 11:15 BP 140 / 72; Pulse 75; Resp 16; Temp 98.7; Pulse Ox 100% on R/A; Pain 2/10; ss ED Course: 11:02 Patient arrived in ED. ds1 11:15 Triage completed. 14:23 Miguelito Zhao MD is Attending Physician. [facility] 15:00 Patient has correct armband on for positive identification. Allergy band placed. Bed in kg low position. Call light in reach. Side rails up X 1. 15:00 No provider procedures requiring assistance completed. Patient did not have IV access kg during this emergency room visit. 15:01 Saul Martin MD is Referral Physician. [facility] 16:00 Orthopedic walking shoe applied to left foot. Bandage applied. kg 16:57 Arm band placed on right wrist. kg Administered Medications: 15:20 Drug: Silvadene Cream 1 % 1 application {Note: Left great toe stump.} Route: Topical; kg Site: wound; 15:20 Drug: Bactrim (160 mg-800 mg (DS) 1 tablet Route: PO; kg 16:10 Follow up: Response: No adverse reaction kg 16:59 Follow up: Response: No adverse reaction kg Outcome: 15:03 Discharge ordered by . [facility] 16:20 Discharged to home ambulatory. kg 16:20 Condition: stable 16:20 Discharge instructions given to patient, Instructed on discharge instructions, follow up and referral plans. wound care, Demonstrated understanding of instructions, follow-up care, medications, wound care, orthopedic walking shoe Prescriptions given X 2. 16:59 Patient left the ED. kg Signatures: Miguelito Zhao MD MD cha Sanford, Demi ds1 Sonia Paz, RN RN aa5 Taylor Escalona RN RN Monika Moreno kg Corrections: (The following items were deleted from the chart) 18:06 15:00 Sonia Paz, RN is Primary Nurse. karl barajas
--- NOTE | 2020-06-29 15:04 | EDPHYS ---
Physician Documentation [facility] Name: Westley Ma Age: 60 yrs Sex: Male : 1960 Arrival Date: 06/29/2020 Time: 11:02 Bed 23 Private MD: ED Physician Miguelito Zhao HPI: 06/29 14:51 This 60 yrs old Male presents to ER via Ambulatory with complaints of Toe michael Issue -Poss Infection. 14:51 The patient presents with pain, that is acute. The complaints affect the left foot, michael left first toe and medial aspect of left toes. Context: The problem was sustained at home, long standing issue needs vascular surgery. Onset: The symptoms/episode began/occurred 2 month(s) ago. Modifying factors: The symptoms are alleviated by nothing, the symptoms are aggravated by nothing. Associated signs and symptoms: The patient has no apparent associated signs or symptoms. Severity of symptoms: At their worst the symptoms were mild, in the emergency department the symptoms are unchanged. The patient has experienced similar episodes in the past, multiple times. Historical: - Allergies: 11:16 Codeine; ss - Immunization history:: Adult Immunizations up to date. - Family history:: not pertinent. - Social history:: Patient/guardian denies using tobacco products, Smoking status: Patient denies any tobacco usage or history of. ROS: 14:51 Constitutional: Negative for fever, chills, and weight loss, Eyes: Negative for injury, michael pain, redness, and discharge, ENT: Negative for injury, pain, and discharge, Neck: Negative for injury, pain, and swelling, Cardiovascular: Negative for chest pain, palpitations, and edema, Respiratory: Negative for shortness of breath, cough, wheezing, and pleuritic chest pain, Abdomen/GI: Negative for abdominal pain, nausea, vomiting, diarrhea, and constipation, Back: Negative for injury and pain, : Negative for injury, bleeding, discharge, and swelling, Skin: Negative for injury, rash, and discoloration, Neuro: Negative for headache, weakness, numbness, tingling, and seizure, Psych: Negative for depression, anxiety, suicide ideation, homicidal ideation, and hallucinations, Allergy/Immunology: Negative for hives, rash, and allergies, Endocrine: Negative for neck swelling, polydipsia, polyuria, polyphagia, and marked weight changes. 14:51 MS/extremity: Positive for decreased range of motion, pain, swelling, tenderness, of the plantar aspect of left first toe and left first toe. Exam: 14:51 Constitutional: This is a well developed, well nourished patient who is awake, alert, michael and in no acute distress. Head/Face: Normocephalic, atraumatic. Eyes: Pupils equal round and reactive to light, extra-ocular motions intact. Lids and lashes normal. Conjunctiva and sclera are non-icteric and not injected. Cornea within normal limits. Periorbital areas with no swelling, redness, or edema. ENT: Nares patent. No nasal discharge, no septal abnormalities noted. Tympanic membranes are normal and external auditory canals are clear. Oropharynx with no redness, swelling, or masses, exudates, or evidence of obstruction, uvula midline. Mucous membranes moist. Neck: Trachea midline, no thyromegaly or masses palpated, and no cervical lymphadenopathy. Supple, full range of motion without nuchal rigidity, or vertebral point tenderness. No Meningismus. Chest/axilla: Normal chest wall appearance and motion. Nontender with no deformity. No lesions are appreciated. Cardiovascular: Regular rate and rhythm with a normal S1 and S2. No gallops, murmurs, or rubs. Normal PMI, no JVD. No pulse deficits. Respiratory: Lungs have equal breath sounds bilaterally, clear to auscultation and percussion. No rales, rhonchi or wheezes noted. No increased work of breathing, no retractions or nasal flaring. Abdomen/GI: Soft, non-tender, with normal bowel sounds. No distension or tympany. No guarding or rebound. No evidence of tenderness throughout. Back: No spinal tenderness. No costovertebral tenderness. Full range of motion. Male : Normal genitalia with no discharge or lesions. Skin: Warm, dry with normal turgor. Normal color with no rashes, no lesions, and no evidence of cellulitis. Neuro: Awake and alert, GCS 15, oriented to person, place, time, and situation. Cranial nerves II-XII grossly intact. Motor strength 5/5 in all extremities. Sensory grossly intact. Cerebellar exam normal. Normal gait. Psych: Awake, alert, with orientation to person, place and time. Behavior, mood, and affect are within normal limits. 14:51 Musculoskeletal/extremity: Extremities: erythema, pain, ROM: intact in all extremities, full active range of motion, full passive range of motion, sever pvd left lower extremity. 14:51 Skin: cellulitis, that is mild, induration, that is mild is noted. Vital Signs: 11:15 BP 140 / 72; Pulse 75; Resp 16; Temp 98.7; Pulse Ox 100% on R/A; Pain 2/10; ss MDM: 14:23 Patient medically screened. michael 14:57 Differential diagnosis: cellulitis. Data reviewed: vital signs, nurses notes. 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 Counseling: I had a detailed discussion with the patient and/or guardian regarding: the historical points, exam findings, and any diagnostic results supporting the discharge/admit diagnosis, the need for outpatient follow up, for definitive care, a general surgeon. Physician consultation: Saul Martin MD and will see patient in office, wound care center, give abx. 06/29 14:59 Order name: Wound dressing; Complete Time: 16:59 [facility] 06/29 14:59 Order name: Post-op shoe; Complete Time: 18:06 [facility] Administered Medications: 15:20 Drug: Silvadene Cream 1 % 1 application {Note: Left great toe stump.} Route: Topical; kg Site: wound; 15:20 Drug: Bactrim (160 mg-800 mg (DS) 1 tablet Route: PO; kg 16:10 Follow up: Response: No adverse reaction kg 16:59 Follow up: Response: No adverse reaction kg Disposition: 06/29/20 15:03 Discharged to Home. Impression: Peripheral vascular disease, unspecified, Open wound of ankle, foot and toes. - Condition is Stable. - Discharge Instructions: Peripheral Vascular Disease, Peripheral Vascular Disease, [id number], Aspirin and Your Heart. - Prescriptions for Silvadene 1 % Topical Cream - Apply to affected area 1 application by TOPICAL route every 12 hours; 50 gram. Bactrim DS 800- 160 mg Oral Tablet - take 1 tablet by ORAL route every 12 hours for 10 days; 20 tablet. - Medication Reconciliation Form, Thank You Letter, Antibiotic Education, Prescription Opioid Use form. - Follow up: Private Physician; When: 2 - 3 days; Reason: Recheck today's complaints, Continuance of care, Re-evaluation by your physician. Follow up: Saul Martin MD; When: 2 - 3 days; Reason: Recheck today's complaints, Continuance of care, Re-evaluation by your physician. - Problem is new. - Symptoms have improved. Signatures: Miguelito Zhao MD MD cha Smirch, Shelby, YOSEF RN ss Monika Moreno kg Corrections: (The following items were deleted from the chart) 16:59 15:03 06/29/2020 15:03 Discharged to Home. Impression: Peripheral vascular disease, kg unspecified; Open wound of ankle, foot and toes. Condition is Stable. Forms are Medication Reconciliation Form, Thank You Letter, Antibiotic Education, Prescription Opioid Use. Follow up: Private Physician; When: 2 - 3 days; Reason: Recheck today's complaints, Continuance of care, Re-evaluation by your physician. Follow up: Saul Martin; When: 2 - 3 days; Reason: Recheck today's complaints, Continuance of care, Re-evaluation by your physician. Problem is new. Symptoms have improved. michael
[2020-06-29] MEDS ORDERED: SMZ./TMP. 800/160 MG TABLET ONE (15:24)
[2020-06-29] MEDS ORDERED: SILVER SULFADIAZINE 1% 25 GM TOP ONE (15:24)
[2020-06-29 17:04] VITALS: BP 140/72; TEMP 98.7; O2SAT 100
== END 2020-06-29 16:59 | disposition home or self-care (01) ==
LOC: ER 10:59
DX: I70.243 Atherosclerosis of native arteries of left leg with ulceration of ankle (principal); I70.244 Atherosclerosis of native arteries of left leg with ulceration of heel and midfoot; I70.245 Atherosclerosis of native arteries of left leg with ulceration of other part of foot
CPT/HCPCS: 99283

== ENCOUNTER 2020-08-13 08:23 | Day surgery (SDC) | payer BC ==
[2020-08-09 09:04] LABS: BUN Blood Urea Nitrogen 9 mg/dL (7-18); Bicarbonate 28 mmol/L (21-32); Glucose Level 205 mg/dL (74-106); Potassium 4.7 mmol/L (3.5-5.1); Sodium Level 142 mmol/L (136-145)
[2020-08-09 09:21] LABS: Absolute Lymphocytes (CBC) 1.4 K/uL (0.7-4.9); Basophils % 0.9 % (0-1.3); Hematocrit 37.4 % (39.6-49.0); Lymphocytes % 24.8 % (15.3-44.8); MPV 9.2 fL (7.6-11.3); RBC Red Blood Cell Count 4.06 M/uL (4.33-5.43)
[2020-08-13] MEDS ORDERED: NA CHLORIDE 0.9% 1,000 ML ONE (08:59)
[2020-08-13] MEDS ORDERED: CEFAZOLIN/SWI 1gm 1 GM/10 ML SYR ONE (08:59)
[2020-08-13] MEDS: CEFAZOLIN/SWI 1gm 1 GM/10 ML SYR IVP SCH ×2 (09:56→10:10)
[2020-08-13] MEDS ORDERED: propofoL 200 MG/20 ML VIAL IV ONE (10:13)
[2020-08-13] MEDS ORDERED: FENTANYL CITR 100 MCG/2 ML ONE (10:14)
[2020-08-13] MEDS ORDERED: LIDOCAINE 1% MPF 5 ML VIAL ONE (10:14)
[2020-08-13] MEDS ORDERED: MIDAZOLAM HCL 2 MG/2 ML INJ ONE (10:14)
[2020-08-13] MEDS ORDERED: KETOROLAC 30 MG/ML INJ ONE (10:22)
--- NOTE | 2020-08-13 10:40 | P.BOP ---
Preoperative diagnosis: Right 1st met osteomyelitis, non healing wound, PVD Postoperative diagnosis: same Primary procedure: Transmetatarsal amputation Right 1st metatarsal bone Estimated blood loss: <10cc Specimen: bone Findings: as above Anesthesia: General Complications: None Transferred to: Recovery Room Condition: Good
[2020-08-13] MEDS ORDERED: TRAMADOL 37.5mg/APAP 325mg PER TAB ONE (11:55)
[2020-08-13 13:14] VITALS: BP 164/69; TEMP 97.4; O2SAT 100
--- NOTE | 2020-08-13 20:18 | OP ---
Date of Procedure: 08/13/2020 Surgeon: Saul Martin MD Preoperative Diagnoses: Right foot nonhealing wound, diabetic wound, history of peripheral vascular disease, history of osteomyelitis, history of emergent amputation of the toe. Postoperative Diagnoses: Right foot nonhealing wound, diabetic wound, history of peripheral vascular disease, history of osteomyelitis, history of emergent amputation of the toe. Procedure: Transmetatarsal amputation of the right first metatarsal bone. Estimated Blood Loss: Less than 10 cc. Anesthesia: General plus local. Indications: This is the case of a 60-year-old patient who received emergently removal of the first toe on the right foot several months ago. The patient's circulation was very poor. In the last few weeks, he has been visiting his vascular doctor who has been improving his circulation to the point t hat the workup is done. The circulation is better, but we have a metatarsal head that gets exposed s chadd the previous wound keep progressing backward from a proximal allowing that area to be exposed an d now is not healing because of that. So we offered transmetatarsal amputation of that bone in order for us to hide the rest of the bone and give it a chance for this to heal. He still has to continue taking care of this wound, [facility], going to his vascular, healthcare wor kers and controlling his diabetes. He understands the benefits, alternatives, and risks of the trans met amputation, which include, but not limited to infection, bleeding, damage to adjacent structures, anesthesia complication, nonhealing wound, OH, and even . He also understands this may not rel ieve his symptoms. He might need more than one surgical intervention. He understood, signed a conse nt. Procedure: The patient was brought to the operating room, placed in supine position. Anesthesia was done without complication. Right foot was prepped and draped in a usual sterile fashion. Local ane sthesia was applied, this after time-out. After that, we proceeded to dissect the area of first ____ and expose it as we can and using a TPS sewing machine, we proceeded to transect that area and sending the distal bone for specimen. Once we have that we also pulled the tendon that corresponded to that area and cut it to the first metatarsal region region. At the end, we noticed th at we irrigated the area profusely. We approximated the subcutaneous tissue with 3-0 chromic and lef t the wound close by secondary intention, left the wound open. That is why he will need wound care. We cannot see the bone anymore. It is proximal enough to hide between the tissues. Area was covere d with iodoform packing and dressings on top. The patient tolerated the procedure well. The patient was sent to Recovery in stable condition. Discharge Summary: Diagnosis: Right first metatarsal bone osteomyelitis, nonhealing diabetic wound, peripheral vascular disease. Procedure: Transmetatarsal amputation, right first metatarsal bone. Disposition: Home. Plan: The patient will continue with wet-to-dry dressing until he gets the wound VAC once again. Fo llow up with the wound healing center in 1 week. Medications include Cipro and Ultracet. ERIC/MODL Voice ID: [id number] Report ID: [id number]
== END 2020-08-13 12:30 | disposition home or self-care (01) ==
LOC: OR 08:23
PROVIDERS: ATTEND Surgery
PROC: 0Y6M0Z4 Detachment at Right Foot, Complete 1st Ray, Open Approach (ICD-10-PCS; principal; 2020-08-13 10:15)
DX: E11.621 Type 2 diabetes mellitus with foot ulcer (principal); L97.521 Non-pressure chronic ulcer of other part of left foot limited to breakdown of skin; M86.9 Osteomyelitis, unspecified; I73.9 Peripheral vascular disease, unspecified; E11.9 Type 2 diabetes mellitus without complications; T81.89XD Other complications of procedures, not elsewhere classified, subsequent encounter; S91.301D Unspecified open wound, right foot, subsequent encounter; Z20.822 Contact with and (suspected) exposure to COVID-19
CPT/HCPCS: 28810; 85025; 80048; 36415; 82947 ×2; 88305; 88311; U0002; J2704; J2250; J3010; J0690; J7030

== ENCOUNTER 2020-12-19 08:21 | Emergency (ER) | payer BC ==
[2020-12-19 09:03] LABS: Absolute Lymphocytes (CBC) 0.6 K/uL (0.7-4.9); Basophils % 0.8 % (0-1.3); Hematocrit 35.6 % (39.6-49.0); Lymphocytes % 5.8 % (15.3-44.8); MPV 8.5 fL (7.6-11.3); RBC Red Blood Cell Count 3.84 M/uL (4.33-5.43)
--- NOTE | 2020-12-19 09:03 | RAD REPORT ---
[facility] 8:53 am CLINICAL HISTORY: abdominal pain, flank pain, left COMPARISON: No comparisons TECHNIQUE: CT of the abdomen and pelvis was performed. All CT scans are performed using dose optimization technique as appropriate and may include automated exposure control or mA/KV adjustment according to patient size. FINDINGS: Lower chest: Circumferentially thickened distal esophagus suggesting gastroesophageal refl ux disease. Coronary artery calcifications. No pericardial effusion. Liver: No acute abnormality or suspicious lesions. Biliary: No biliary ductal dilatation. Stomach: No significant focal abnormality. Duodenum: No significant focal abnormality. Pancreas: No significant abnormality. Spleen: No significant abnormality. Adrenal: No suspicious lesions. Kidney/ureter: No hydronephrosis. No renal calculi. Mild left periureteric stranding. Retroperitoneum: No retroperitoneal adenopathy. Vascular: No aneurysm. Bowel: No significant focal abnormality. Peritoneum: No ascites or free air. Bladder: Mild circumferential bladder wall thickening. Reproductive: No adnexal masses. Bones: No acute fracture. Other: n/a IMPRESSION: Mild left periureteric stranding which could reflect recently passed stone or ascending urinary tract infection
[2020-12-19 09:19] LABS: Urine Blood Negative (Negative); Urine Glucose 3+ (Negative); Urine Protein 2+ (Negative); Urine Specific Gravity 1.015 (1.005-1.030)
[2020-12-19 09:21] LABS: Albumin 3.1 g/dL (3.4-5.0); Bilirubin Direct 0.2 mg/dL (0-0.2); Bilirubin Total 0.7 mg/dL (0.2-1.0)
[2020-12-19 09:23] LABS: Potassium 4.4 mmol/L (3.5-5.1)
--- NOTE | 2020-12-19 10:04 | EDPHYS ---
Physician Documentation [facility] Name: Westley Ma Age: 60 yrs Sex: Male : 1960 Arrival Date: 12/19/2020 Time: 08:23 Bed 14 Private MD: KENNEDY Physician Miguelito Zhao HPI: 12/19 08:39 This 60 yrs old Male presents to ER via Ambulatory with complaints of Back jmm Side Pain. 08:39 The patient complains of pain in the left flank. Onset: The symptoms/episode jmm began/occurred gradually, 6 day(s) ago. Modifying factors: The symptoms are alleviated by nothing. the symptoms are aggravated by nothing. Associated signs and symptoms: Pertinent negatives: diarrhea, fever, hematuria, vomiting. The patient has not experienced similar symptoms in the past. Historical: - Allergies: 08:30 Codeine; ss - Home Meds: 08:39 Altace 2.5 mg oral cap [Active]; Metformin Oral [Active]; Toujeo SoloStar 300 unit/mL es2 (1.5 mL) subcutaneous inpn [Active]; - PMHx: 08:30 Hypertension; ss 08:37 Diabetes - IDDM; High Cholesterol; es2 08:39 Diabetes - NIDDM; es2 - Immunization history:: Client reports having NOT received the Covid vaccine. - Social history:: Smoking status: Patient denies any tobacco usage or history of. ROS: 08:39 Constitutional: Negative for fever, chills, and weight loss, Cardiovascular: Negative jmm for chest pain, palpitations, and edema, Respiratory: Negative for shortness of breath, cough, wheezing, and pleuritic chest pain. 08:39 Abdomen/GI: Positive for abdominal pain. 08:39 All other systems are negative. Exam: 08:39 Constitutional: This is a well developed, well nourished patient who is awake, alert, jmm and in no acute distress. Head/Face: atraumatic. Eyes: EOMI, no conjunctival erythema appreciated ENT: Moist Mucus Membranes Neck: Trachea midline, Supple Chest/axilla: Normal chest wall appearance and motion. Cardiovascular: Regular rate and rhythm. No edema appreciated Respiratory: Normal respirations, no respiratory distress appreciated 08:39 Skin: General appearance color normal MS/ Extremity: Moves all extremities, no obvious deformities appreciated, no edema noted to the lower extremities Neuro: Awake and alert, normal gait Psych: Behavior is normal, Mood is normal, Patient is cooperative and pleasant 08:39 Abdomen/GI: Inspection: abdomen appears normal, Bowel sounds: normal, Palpation: soft, mild abdominal tenderness, in the left lower quadrant. 08:39 Back: CVA tenderness, that is mild, is noted on the left. Vital Signs: 08:30 BP 155 / 72; Pulse 101; Resp 16; Temp 99.2(TE); Pulse Ox 100% on R/A; Weight 106.59 kg; ss Height 6 ft. 0 in. (182.88 cm); Pain 8/10; 08:37 BP 165 / 74; Pulse 95; Resp 17; Pulse Ox 99% on R/A; es2 09:58 BP 143 / 67; Pulse Ox 100% on R/A; es2 08:30 Body Mass Index 31.87 (106.59 kg, 182.88 cm) ss MDM: 08:39 Patient medically screened. [facility] 10:00 Data reviewed: vital signs, nurses notes. Counseling: I had a detailed discussion with pranay the patient and/or guardian regarding: the historical points, exam findings, and any diagnostic results supporting the discharge/admit diagnosis, radiology results, the need for outpatient follow up, to return to the emergency department if symptoms worsen or persist or if there are any questions or concerns that arise at home. ED course: Patient is alert and nontoxic in appearance in the ED. CT reveals concern for either recently passed stone or ascending infection. Will treat with oral antibiotics and the patient is otherwise given strict return precautions. Patient understood agrees plan of care.. 12/19 08:39 Order name: Basic Metabolic Panel; Complete Time: 09:24 [facility] 12/19 08:39 Order name: CBC with Diff; Complete Time: 09:07 [facility] 12/19 08:39 Order name: Hepatic Function; Complete Time: 09:24 [facility] 12/19 08:39 Order name: Lipase; Complete Time: 09:24 [facility] 12/19 08:39 Order name: CT Stone Protocol; Complete Time: 09:04 [facility] 12/19 09:18 Order name: Urine Dipstick-Ancillary; Complete Time: 09:21 [facility] 12/19 08:39 Order name: IV Saline Lock; Complete Time: 08:40 [facility] 12/19 08:39 Order name: Labs collected and sent; Complete Time: 08:40 [facility] 12/19 08:39 Order name: Urine Dipstick-Ancillary (obtain specimen); Complete Time: 09:20 [facility] Administered Medications: No medications were administered Disposition: 12/20 06:34 Co-signature as Attending Physician, Miguelito Zhao MD I agree with the assessment and michael plan of care. Disposition Summary: 12/19/20 10:03 Discharge Ordered Location: Home [facility] Condition: Stable [facility] Diagnosis - Left Flank Pain [facility] Followup: [facility] - With: Private Physician - When: 2 - 3 days - Reason: Recheck today's complaints, Continuance of care, Re-evaluation by your physician Followup: [facility] - With: Daren Ruiz MD - When: 2 - 3 days - Reason: Recheck today's complaints, Continuance of care, Re-evaluation by your physician Discharge Instructions: - Discharge Summary Sheet [facility] - Kidney Stones [facility] - Dietary Guidelines to Help Prevent Kidney Stones [facility] Forms: - Medication Reconciliation Form [facility] - Thank You Letter [facility] - Antibiotic Education [facility] - Prescription Opioid Use [facility] Prescriptions: - Cephalexin 500 mg Oral Capsule - take 1 capsule by ORAL route every 6 hours for 10 days; 40 capsule; Refills: 0, [facility] Product Selection Permitted Signatures: Dispatcher [employer] Miguelito Wahl MD MD cha Mickail, Joel, PA PA [facility] Taylor Escalona RN RN ss Smith, Elizabeth, RN RN es2 Corrections: (The following items were deleted from the chart) 12/19 08:37 08:30 PMHx: Diabetes - IDDM; ss es2 08:37 08:30 PMHx: High Cholesterol; ss es2
--- NOTE | 2020-12-19 10:04 | ER ---
Nurse's Notes [facility] Name: Westley Ma Age: 60 yrs Sex: Male : 1960 Arrival Date: 12/19/2020 Time: 08:23 Bed 14 Private MD: Diagnosis: Left Flank Pain Presentation: 12/19 08:29 Chief complaint: Patient states: L flank pain that began . Coronavirus screen: ss Client denies travel out of the [place] in the last 14 days. Ebola Screen: Patient denies exposure to infectious person. Patient denies travel to an Ebola-affected area in the 21 days before illness onset. Initial Sepsis Screen: Does the patient meet any 2 criteria? No. Patient's initial sepsis screen is negative. Does the patient have a suspected source of infection? No. Patient's initial sepsis screen is negative. Risk Assessment: Do you want to hurt yourself or someone else? Patient reports no desire to harm self or others. Onset of symptoms was December 13, 2020. 08:29 Method Of Arrival: Ambulatory ss 08:29 Acuity: [id number] 3 ss Historical: - Allergies: 08:30 Codeine; ss - Home Meds: 08:39 Altace 2.5 mg oral cap [Active]; Metformin Oral [Active]; Toujeo SoloStar 300 unit/mL es2 (1.5 mL) subcutaneous inpn [Active]; - PMHx: 08:30 Hypertension; ss 08:37 Diabetes - IDDM; High Cholesterol; es2 08:39 Diabetes - NIDDM; es2 - Immunization history:: Client reports having NOT received the Covid vaccine. - Social history:: Smoking status: Patient denies any tobacco usage or history of. Screenin:36 Abuse screen: Denies threats or abuse. Denies injuries from another. Nutritional es2 screening: No deficits noted. Tuberculosis screening: No symptoms or risk factors identified. Fall Risk IV access (20 points). Ambulatory Aid- Crutches/Cane/Walker (15 pts). Mental Status- Oriented to own ability (0 pts). Assessment: 08:34 General: Appears well nourished, Behavior is calm, cooperative, appropriate for age. es2 Pain: Complains of pain in back Pain currently is 8 out of 10 on a pain scale. Neuro: Level of Consciousness is awake, alert, obeys commands, Oriented to person, place, time, situation, Appropriate for age Speech is normal. Cardiovascular: Capillary refill < 3 seconds Patient's skin is warm and dry. Respiratory: Airway is patent Respiratory effort is even, Respiratory pattern is regular. GI: No signs and/or symptoms were reported involving the gastrointestinal system. : No signs and/or symptoms were reported regarding the genitourinary system. EENT: No signs and/or symptoms were reported regarding the EENT system. Derm: No signs and/or symptoms reported regarding the dermatologic system. Musculoskeletal: pt uses cane. Vital Signs: 08:30 BP 155 / 72; Pulse 101; Resp 16; Temp 99.2(TE); Pulse Ox 100% on R/A; Weight 106.59 kg; ss Height 6 ft. 0 in. (182.88 cm); Pain 8/10; 08:37 BP 165 / 74; Pulse 95; Resp 17; Pulse Ox 99% on R/A; es2 09:58 BP 143 / 67; Pulse Ox 100% on R/A; es2 08:30 Body Mass Index 31.87 (106.59 kg, 182.88 cm) ED Course: 08:23 Patient arrived in ED. 08:28 Yehuda Jacobo PA is PHCP. jmm 08:28 Miguelito Zhao MD is Attending Physician. jmm 08:30 Triage completed. ss 08:30 Arm band placed on left wrist. 08:31 Donya Christy, RN is Primary Nurse. es2 08:36 No provider procedures requiring assistance completed. es2 08:37 Patient has correct armband on for positive identification. Bed in low position. Call es2 light in reach. 08:39 Inserted saline lock: 20 gauge in right wrist, using aseptic technique. Blood collected.es2 08:46 Basic Metabolic Panel Sent. es2 08:46 CBC with Diff Sent. es2 08:46 Hepatic Function Sent. es2 08:46 Lipase Sent. es2 08:52 CT Stone Protocol In Process Unspecified. EDMS 09:20 Basic Metabolic Panel Sent. es2 09:20 Hepatic Function Sent. es2 09:20 Lipase Sent. es2 10:01 Daren Ruiz MD is Referral Physician. jmm 10:04 IV discontinued, intact, bleeding controlled, No redness/swelling at site. Pressure es2 dressing applied. Administered Medications: No medications were administered Outcome: 10:03 Discharge ordered by . pranay 10:04 Discharged to home via wheelchair. es2 10:04 Condition: stable 10:14 Discharge instructions given to patient, Instructed on discharge instructions, es2 medication usage, Demonstrated understanding of instructions, medications, Prescriptions given X 1. 10:15 Patient left the ED. es2 Signatures: Dispatcher [employer] EDWA Yehuda Jacobo PA PA jmm Smirch, Shelby, RN RN Kandi Dobson Elizabeth, RN RN es2 Corrections: (The following items were deleted from the chart) 08:37 08:30 PMHx: Diabetes - IDDM; es2 08:37 08:30 PMHx: High Cholesterol; es2
[2020-12-19 10:21] VITALS: TEMP 99.2
[2020-12-19 10:23] VITALS: BP 143/67; O2SAT 100
== END 2020-12-19 10:15 | disposition home or self-care (01) ==
LOC: ER 08:21
DX: R10.9 Unspecified abdominal pain (principal); I10 Essential (primary) hypertension; E11.9 Type 2 diabetes mellitus without complications; Z79.4 Long term (current) use of insulin; Z88.5 Allergy status to narcotic agent
CPT/HCPCS: 36415; 74176; 76377; 80048; 80076; 81003; 83690; 85025; 99284

== ENCOUNTER 2021-01-01 23:36 | Emergency (ER) | payer BC ==
[2021-01-02 00:13] LABS: Urine Blood Trace-intact (Negative); Urine Glucose Trace (Negative); Urine Protein 1+ (Negative); Urine Specific Gravity 1.015 (1.005-1.030)
[2021-01-02] MEDS ORDERED: NA CHLORIDE 0.9% 1,000 ML ONE (00:34)
[2021-01-02 00:37] LABS: Absolute Lymphocytes (CBC) 1.1 K/uL (0.7-4.9); Basophils % 0.6 % (0-1.3); Hematocrit 33.5 % (39.6-49.0); MPV 7.9 fL (7.6-11.3); RBC Red Blood Cell Count 3.68 M/uL (4.33-5.43)
[2021-01-02 00:47] LABS: Albumin 2.9 g/dL (3.4-5.0); Bilirubin Direct 0.2 mg/dL (0-0.2); Bilirubin Total 0.5 mg/dL (0.2-1.0); Potassium 4.4 mmol/L (3.5-5.1); Protein, Total 8.7 g/dL (6.4-8.2)
[2021-01-02] MEDS ORDERED: MORPHINE 4 MG/ML SYR ONE (01:46)
--- NOTE | 2021-01-02 01:46 | ER ---
Nurse's Notes [facility] Name: Westley Ma Age: 60 yrs Sex: Male : 1960 Arrival Date: 01/01/2021 Time: 23:38 Bed 25 Private MD: Diagnosis: Flank Pain Presentation: 01/01 23:44 Chief complaint: Patient states: c/o left flank pain that radiates to abdomen x 2 wks, sj1 was seen recently and dx with kidney stones. Coronavirus screen: Vaccine status: Patient reports receiving the 1st dose of the Covid vaccine. Ebola Screen: No symptoms or risks identified at this time. Initial Sepsis Screen: Does the patient meet any 2 criteria? No. Patient's initial sepsis screen is negative. Does the patient have a suspected source of infection? No. Patient's initial sepsis screen is negative. Risk Assessment: Do you want to hurt yourself or someone else? Patient reports no desire to harm self or others. Onset of symptoms was December 18, 2020. 23:44 Method Of Arrival: Ambulatory [facility] 23:44 Acuity: KWADWO 3 [facility] Triage Assessment: 23:47 General: Appears in no apparent distress. Behavior is calm, cooperative, appropriate [facility] for age. Pain: Complains of pain in left flank Pain radiates to abdomen Pain currently is 10 out of 10 on a pain scale. at worst was 10 out of 10 on a pain scale. level that patient reports is acceptable is 0 out of 10 on a pain scale. Quality of pain is described as sharp, Pain began 2 wks ago Is continuous. Neuro: Level of Consciousness is awake, alert, obeys commands, Oriented to person, place, time. GI: Reports lower abdominal pain, upper abdominal pain. : No signs and/or symptoms were reported regarding the genitourinary system. Musculoskeletal: Reports pain in back and abdomen. Historical: - Allergies: 23:47 Codeine; sj1 - Home Meds: 23:47 Altace 2.5 mg Oral cap 1 cap [Active]; metformin 1,000 mg oral tab 1 tab 2 times per sj1 day [Active]; Toujeo SoloStar 300 unit/mL (1.5 mL) subcutaneous inpn [Active]; - PMHx: 23:47 Diabetes - IDDM; Diabetes - NIDDM; High Cholesterol; Hypertension; sj1 - PSHx: 23:47 ankle surgery; sj1 - Immunization history:: Adult Immunizations up to date, Client reports receiving the 1st dose of the Covid vaccine. - Social history:: Smoking status: Patient denies any tobacco usage or history of. Patient/guardian denies using alcohol, street drugs. Screenin:49 Abuse screen: Denies threats or abuse. Denies injuries from another. Nutritional sj1 screening: No deficits noted. Tuberculosis screening: No symptoms or risk factors identified. Fall Risk None identified. Assessment: 23:52 General: Appears in no apparent distress. well groomed, Behavior is calm, cooperative. dc2 23:52 Musculoskeletal: No deficits noted. Pt ambulate to room and then bathroom with no dc2 difficulty. Urine sample obtained at this time. 01/02 00:05 Pain: Complains of pain in Left flank that radiates to lower abdomen. dc2 00:05 Neuro: No deficits noted. Level of Consciousness is awake, alert, obeys commands, dc2 Oriented to person, place, time, situation. Cardiovascular: No deficits noted. Denies chest pain, nausea, shortness of breath. Respiratory: No deficits noted. Airway is patent Breath sounds are clear bilaterally. GI: No deficits noted. No signs and/or symptoms were reported involving the gastrointestinal system. Patient currently denies nausea, vomiting. GI: No signs and/or symptoms were reported involving the gastrointestinal system. Bowel sounds present X 4 quads. Abdomen is tender to palpation in bilateral flanks to left abdomen Reports lower abdominal pain, Unable to sleep because of pain. : No deficits noted. No signs and/or symptoms were reported regarding the genitourinary system. Urine is clear. EENT: No deficits noted. No signs and/or symptoms were reported regarding the EENT system. Derm: No deficits noted. No signs and/or symptoms reported regarding the dermatologic system. Musculoskeletal: No deficits noted. Vital Signs: 01/01 23:44 BP 152 / 76; Pulse 96; Resp 18; Temp 97.5(O); Pulse Ox 100% ; Weight 97.52 kg (R); sj1 Height 6 ft. 0 in. (182.88 cm); Pain 10/10; 01/02 00:00 BP 152 / 76; Pulse 89; Resp 18; Pulse Ox 99% ; Pain 10/10; dc2 00:30 BP 149 / 75; Pulse 85; Resp 18; Pulse Ox 99% ; Pain 10/10; dc2 01:45 BP 137 / 75; Pulse 79; Resp 17; Pulse Ox 100% on R/A; Pain 3/10; dc2 01/01 23:44 Body Mass Index 29.16 (97.52 kg, 182.88 cm) sj1 ED Course: 01/01 23:38 Patient arrived in ED. bp1 23:47 Triage completed. sj1 23:47 Arm band placed on right wrist. sj1 23:49 Patient has correct armband on for positive identification. Bed in low position. Call sj1 light in reach. Side rails up X 1. 23:52 Yehuda Jacobo PA is PHCP. [facility] 23:52 Miguelito Zhao MD is Attending Physician. [facility] 23:52 Kimber Lorenzo RN is Primary Nurse. dc2 01/02 00:05 Inserted saline lock: 20 gauge in left hand, using aseptic technique. Blood collected. dc2 00:14 Basic Metabolic Panel Sent. dc2 00:14 CBC with Diff Sent. dc2 00:14 Hepatic Function Sent. dc2 00:14 Lipase Sent. dc2 00:[address] via stretcher. dc2 00:45 No provider procedures requiring assistance completed. dc2 00:50 CT Stone Protocol In Process Unspecified. EDMS 01:45 Daren Ruiz MD is Referral Physician. [facility] 02:00 IV discontinued, intact, bleeding controlled, No redness/swelling at site. Pressure dc2 dressing applied. Administered Medications: 00:55 Drug: NS 0.9% 1000 ml Route: IV; Rate: 1 bolus; Site: left hand; dc2 01:57 Follow up: IV Status: Completed infusion; IV Intake: 1000ml dc2 01:20 Drug: Zofran (Ondansetron) 4 mg Route: IVP; Site: left hand; dc2 01:56 Follow up: Response: Nausea is decreased dc2 01:21 Drug: morphine 4 mg Route: IVP; Infused Over: 1 mins; Site: left hand; dc2 01:56 Follow up: Response: Pain is decreased dc2 Intake: 01:57 IV: 1000ml; Total: 1000ml. dc2 Outcome: 01:45 Discharge ordered by . jmm 02:01 Discharged to home ambulatory. dc2 02:01 Condition: stable 02:01 Discharge instructions given to patient, Instructed on discharge instructions, follow up and referral plans. Demonstrated understanding of instructions, Prescriptions given X 2. 02:04 Patient left the ED. dc2 Signatures: Dispatcher [employer] EDMS Yehuda Jacobo PA PA jmm Paniauga, Brittany bp1 Charters, Denise, RN RN dc2 Malu Salgado RN RN sj1
--- NOTE | 2021-01-02 01:46 | EDPHYS ---
Physician Documentation [facility] Name: Westley Ma Age: 60 yrs Sex: Male : 1960 Arrival Date: 01/01/2021 Time: 23:38 Bed 25 Private MD: KENNEDY Physician Miguelito Zhao HPI: 01/02 00:52 This 60 yrs old Male presents to ER via Ambulatory with complaints of Back jmm Pain. 00:52 The patient presents with pain that is acute. jmm 00:52 Onset: The symptoms/episode began/occurred gradually. jmm 00:53 Associated signs and symptoms: Pertinent negatives: fever. Modifying factors: The jmm patient symptoms are alleviated by nothing, the patient symptoms are aggravated by any movement. The patient has experienced a previous episode, approximately 2 weeks ago. when diagnosed with previous kidney stone. Historical: - Allergies: 01/01 23:47 Codeine; sj1 - Home Meds: 23:47 Altace 2.5 mg Oral cap 1 cap [Active]; metformin 1,000 mg oral tab 1 tab 2 times per sj1 day [Active]; Toujeo SoloStar 300 unit/mL (1.5 mL) subcutaneous inpn [Active]; - PMHx: 23:47 Diabetes - IDDM; Diabetes - NIDDM; High Cholesterol; Hypertension; sj1 - PSHx: 23:47 ankle surgery; sj1 - Immunization history:: Adult Immunizations up to date, Client reports receiving the 1st dose of the Covid vaccine. - Social history:: Smoking status: Patient denies any tobacco usage or history of. Patient/guardian denies using alcohol, street drugs. ROS: 01/02 00:53 Constitutional: Negative for fever, chills, and weight loss, Cardiovascular: Negative jmm for chest pain, palpitations, and edema, Respiratory: Negative for shortness of breath, cough, wheezing, and pleuritic chest pain. Abdomen/GI: Positive for abdominal pain. All other systems are negative. Exam: 00:53 Constitutional: This is a well developed, well nourished patient who is awake, alert, jmm and in no acute distress. Head/Face: atraumatic. Eyes: EOMI, no conjunctival erythema appreciated ENT: Moist Mucus Membranes Neck: Trachea midline, Supple Chest/axilla: Normal chest wall appearance and motion. Respiratory: Normal respirations, no respiratory distress appreciated Abdomen/GI: Non distended, soft Back: Normal ROM 00:53 MS/ Extremity: Moves all extremities, no obvious deformities appreciated, no edema noted to the lower extremities Neuro: Awake and alert, normal gait Psych: Behavior is normal, Mood is normal, Patient is cooperative and pleasant 00:53 Back: pain, that is moderate, of the left flank. Vital Signs: 01/01 23:44 BP 152 / 76; Pulse 96; Resp 18; Temp 97.5(O); Pulse Ox 100% ; Weight 97.52 kg (R); sj1 Height 6 ft. 0 in. (182.88 cm); Pain 10/10; 01/02 00:00 BP 152 / 76; Pulse 89; Resp 18; Pulse Ox 99% ; Pain 10/10; dc2 00:30 BP 149 / 75; Pulse 85; Resp 18; Pulse Ox 99% ; Pain 10/10; dc2 01:45 BP 137 / 75; Pulse 79; Resp 17; Pulse Ox 100% on R/A; Pain 3/10; dc2 01/01 23:44 Body Mass Index 29.16 (97.52 kg, 182.88 cm) sj1 MDM: 00:04 Patient medically screened. [facility] 01:44 Data reviewed: vital signs, nurses notes. Counseling: I had a detailed discussion with pranay the patient and/or guardian regarding: the historical points, exam findings, and any diagnostic results supporting the discharge/admit diagnosis, lab results, radiology results, the need for outpatient follow up, to return to the emergency department if symptoms worsen or persist or if there are any questions or concerns that arise at home. ED course: Patient is alert and non toxic in appearance in the ED. Advised to follow up with urology for further evaluation. Patient understood and and agrees with the plan of care. . 01/01 23:52 Order name: Basic Metabolic Panel; Complete Time: 00:50 [facility] 01/01 23:52 Order name: CBC with Diff; Complete Time: 00:50 [facility] 01/01 23:52 Order name: Hepatic Function; Complete Time: 00:50 [facility] 01/01 23:52 Order name: Lipase; Complete Time: 00:50 [facility] 01/02 00:13 Order name: Urine Dipstick-Ancillary; Complete Time: 00:16 EDMS 01/02 00:33 Order name: CT Stone Protocol [facility] 01/01 23:52 Order name: IV Saline Lock; Complete Time: 00:14 [facility] 01/01 23:52 Order name: Labs collected and sent; Complete Time: 00:14 [facility] 01/01 23:52 Order name: Urine Dipstick-Ancillary (obtain specimen); Complete Time: 00:14 [facility] Administered Medications: 00:55 Drug: NS 0.9% 1000 ml Route: IV; Rate: 1 bolus; Site: left hand; dc2 01:57 Follow up: IV Status: Completed infusion; IV Intake: 1000ml dc2 01:20 Drug: Zofran (Ondansetron) 4 mg Route: IVP; Site: left hand; dc2 01:56 Follow up: Response: Nausea is decreased dc2 01:21 Drug: morphine 4 mg Route: IVP; Infused Over: 1 mins; Site: left hand; dc2 01:56 Follow up: Response: Pain is decreased dc2 Disposition: 08:03 Co-signature as Attending Physician, Miguelito Zhao MD I agree with the assessment and michael plan of care. Disposition Summary: 01/02/21 01:45 Discharge Ordered Location: Home [facility] Condition: Stable [facility] Diagnosis - Flank Pain [facility] Followup: [facility] - With: Daren Ruiz MD - When: 2 - 3 days - Reason: Recheck today's complaints, Continuance of care, Re-evaluation by your physician Discharge Instructions: - Discharge Summary Sheet [facility] - Flank Pain, Adult [facility] Forms: - Medication Reconciliation Form [facility] - Thank You Letter [facility] - Antibiotic Education [facility] - Prescription Opioid Use [facility] Prescriptions: - Cephalexin 500 mg Oral Capsule - take 1 capsule by ORAL route every 8 hours for 10 days; 30 capsule; Refills: 0, [facility] Product Selection Permitted - orphenadrine citrate 100 mg Oral Tablet Sustained Release - take 1 tablet by ORAL route 2 times per day As needed; 20 tablet; Refills: 0, [facility] Product Selection Permitted Signatures: Dispatcher [employer] Miguelito Wahl MD MD cha Mickail, Joel, PA PA [facility] Kimber Lorenzo RN RN dc2 Malu Salgado RN RN sj1
[2021-01-02] MEDS ORDERED: ONDANSETRON 4 MG/2 ML VIAL ONE (01:47)
[2021-01-02 05:00] VITALS: TEMP 97.5
[2021-01-02 05:04] VITALS: BP 137/75; O2SAT 100
--- NOTE | 2021-01-02 12:15 | RAD REPORT ---
EXAM DESCRIPTION: CT - Stone Protocol - 01/02/2021 7:21 am COMPARISON: CT abdomen and pelvis December 19, 2020 CLINICAL HISTORY: ABD PAIN TECHNIQUE: CT of the abdomen and pelvis was acquired without IV contrast material. Coronal and sag ittal reconstructions were obtained. Automated exposure control was utilized on this examination as a dose lowering technique. FINDINGS: Lung bases: Clear. *Evaluation of solid organs is limited due to lack of IV contrast. Liver: Normal. Gallbladder and biliary: Normal gallbladder. Unremarkable biliary tree. Pancreas: Normal. Spleen: Normal. Adrenal glands: Normal adrenal glands. Kidneys: Mild bilateral perinephric stranding. Stomach and Small Bowel: The stomach and small bowel are normal. Urinary bladder: Mild bladder wall thickening is present. Prostate/Male Urogenital: Normal. Colon and Appendix: The colon is unremarkable. No evidence of appendicitis. Retroperitoneum and lymph nodes: Normal. Vascular: Mild atherosclerosis. Peritoneal cavity: No ascites or free air. Musculoskeletal and soft tissues: Soft tissues are unremarkable. Lumbar spondylosis is present. No ag gressive bone lesions. No compression fracture. IMPRESSION: ABDOMEN/PELVIS IMPRESSION: Mild bladder wall thickening and mild bilateral perinephric stranding are nonspecific for urinary tra ct infection or recently passed stone. No other acute intra-abdominal abnormality. Electronically signed by: Kolby Gonsalez MD 01/02/2021 1:16 AM CDT Due to temporary technical issues with the PACS/Fluency reporting system, reports are being signed by the in house radiologists without review as a courtesy to insure prompt reporting. The interpreting radiologist is fully responsible for the content of the report.
== END 2021-01-02 02:04 | disposition home or self-care (01) ==
LOC: ER 23:36
DX: R10.9 Unspecified abdominal pain (principal); I10 Essential (primary) hypertension; E11.9 Type 2 diabetes mellitus without complications; Z79.4 Long term (current) use of insulin; Z88.5 Allergy status to narcotic agent
CPT/HCPCS: 96361; 85025; 80048; 36415; 80076; 81003; 83690; 76377; 74176; 96375; 96374; 99284; J7030; J2405

== ENCOUNTER 2021-01-06 06:44 | Emergency (ER) | payer BC ==
[2021-01-06 08:05] LABS: Urine Blood Negative (Negative); Urine Glucose 1+ (Negative); Urine Protein Trace (Negative)
[2021-01-06 08:13] LABS: Absolute Lymphocytes (CBC) 1.1 K/uL (0.7-4.9); Basophils % 0.8 % (0-1.3); Hematocrit 32.2 % (39.6-49.0); Lymphocytes % 12.7 % (15.3-44.8); RBC Red Blood Cell Count 3.54 M/uL (4.33-5.43)
[2021-01-06 08:19] LABS: Urine Bacteria NONE SEEN /HPF (NONE SEEN); Urine RBC <5 /HPF (NONE SEEN)
[2021-01-06 08:29] LABS: Albumin 2.7 g/dL (3.4-5.0); Bilirubin Direct 0.1 mg/dL (0-0.2); Bilirubin Total 0.4 mg/dL (0.2-1.0); Potassium 4.3 mmol/L (3.5-5.1); Protein, Total 8.6 g/dL (6.4-8.2)
[2021-01-06] MEDS ORDERED: MORPHINE 4 MG/ML SYR ONE (08:41)
[2021-01-06] MEDS ORDERED: NA CHLORIDE 0.9% 1,000 ML ONE (08:42)
[2021-01-06] MEDS ORDERED: ONDANSETRON 4 MG/2 ML VIAL ONE (08:42)
--- NOTE | 2021-01-06 08:42 | RAD REPORT ---
EXAM DESCRIPTION: CT - Abdomen Pelvis W Contrast - 01/06/2021 8:19 am CLINICAL HISTORY: FLANK PAIN COMPARISON: Stone Protocol dated 01/02/2021; Stone Protocol dated 12/19/2020; Chest For Pe Angio zofia ed 04/11/2017 TECHNIQUE: Biphasic, helical CT imaging of the abdomen and pelvis was performed following 100 ml non -ionic IV contrast. No oral contrast was administered. All CT scans are performed using dose optimization technique as appropriate and may include automated exposure control or mA/KV adjustment according to patient size. FINDINGS: Trace amount of pleural thickening seen posteromedial left lower lung field. Increased sof t tissue is present along each lateral margin of the T8 vertebral body. This is new from December 19 e xamination. Mass lesion would not develop over the short interval. This is probably pleural thickenin g or reactive pleural change. No cardiomegaly or pericardial effusion. The liver, spleen, and pancreas show no suspicious findings. Gallbladder and biliary tree are also wi thout suspicious finding. Renal function is symmetric. Cortical enhancement pattern is normal with no pyelonephritis or suspici ous renal parenchymal finding. There is no hydronephrosis identifiable. No obstructing or nonobstruct ing calculi seen. Patient has nonspecific perinephric stranding is symmetric and similar to prior qi ging. No clearly abnormal enhancement of the ureteral hodge. Urinary bladder is only partially filled with accentuates wall thickness. Urinary bladder hodge are similar to the January 02 examination. No new prostate or seminal vesicle finding. Urinary bladder wall does not appear to abnormally enhance. There are no bladder calculi or other intraluminal abnormalities. No adrenal abnormalities. No dilated bowel loops or bowel wall thickening. No appendicitis findings. Moderate stool volume pres ent. A few mildly prominent small bowel loops are present probably normal variants of peristalsis rat her than enteritis. No free air, free fluid or inflammatory stranding. No hernia, mass or bulky lymp hadenopathy. No acute vertebral finding. Patient has prominent for age endplate degenerative spurring changes L2-L 5 as well is advanced endplate spurring changes in the lower thoracic spine. IMPRESSION: No pyelonephritis, calculi or other acute abnormality identifiable. Urinary bladder wall is accentuated by contracted state. No clearly pathologic wall thickening, bladd er wall mass or bladder wall enhancement. Increased soft tissue thickening along the lateral margins of the normal-appearing T8 vertebral body, left greater than right. This is new since the December 19 imaging. This may be reactive pleural thic kening from pleuritis. Mass lesion would not be expected to develop over the short interval. Correlat ion is needed with any pain symptoms in the T8 region. This can be re-evaluated with CT imaging in 3- 4 months.
[2021-01-06] MEDS ORDERED: KETOROLAC 30 MG/ML INJ ONE (11:09)
--- NOTE | 2021-01-06 11:44 | ER ---
Nurse's Notes [facility] Name: Westley Ma Age: 60 yrs Sex: Male : 1960 Arrival Date: 01/06/2021 Time: 06:48 Bed 5 Private MD: Diagnosis: Dorsalgia, unspecified-Thoracic;Pleuritis Presentation: 01/06 07:16 Chief complaint: Patient states: Intermittent L flank pain that began 3 weeks ago. Pt ss reports this will be his 3rd ER visit and has seen urology as they believed it may be kidney stones. Coronavirus screen: Client denies travel out of the [place] in the last 14 days. Ebola Screen: Patient denies exposure to infectious person. Patient denies travel to an Ebola-affected area in the 21 days before illness onset. Initial Sepsis Screen: Does the patient meet any 2 criteria? No. Patient's initial sepsis screen is negative. Does the patient have a suspected source of infection? No. Patient's initial sepsis screen is negative. Risk Assessment: Do you want to hurt yourself or someone else? Patient reports no desire to harm self or others. Onset of symptoms was December 16, 2020. 07:16 Method Of Arrival: Ambulatory ss 07:16 Acuity: KWADWO 3 ss Triage Assessment: 07:20 General: Appears distressed, uncomfortable, Behavior is cooperative, appropriate for bp age, anxious. Pain: Complains of pain in left flank. EENT: No deficits noted. Neuro: No deficits noted. Cardiovascular: No deficits noted. Respiratory: No deficits noted. GI: No signs and/or symptoms were reported involving the gastrointestinal system. : Reports pain in left flank(s). Derm: No deficits noted. Musculoskeletal: Circulation, motion, and sensation intact. Range of motion: intact in all extremities. Historical: - Allergies: 07:19 Codeine; ss - PMHx: 07:19 High Cholesterol; Hypertension; Diabetes mellitus; ss - PSHx: 07:19 ankle surgery; ss - Immunization history:: Client reports receiving the 1st dose of the Covid vaccine. - Social history:: Smoking status: Patient denies any tobacco usage or history of. Patient/guardian denies using alcohol. Screenin:20 Abuse screen: Denies threats or abuse. Denies injuries from another. Nutritional bp screening: No deficits noted. Tuberculosis screening: No symptoms or risk factors identified. Fall Risk None identified. Assessment: 07:20 General: SEE TRIAGE NOTE. bp 09:00 Reassessment: Patient and/or family updated on plan of care and expected duration. Pain bp level reassessed. Patient is alert, oriented x 3, equal unlabored respirations, skin warm/dry/pink. Neuro: Level of Consciousness is awake, alert, obeys commands, Oriented to Appropriate for age. 10:13 Reassessment: Patient is alert, oriented x 3, equal unlabored respirations, skin aa5 warm/dry/pink. states no complaints at this time. . 11:29 Reassessment: No changes from previously documented assessment. Patient and/or family bp updated on plan of care and expected duration. Pain level reassessed. ALL CURRENT ORDERS COMPLETED. 12:11 Reassessment: PT D/C HOME AMBULATORY WITH FAMILY, DX WITH PLEURISY. bp Vital Signs: 07:16 BP 146 / 68; Pulse 86; Resp 16; Pulse Ox 100% on R/A; Weight 97.52 kg; Height 6 ft. 0 ss in. (182.88 cm); Pain 10/10; 08:00 BP 142 / 72; Pulse 83; Resp 17; Pulse Ox 100% ; bp 09:00 BP 159 / 70; Pulse 77; Resp 16; Pulse Ox 100% ; bp 10:00 BP 144 / 76; Pulse 87; Resp 16; Pulse Ox 100% ; bp 11:29 BP 132 / 72; Pulse 80; Resp 16; Pulse Ox 99% ; bp 07:16 Body Mass Index 29.16 (97.52 kg, 182.88 cm) ED Course: 06:48 Patient arrived in ED. bp1 07:11 Garret Richards, YOSEF is Primary Nurse. bp 07:17 Connor Greene NP is PHCP. pm1 07:17 Ghassan Merchant MD is Attending Physician. pm1 07:19 Triage completed. ss 07:19 Arm band placed on right wrist. ss 07:20 Patient has correct armband on for positive identification. Bed in low position. Call bp light in reach. Side rails up X2. 08:08 Inserted saline lock: 20 gauge in right antecubital area, using aseptic technique. bp Blood collected. 08:19 CT Abd/Pelvis - IV Contrast Only In Process Unspecified. EDMS 12:11 No provider procedures requiring assistance completed. IV discontinued, intact, bp bleeding controlled, No redness/swelling at site. Pressure dressing applied. Administered Medications: 08:00 Drug: NS 0.9% 1000 ml Route: IV; Rate: 1000 ml; Site: right antecubital; bp 12:13 Follow up: IV Status: Completed infusion; IV Intake: 1000ml bp 08:00 Drug: morphine 4 mg Route: IVP; Site: right antecubital; bp 12:13 Follow up: Response: No adverse reaction bp 08:00 Drug: Zofran (Ondansetron) 4 mg Route: IVP; Site: right antecubital; bp 12:13 Follow up: Response: No adverse reaction bp 10:13 Drug: Ketorolac 30 mg Route: IVP; Site: right antecubital; aa5 12:14 Follow up: Response: No adverse reaction bp Intake: 12:13 IV: 1000ml; Total: 1000ml. bp Outcome: 11:43 Discharge ordered by MD. pm1 12:09 Patient left the ED. aa5 12:11 Discharged to home ambulatory, with family. bp 12:11 Condition: stable 12:11 Discharge instructions given to patient, Instructed on discharge instructions, follow up and referral plans. medication usage, Demonstrated understanding of instructions, follow-up care, medications, Prescriptions given X 1. Signatures: Dispatcher [employer] EDMS Sonia Paz RN RN aa5 Taylor Escalona RN RN ss Connor Greene, EXPEDITER SERVICE ORDER EXPEDITER SERVICE ORDER pm1 Garret Richards RN RN bp Shayla Osuna bp1 Corrections: (The following items were deleted from the chart) 07:20 07:19 PMHx: Diabetes - IDDM; ss ss 07:20 07:19 PMHx: Diabetes - NIDDM; ss ss
--- NOTE | 2021-01-06 11:44 | EDPHYS ---
Physician Documentation [facility] Name: Westley Ma Age: 60 yrs Sex: Male : 1960 Arrival Date: 01/06/2021 Time: 06:48 Bed 5 Private MD: ED Physician Ghassan Merchant HPI: 01/06 07:26 This 60 yrs old Male presents to ER via Ambulatory with complaints of Back pm1 Pain. 07:26 The patient presents with pain that is acute, with no known mechanism of injury. The pm1 symptoms are located in the left mid back. Onset: The symptoms/episode began/occurred 3 week(s) ago. The pain does not radiate. Associated signs and symptoms: Pertinent positives: LLQ abdominal pain, Pertinent negatives: dysuria, fever, headache, numbness, tingling, weakness. The problem was sustained from unknown cause. Modifying factors: The patient symptoms are alleviated by nothing, the patient symptoms are aggravated by nothing. Severity of symptoms: in the emergency department the symptoms are actually worse. The patient has been recently seen at the [facility] Emergency Department, for similar complaints labs were performed, CT scan was performed, was given a prescription for antibiotics, 01/02/2021. Historical: - Allergies: 07:19 Codeine; ss - PMHx: 07:19 High Cholesterol; Hypertension; Diabetes mellitus; ss - PSHx: 07:19 ankle surgery; ss - Immunization history:: Client reports receiving the 1st dose of the Covid vaccine. - Social history:: Smoking status: Patient denies any tobacco usage or history of. Patient/guardian denies using alcohol. ROS: 07:26 Constitutional: Negative for fever, chills, and weight loss, Cardiovascular: Negative pm1 for chest pain, palpitations, and edema, Respiratory: Negative for shortness of breath, cough, wheezing, and pleuritic chest pain, Abdomen/GI: Negative for abdominal pain, nausea, vomiting, diarrhea, and constipation. 07:26 MS/Extremity: Negative for injury and deformity, Skin: Negative for injury, rash, and discoloration. 07:26 Neuro: Negative for headache, weakness, numbness, tingling, and seizure. 07:26 Back: Positive for of the left mid back, Pain. 07:26 All other systems are negative. pm1 Exam: 07:26 Constitutional: This is a well developed, well nourished patient who is awake, alert, pm1 and in no acute distress. 07:26 Head/Face: Normocephalic, atraumatic. Respiratory: Lungs have equal breath sounds bilaterally, clear to auscultation and percussion. No rales, rhonchi or wheezes noted. No increased work of breathing, no retractions or nasal flaring. Abdomen/GI: Soft, non-tender, with normal bowel sounds. No distension or tympany. No guarding or rebound. No evidence of tenderness throughout. 07:26 Skin: Warm, dry with normal turgor. Normal color with no rashes, no lesions, and no evidence of cellulitis. MS/ Extremity: Pulses equal, no cyanosis. Neurovascular intact. Full, normal range of motion. 07:26 Eyes: Exam is negative for acute changes, Periorbital structures: appear normal, Extraocular movements: no acute changes. 07:26 ENT: Exam is negative for acute changes, Mouth: no acute changes, Lips: normal, moist, Oral mucosa: normal, pink and intact, moist. 07:26 Cardiovascular: Exam negative for acute changes, Rate: normal, Rhythm: regular, Pulses: no pulse deficits are appreciated, Edema: is not appreciated. 07:26 Abdomen/GI: Exam negative for acute changes, Inspection: abdomen appears normal, Palpation: abdomen is soft and non-tender, in all quadrants. 07:26 Back: pain, that is mild, of the left mid back, vertebral tenderness, is not appreciated. 07:26 Neuro: Exam negative for acute changes, Orientation: is normal, Mentation: is normal, Motor: is normal, moves all fours, Sensation: is normal, no obvious gross deficits, Gait: is steady, at a normal pace, without difficulty. Vital Signs: 07:16 BP 146 / 68; Pulse 86; Resp 16; Pulse Ox 100% on R/A; Weight 97.52 kg; Height 6 ft. 0 ss in. (182.88 cm); Pain 10/10; 08:00 BP 142 / 72; Pulse 83; Resp 17; Pulse Ox 100% ; bp 09:00 BP 159 / 70; Pulse 77; Resp 16; Pulse Ox 100% ; bp 10:00 BP 144 / 76; Pulse 87; Resp 16; Pulse Ox 100% ; bp 11:29 BP 132 / 72; Pulse 80; Resp 16; Pulse Ox 99% ; bp 07:16 Body Mass Index 29.16 (97.52 kg, 182.88 cm) ss MDM: 07:19 Patient medically screened. pm1 11:26 Physician consultation: Paxton Bueno MD was called at 10:01, was contacted at 11:14, pm1 regarding patient's condition, radiology reports, No indication of Spinal TB, Paraspinal Abscess. Discussed follow up period with Dr. Bueno and recommended that patient can follow up sooner than 3-4 month period with a MRI of thoracic spine with contrast. Discussed CT findings and discussion with patient. Patient reports onset of a cough with his back pain therefore pleuritis is a possible differential. 11:26 Differential diagnosis: Hydronephrosis Pyelonephritis Ureterolithiasis Spinal TB, pm1 Paraspinal abscess, Musculoskeletal pain, pleuritis. 11:37 Data reviewed: vital signs. Data interpreted: Pulse oximetry: on room air is 99 %. pm1 Interpretation: normal. Counseling: I had a detailed discussion with the patient and/or guardian regarding: the historical points, exam findings, and any diagnostic results supporting the discharge/admit diagnosis, lab results, radiology results, the need for outpatient follow up, a family practitioner, Outpatient MRI with contrast of T-spine, to return to the emergency department if symptoms worsen or persist or if there are any questions or concerns that arise at home. 01/06 07:25 Order name: Basic Metabolic Panel; Complete Time: 09:11 pm1 01/06 07:25 Order name: CBC with Diff; Complete Time: 09:11 pm1 01/06 07:25 Order name: Hepatic Function; Complete Time: 09:11 pm1 01/06 07:25 Order name: Lipase; Complete Time: 09:11 pm1 01/06 07:25 Order name: Urine Microscopic Only; Complete Time: 09:11 pm1 01/06 08:05 Order name: Urine Dipstick-Ancillary; Complete Time: 09:11 EDMS 01/06 07:25 Order name: IV Saline Lock; Complete Time: 08:11 pm1 01/06 07:25 Order name: Labs collected and sent; Complete Time: 08:11 pm1 01/06 07:25 Order name: Urine Dipstick-Ancillary (obtain specimen); Complete Time: 08:09 pm1 01/06 07:25 Order name: CT Abd/Pelvis - IV Contrast Only; Complete Time: 09:11 pm1 Administered Medications: 08:00 Drug: NS 0.9% 1000 ml Route: IV; Rate: 1000 ml; Site: right antecubital; bp 12:13 Follow up: IV Status: Completed infusion; IV Intake: 1000ml bp 08:00 Drug: morphine 4 mg Route: IVP; Site: right antecubital; bp 12:13 Follow up: Response: No adverse reaction bp 08:00 Drug: Zofran (Ondansetron) 4 mg Route: IVP; Site: right antecubital; bp 12:13 Follow up: Response: No adverse reaction bp 10:13 Drug: Ketorolac 30 mg Route: IVP; Site: right antecubital; aa5 12:14 Follow up: Response: No adverse reaction bp Disposition: 14:00 Co-signature as Attending Physician, Ghassan Merchant MD I agree with the assessment and kdr plan of care. Disposition Summary: 01/06/21 11:43 Discharge Ordered Location: Home pm1 Problem: new pm1 Symptoms: have improved pm1 Condition: Stable pm1 Diagnosis - Dorsalgia, unspecified - Thoracic(01/06/21 11:50) pm1 - Pleuritis pm1 Followup: pm1 - With: Emergency Department - When: As needed - Reason: Worsening of condition Followup: pm1 - With: Private Physician - When: 2 - 3 days - Reason: Recheck today's complaints, Continuance of care, Re-evaluation by your physician Discharge Instructions: - Discharge Summary Sheet pm1 - Acute Back Pain, Adult pm1 - Pleurisy pm1 Forms: - Medication Reconciliation Form pm1 - Thank You Letter pm1 - Antibiotic Education pm1 - Prescription Opioid Use pm1 Prescriptions: - Diclofenac Sodium 75 mg Oral tablet,delayed release (DR/EC) - take 1 tablet by ORAL route 2 times per day As needed; 30 tablet; Refills: 0, pm1 Product Selection Permitted Signatures: Dispatcher [employer] EDGhassan Hancock MD MD kdr Calderon, Audri, RN RN aa5 Taylor Escalona RN RN ss Connor Greene, TANNER STAIN DIPPER pm1 Garret [place] RN RN bp Corrections: (The following items were deleted from the chart) 07: PMHx: Diabetes - IDDM; [facility] 07:20 07:19 PMHx: Diabetes - NIDDM; [facility] 11:50 11:43 Dorsalgia, unspecified pm1 pm1
[2021-01-06 12:26] VITALS: BP 132/72; O2SAT 99
== END 2021-01-06 12:09 | disposition home or self-care (01) ==
LOC: ER 06:44
DX: R09.1 Pleurisy (principal); I10 Essential (primary) hypertension; Z88.5 Allergy status to narcotic agent
CPT/HCPCS: 96361; 85025; 80048; 36415; 82565; 80076; 83690; 74177; 96375; 96374; 99284; Q9967; J7030; J2405; 81003; 81015

== ENCOUNTER 2021-04-17 08:48 | Inpatient (IN) | payer BC ==
--- OUTSIDE RECORDS SUMMARY | 2021-04-17 08:51 | XMS REPORT | Continuity of Care Document ---
:1960 Author Organization [facility] [place] t Address [facility] [place] [address] Care Team Providers Name Role Phone Blayne TRAN, Ethan Ceja Primary Care Physician [phone] Jenny TRAN Attending Clinician Fidel Caraballo MD Attending Clinician Doctor Unassigned, Name Attending Clinician Unavailable Tawnya Francisco MD Attending Clinician Payers Payer Name Policy Type Policy Number Effective Date Expiration Date S ource Problems Condition Condition Condition Status Onset Resolution Last Treating Co mments Source Name Details Category Date Date Treatment Clinician Date PAD PAD Disease Active 2020-03 Univers (periphera (periphera 2-13 it y of l artery l artery 00:00: [place] disease) disease) 00 Medica l Branch Chronic Chronic Disease Active 2020-03 Univers osteomyeli osteomyeli 1-14 it y of tis of tis of 00:00: [place] left foot left foot 00 Medi edouard Branch Hyponatrem Hyponatrem Disease Active 2020-03 U mitulers ia ia 1-14 ity of 00:00: [place] 00 Medical Branch Diabetes Diabetes Disease Active 2020-03 Unive rs mellitus mellitus 1-13 ity of with with 00:00: [place] complicati complicati 00 Me dical on on Branch 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 2021-1 U nivers epidural epidural 1-13 ity of space of space of 00:00: [place] thoracic thoracic 00 Medica l spine spine Branch Osteomyeli Osteomyeli Disease Active 2020-03 U nivers tis of tis of 1-13 ity of thoracic thoracic 00:00: [place] spine spine 00 Medical Branch E44.0 E44.0 Disease Active 2020-03 Univers Moderate Moderate 1-11 ity of protein protein 00:00: [place] calorie calorie 00 Medical malnutriti malnutriti Br anch on on Exudative Exudative Disease Active 2020-03 Uni vers pleural pleural 1-10 ity of effusion effusion 00:00: [place] 00 Medical Branch Intractabl Intractabl Disease Active 2020-03 U nivers e back e back 1-10 ity of pain pain 00:00: [place] 00 Medical Branch Osteomyeli Osteomyeli Disease Active 2020-03 Overview : Univers tis of tis of 03-17 Formattin ity of metatarsal metatarsal 00:00: g of this [place] 00 note Medical might be Branch different from the original. Added automatic ally from request for surgery [id number] Allergies, Adverse Reactions, Alerts Allergy Allergy Status Severity Reaction(s) Onset Inactive Treating Comm ents Source Name Type Date Date Clinician Malachi Aponte Active Unknown - 2020-03 Tachycard U nivers ty to See comments 03-17 ia and ity of adverse 00:00: nightmare [place] reaction 00 s Medical s Branch Social History Social Habit Start Date Stop Date Quantity Comments Source Exposure to Not sure [place] of SARS-CoV-2 [place] Medical (event) Branch History of Cigarette Smoker Universi ty of tobacco use [facility] Tobacco use and 2017-04-11 2017-04-11 Never used Universit y of exposure 00:00:00 00:00:00 [facility] Sex Ass[birth year] At [birth year] Universit y of 00:00:00 00:00:00 [facility] Smoking Status Start Date Stop Date Source Former smoker 2017-04-11 00:00:00 2017-04-11 00:00:00 Universi ty of [facility] Medications Ordered Filled Start Stop Current Ordering Indication Dosage Frequency Signature Comments Components Source Medication Medication Date Date Medication? Clinician (SIG) Name Name doxycycline 2021- Yes [id number] 100mg Take 1 Univers hyclate 100 03-18 capsule by i ty of mg capsule 00:00: 04:59 mouth [place] 00 :00 every 12 Medical (twelve) Branch hours for 70 days. aspirin 2020-03 Yes 81mg Take 81 mg Univ ers (ASPIR-81) 2-13 by mouth ity o f 81 mg EC 08:20: daily. [address] aspirin 2020-03 Yes 81mg Take 81 mg Univ ers (ASPIR-81) 2-13 by mouth ity o f 81 mg EC 08:20: daily. [place] tablet [address] [place] [address] aspirin 2020-03 Yes 81mg Take 81 mg Univ ers (ASPIR-81) 2-13 by mouth ity o f 81 mg EC 08:20: daily. [address] metFORMIN 2020-03 Yes 1000mg Take 1,000 Univers 1,000 mg 2-13 mg by ity of tablet 08:18: mouth [address] [place] [address] ([facility]) Medical times [place] daily with meals. RAMIPRIL 2020-03 Yes 10mg Take 10 mg Uni vers (ALTACE 2-13 by mouth ity of ORAL) 08:18: daily. [address] metFORMIN 2020-03 Yes 1000mg Take 1,000 Univers 1,000 mg 2-13 mg by ity of tablet 08:18: mouth 2 [place] [address] ([facility]) Medical times [place] daily with meals. RAMIPRIL 2020-03 Yes 10mg Take 10 mg Uni vers (ALTACE 2-13 by mouth ity of ORAL) 08:18: daily. [address] metFORMIN 2020-03 Yes 1000mg Take 1,000 Univers 1,000 mg 2-13 mg by ity of tablet 08:18: mouth 2 [place] [address] ([facility]) Medical times [place] daily with meals. RAMIPRIL 2020-03 Yes 10mg Take 10 mg Uni vers (ALTACE 2-13 by mouth ity of ORAL) 08:18: daily. [address] insulin 2020-03 Yes [id number] 30U inject 30 U nivers glargine 1-20 Units ity of U-300 conc 00:00: [place] (TOUJEO MAX 00 skin 2 Medica l U-300 (two) Branch SOLOSTAR) times 300 unit/mL daily. (3 mL) InPn insulin 2020-03 Yes [id number] 30U inject 30 U nivers glargine 1-20 Units ity of U-300 conc 00:00: [place] (TOUJEO MAX 00 skin 2 Medica l U-300 (two) Branch [facility]) times 300 unit/mL daily. (3 mL) In insulin 2020-03 Yes [id number] 30U inject 30 U nivers glargine 1-20 Units ity of U-300 conc 00:00: [place] (TOUJEO MAX 00 skin 2 Medica l U-300 (two) Branch [facility]) times 300 unit/mL daily. (3 mL) In rifAMPin 2020-03- Yes [id number] 300mg Take 1 Univers 300 mg -20 - capsule by ity of capsule 00:00: 05:59 mouth 2 [place] 00 :00 (two) Medical times [place] daily for 90 days. DULoxetine 2020-03- Yes [id number] 60mg Take 1 Univers 60 mg -04-27 capsule by ity of capsule 00:00: 05:59 mouth [place] 00 :00 daily for Medical 90 days. Branch rifAMPin 2020-03- Yes [id number] 300mg Take 1 Univers 300 mg -04-27 capsule by ity of capsule 00:00: 05:59 mouth 2 [place] 00 :00 (two) Medical times Branch daily for 90 days. DULoxetine 2020-03- Yes [id number] 60mg Take 1 Univers 60 mg -20 - capsule by ity of capsule 00:00: 05:59 mouth [place] 00 :00 daily for Medical 90 days. Branch rifAMPin 2020-03- Yes [id number] 300mg Take 1 Univers 300 mg -20 04-27 capsule by ity of capsule 00:00: 05:59 mouth 2 [place] 00 :00 (two) Medical times [place] daily for 90 days. DULoxetine 2020-03- Yes [id number] 60mg Take 1 Univers 60 mg -20 - capsule by ity of capsule 00:00: 05:59 mouth [place] 00 :00 daily for Medical 90 days. Branch doxycycline 2020-03- No [id number] 100mg Take 1 Univers hyclate 100 -28 03-10 capsule by i ty of mg capsule 00:00: 00:00 mouth [place] 00 :00 every 12 Medical (twelve) Branch hours for 90 days. clopidogreL 2020-03 Yes 1{tbl} 1 tablet Univers 75 mg 0-06 daily. ity of tablet 00:00: [place] [facility] clopidogreL 2020-03 Yes 1{tbl} 1 tablet Univers 75 mg 0-06 daily. ity of tablet 00:00: [place] [facility] Branch clopidogreL 2020-03 Yes 1{tbl} 1 tablet Univers 75 mg 0-06 daily. ity of tablet 00:00: [place] Medical Branch Immunizations Ordered Filled Immunization Date Status Comments [facility] e Immunization Name Name Influenza Virus 2021-01-26 Completed Universit y of Vaccine Quad IM, 00:00:00 [place] Me dical Preserv and ABX Branch Free 6 MO-64 YRS Influenza Virus 2021-01-26 Completed Universit y of Vaccine Quad IM, 00:00:00 [place] Me dical Preserv and ABX Branch Free 6 MO-64 YRS Influenza Virus 2021-01-26 Completed Universit y of Vaccine Quad IM, 00:00:00 [facility] dical Preserv and ABX Branch Free 6 MO-64 YRS Vital Signs Vital Name Observation Time Observation Value Comments Source Systolic blood 2021-03-18 19:01:00 142 mm[Hg] Univer sity of pressure [facility] Diastolic blood 2021-03-18 19:01:00 82 mm[Hg] Unive rsity of pressure [facility] Heart rate 2021-03-18 19:01:00 97 /min [facility] Body temperature 2021-03-18 19:00:00 36.67 [facility] 2021-03-18 19:00:00 18 /min [facility] Body height 2021-03-18 19:00:00 182.9 cm [facility] Body weight 2021-03-18 19:00:00 96.163 kg [facility] BMI 2021-03-18 19:00:00 28.75 kg/m2 [facility] Procedures Procedure Date / Time Performing Clinician Source Performed AUTHORIZATION FOR 2021-03-04 06:01:00 Doctor Unassigned, No [facility] Name Medical Branch Encounters Start End Encounter Admission Attending Care Care Encounter Source Date/Time Date/Time Type Type Clinicians Facility Department ID 2021-04-[address] [facility] [id number] 14[facility]05:47 [id number] 2021-03-18 2021-03-18 Office Yadiel Alvarado [facility] [id number] Univers 13:00:00 13:30:00 Visit Neno Caraballo [facility] [id number] ity of CL[place]ICS [id number] [id number] [facility] 089 Branch 2021-03-04 2021-03-04 Orders Doctor NATALIE [id number] Univers 00:00:00 00:00:00 Only Unassigned, SHEEBA [id number] ity of [place] [facility] [id number] Philipp as [id number] [facility] 009 Branch 2021-02-19 2021-02-19 [facility] [id number] Univers 00:00:00 00:00:00 [facility] [id number] ity of [place] [id number] [id number] [facility] 205 Branch 2021-01-07 2021-01-[address] [id number] 2021-01-03 2021-01-[address] [facility] [id number] 2021-01-02 2021-01-[address] [facility] [id number] Results This patient has no known results.
[2021-04-17] MEDS ORDERED: MORPHINE 4 MG/ML SYR ONE (09:17)
[2021-04-17] MEDS ORDERED: NA CHLORIDE 0.9% 1,000 ML ONE (09:17)
[2021-04-17] MEDS ORDERED: ONDANSETRON 4 MG/2 ML VIAL ONE (09:17)
--- NOTE | 2021-04-17 09:17 | ER ---
Nurse's Notes [facility] Name: Westley Ma Age: 61 yrs Sex: Male : 1960 Arrival Date: 04/17/2021 Time: 08:50 Bed 23 Private MD: Ethan Chatterjee R; Saul Martin Diagnosis: Gangrene, not elsewhere classified-left foot;Type 1 diabetes mellitus with hyperglycemia;Essential (primary) hypertension Presentation: 04/17 08:59 Chief complaint: Patient states: States wound on Left toes; sees wound healing and Dr shahnaz Martin; states 'gangrene on left toes'. Coronavirus screen: Vaccine status: Patient reports receiving the 1st dose of the Covid vaccine. Client denies travel out of the [place] in the last 14 days. Ebola Screen: Patient negative for fever greater than or equal to 101.5 degrees Fahrenheit, and additional compatible Ebola Virus Disease symptoms. Initial Sepsis Screen: Does the patient meet any 2 criteria? HR > 90 bpm. Does the patient have a suspected source of infection? No. Patient's initial sepsis screen is negative. Risk Assessment: Do you want to hurt yourself or someone else? Patient reports no desire to harm self or others. Onset of symptoms was March 2021. 08:59 Method Of Arrival: Ambulatory kit [facility] 08:59 Acuity: KWADWO 3 vg1 Triage Assessment: 09:01 General: Appears comfortable, Behavior is calm, cooperative. Pain: Complains of pain in vg1 left foot. Historical: - Allergies: 09:01 Codeine; vg1 - Home Meds: 09:01 metformin 1,000 mg Oral tab 1 tab 2 times per day [Active]; Toujeo SoloStar 300 unit/mL vg1 (1.5 mL) subcutaneous inpn [Active]; - PMHx: 09:01 diabetes mellitus; High Cholesterol; Hypertension; vg1 - PSHx: 09:01 ankle surgery; vg1 - Immunization history:: Client reports receiving the 1st dose of the Covid vaccine. - Social history:: Smoking status: Patient denies any tobacco usage or history of. Screenin:03 Abuse screen: Denies threats or abuse. Denies injuries from another. Nutritional jh5 screening: No deficits noted. Tuberculosis screening: No symptoms or risk factors identified. Fall Risk None identified. Vital Signs: 08:59 BP 159 / 83; Pulse 106; Resp 17; Temp 98.8; Pulse Ox 100% ; Weight 97.07 kg; Height 6 vg1 ft. 0 in. (182.88 cm); Pain 5/10; 08:59 Body Mass Index 29.02 (97.07 kg, 182.88 cm) 1 ED Course: 08:50 Patient arrived in ED. as 08:50 Ethan Chatterjee MD is Private Physician. as 08:51 Saul Martin MD is Private Physician. as 09:00 Miguelito Zhao MD is Attending Physician. [facility] 09:01 Triage completed. 1 09:01 Arm band placed on. 1 09:03 Annalisa Valles, YOSEF is Primary Nurse. 5 09:03 Patient has correct armband on for positive identification. 5 09:03 No provider procedures requiring assistance completed. 5 09:15 Cirilo Dimas is Hospitalizing Provider. [facility] 09:21 COVID swab sent to lab. 7 09:23 XRAY Chest (1 view) In Process Unspecified. EDNC 09:26 SARS-COV-2 RT PCR (Document "Date of Onset" if Symptomatic) Sent. jh5 09:26 Basic Metabolic Panel Sent. jh5 09:26 CBC with Diff Sent. 5 Administered Medications: 09:26 Drug: NS 0.9% 1000 ml Route: IV; Rate: 125 ml/hr; Site: right antecubital; [facility] 14:25 Follow up: IV Status: Infusion continued upon admission jl7 09:26 Drug: morphine 4 mg Route: IVP; Site: right antecubital; [facility] 09:45 Follow up: Response: No adverse reaction; Pain is decreased jl 09:27 Drug: Zofran (Ondansetron) 4 mg Route: IVP; Site: right antecubital; [facility] 14:25 Follow up: Response: No adverse reaction [facility] Outcome: 09:16 Decision to Hospitalize by Provider. michael 15:02 Patient left the ED. [facility] Signatures: Dispatcher [employer] EDNC Miguelito Zhao MD MD cha Martinez, Amelia as Leal, Jahala, RN RN 7 Katharina Arshad RN RN kit [facility] Annalisa Valles RN RN [facility]
--- NOTE | 2021-04-17 09:17 | EDPHYS ---
Physician Documentation [facility] Name: Westley Ma Age: 61 yrs Sex: Male : 1960 Arrival Date: 04/17/2021 Time: 08:50 Bed 23 Private MD: Ethan Chatterjee R; Martinez, Henry ED Physician Miguelito Zhao HPI: 04/17 09:10 This 61 yrs old Male presents to ER via Ambulatory with complaints of Wound michael Check. 09:10 Patient presents to ED for recheck of: cellulitis. The affected area is on the . michael Previous treatment: Previous recheck: was rechecked on April 17, 2021. Progress: The patient reports decreased drainage, pain, redness, swelling. The patient has experienced similar episodes in the past, multiple times. Historical: - Allergies: 09:01 Codeine; vg1 - Home Meds: 09:01 metformin 1,000 mg Oral tab 1 tab 2 times per day [Active]; Toujeo SoloStar 300 unit/mL vg1 (1.5 mL) subcutaneous inpn [Active]; - PMHx: 09:01 diabetes mellitus; High Cholesterol; Hypertension; vg1 - PSHx: 09:01 ankle surgery; vg1 - Immunization history:: Client reports receiving the 1st dose of the Covid vaccine. - Social history:: Smoking status: Patient denies any tobacco usage or history of. ROS: 09:11 Constitutional: Negative for fever, chills, and weight loss, Eyes: Negative for injury, michael pain, redness, and discharge, ENT: Negative for injury, pain, and discharge, Neck: Negative for injury, pain, and swelling, Cardiovascular: Negative for chest pain, palpitations, and edema, Respiratory: Negative for shortness of breath, cough, wheezing, and pleuritic chest pain, Abdomen/GI: Negative for abdominal pain, nausea, vomiting, diarrhea, and constipation, Back: Negative for injury and pain, : Negative for injury, bleeding, discharge, and swelling, Skin: Negative for injury, rash, and discoloration, Neuro: Negative for headache, weakness, numbness, tingling, and seizure, Psych: Negative for depression, anxiety, suicide ideation, homicidal ideation, and hallucinations, Allergy/Immunology: Negative for hives, rash, and allergies, Endocrine: Negative for neck swelling, polydipsia, polyuria, polyphagia, and marked weight changes, Hematologic/Lymphatic: Negative for swollen nodes, abnormal bleeding, and unusual bruising. 09:11 MS/extremity: Positive for decreased range of motion, pain, swelling, tenderness, of the lateral aspect of left calf, left lateral ankle, lateral aspect of left foot, medial aspect of left calf, left medial ankle, medial aspect of left foot, anterior aspect of left ankle and dorsum of left foot. Exam: 09:11 Constitutional: This is a well developed, well nourished patient who is awake, alert, michael and in no acute distress. Head/Face: Normocephalic, atraumatic. Eyes: Pupils equal round and reactive to light, extra-ocular motions intact. Lids and lashes normal. Conjunctiva and sclera are non-icteric and not injected. Cornea within normal limits. Periorbital areas with no swelling, redness, or edema. ENT: Nares patent. No nasal discharge, no septal abnormalities noted. Tympanic membranes are normal and external auditory canals are clear. Oropharynx with no redness, swelling, or masses, exudates, or evidence of obstruction, uvula midline. Mucous membranes moist. Neck: Trachea midline, no thyromegaly or masses palpated, and no cervical lymphadenopathy. Supple, full range of motion without nuchal rigidity, or vertebral point tenderness. No Meningismus. Chest/axilla: Normal chest wall appearance and motion. Nontender with no deformity. No lesions are appreciated. Cardiovascular: Regular rate and rhythm with a normal S1 and S2. No gallops, murmurs, or rubs. Normal PMI, no JVD. No pulse deficits. Respiratory: Lungs have equal breath sounds bilaterally, clear to auscultation and percussion. No rales, rhonchi or wheezes noted. No increased work of breathing, no retractions or nasal flaring. Abdomen/GI: Soft, non-tender, with normal bowel sounds. No distension or tympany. No guarding or rebound. No evidence of tenderness throughout. Back: No spinal tenderness. No costovertebral tenderness. Full range of motion. Male : Normal genitalia with no discharge or lesions. Skin: Warm, dry with normal turgor. Normal color with no rashes, no lesions, and no evidence of cellulitis. Neuro: Awake and alert, GCS 15, oriented to person, place, time, and situation. Cranial nerves II-XII grossly intact. Motor strength 5/5 in all extremities. Sensory grossly intact. Cerebellar exam normal. Normal gait. Psych: Awake, alert, with orientation to person, place and time. Behavior, mood, and affect are within normal limits. 09:11 Musculoskeletal/extremity: ROM: intact in all extremities, full active range of motion, full passive range of motion, Pulses: noted to be 2+ in the left popliteal artery, numbness, Compartment Syndrome exam of affected extremity: is normal. DVT Exam: negative Homans' sign noted on exam, no appreciated bluish discoloration, pain, swelling, tenderness, erythema, increased warmth, of the left leg, of the left lateral ankle, lateral aspect of left foot, left medial ankle, medial aspect of left foot, anterior aspect of left ankle and dorsum of left foot. 09:35 ECG was reviewed by the Attending Physician. [facility] Vital Signs: 08:59 BP 159 / 83; Pulse 106; Resp 17; Temp 98.8; Pulse Ox 100% ; Weight 97.07 kg; Height 6 vg1 ft. 0 in. (182.88 cm); Pain 5/10; 08:59 Body Mass Index 29.02 (97.07 kg, 182.88 cm) vg1 MDM: 09:03 Patient medically screened. [facility] 09:14 Data reviewed: vital signs, nurses notes, lab test result(s), EKG, radiologic studies, [facility] plain films. Data interpreted: Pulse oximetry: on room air is 100 %. Test interpretation: by ED physician or midlevel provider: ECG, plain radiologic studies. Counseling: I had a detailed discussion with the patient and/or guardian regarding: the historical points, exam findings, and any diagnostic results supporting the discharge/admit diagnosis, lab results, radiology results, the need for further work-up and treatment in the hospital. 04/17 09:06 Order name: Basic Metabolic Panel [facility] 04/17 08:06 Order name: CBC with Diff [facility] 04/17 08:06 Order name: LFT's [facility] 04/17 08:06 Order name: Magnesium [facility] 04/17 08:06 Order name: NT PRO-BNP [facility] 04/17 08:06 Order name: PT-INR; Complete Time: 10:24 [facility] 04/17 09:06 Order name: Troponin HS [facility] 04/17 09:06 Order name: XRAY Chest (1 view); Complete Time: 10:24 [facility] 04/17 09:06 Order name: SARS-COV-2 RT PCR (Document "Date of Onset" if Symptomatic) [facility] 04/17 09:06 Order name: Basic Metabolic Panel EDMS 04/17 09:06 Order name: CBC with Automated Diff; Complete Time: 10:24 EDMS 04/17 13:01 Order name: Urine Dipstick-Ancillary EDMS 04/17 09:06 Order name: EKG; Complete Time: 09:06 [facility] 04/17 09:06 Order name: Cardiac monitoring; Complete Time: 09:21 [facility] 04/17 09:06 Order name: EKG - Nurse/Tech; Complete Time: 09:21 [facility] 04/17 09:06 Order name: IV Saline Lock; Complete Time: 09:21 [facility] 04/17 09:06 Order name: Labs collected and sent; Complete Time: 09:21 [facility] 04/17 09:06 Order name: O2 Per Protocol; Complete Time: 09:21 [facility] 04/17 09:06 Order name: O2 Sat Monitoring; Complete Time: 09:21 [facility] 04/17 09:06 Order name: Urine Dipstick-Ancillary (obtain specimen); Complete Time: 13:01 [facility] EC:35 Rate is 102 beats/min. Rhythm is regular. QRS [place] is Normal. RI interval is normal. [facility] QRS interval is normal. QT interval is normal. No Q waves. T waves are Normal. No ST changes noted. Clinical impression: NSR w/ Non-specific ST/T Changes and No evidence of ischemia. Interpreted by me. Reviewed by me. Administered Medications: : Drug: NS 0.9% 1000 ml Route: IV; Rate: 125 ml/hr; Site: right antecubital; [facility] 14:25 Follow up: IV Status: Infusion continued upon admission jl7 :26 Drug: morphine 4 mg Route: IVP; Site: right antecubital; [facility] 09:45 Follow up: Response: No adverse reaction; Pain is decreased jl7 09:27 Drug: Zofran (Ondansetron) 4 mg Route: IVP; Site: right antecubital; [facility] 14:25 Follow up: Response: No adverse reaction jl7 Disposition Summary: 04/17/21 09:16 Hospitalization Ordered Hospitalization Status: Inpatient Admission michael Provider: Cirilo Dimas cha Condition: Fair michael Problem: new michael Symptoms: have improved michael Bed/Room Type: Standard michael Location: Telemetry/MedSurg (Inpatient)(04/17/21 12:51) bd Room Assignment: 207(04/17/21 14:00) dw Diagnosis - Gangrene, not elsewhere classified - left foot michael - Type 1 diabetes mellitus with hyperglycemia michael - Essential (primary) hypertension michael Forms: - Medication Reconciliation Form michael - SBAR form michael Signatures: Dispatcher [employer] EDMercedes Jara Diana, RN RN Miguelito Swain MD MD cha Garcia, Victoria RN RN vg1 Annalisa Valles RN RN jh5 Murphy Cartwright RN jl7 Corrections: (The following items were deleted from the chart) 12:47 09:16 michael bd 12:50 09:16 Telemetry/MedSurg (Inpatient) michael bd 12:50 12:47 204 bd bd 12:51 12:50 [facility] ER HOLD bd bd 12:51 12:50 ERHOLD- bd bd 14:00 12:51 bd dw
[2021-04-17 09:29] LABS: Absolute Lymphocytes (CBC) 1.2 K/uL (0.7-4.9); Hematocrit 31.5 % (39.6-49.0); Lymphocytes % 12.7 % (15.3-44.8); MPV 6.9 fL (7.6-11.3); RBC Red Blood Cell Count 3.51 M/uL (4.33-5.43)
[2021-04-17 09:43] LABS: Protime INR 1.17
--- NOTE | 2021-04-17 09:55 | RAD REPORT ---
EXAM DESCRIPTION: RAD - Chest Single View - 04/17/2021 9:23 am CLINICAL HISTORY: COUGH COMPARISON: Two view chest December 2020 TECHNIQUE: AP portable chest image was obtained 04/17/2021 9:23 am . FINDINGS: Lung volumes are low compared to the prior study. No focal lung parenchymal process. Inter stitial pattern matches the comparison examination. Heart and vasculature are normal. No measurable pleural effusion and no pneumothorax. No acute bony abnormality seen. No acute aortic findings suspected. IMPRESSION: No acute cardiopulmonary process. No significant change from comparison study.
[2021-04-17 09:58] LABS: ALT/SGPT 21 U/L (12-78); AST/SGOT 15 U/L (15-37); Albumin 2.8 g/dL (3.4-5.0); Alkaline Phosphatase 77 U/L (45-117); BUN Blood Urea Nitrogen 16 mg/dL (7-18); Bicarbonate 24 mmol/L (21-32); Bilirubin Direct < 0.1 mg/dL (0-0.2); Bilirubin Total 0.3 mg/dL (0.2-1.0); Glucose Level 289 mg/dL (74-106); NT PRO-BNP 117 pg/mL (<125); Potassium 4.3 mmol/L (3.5-5.1); Protein, Total 9.4 g/dL (6.4-8.2); Sodium Level 133 mmol/L (136-145)
--- NOTE | 2021-04-17 12:22 | P.HP ---
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 Martin for evaluation and admission for gangrene of the left second and third toes. Dr. Martin is planning amputation. Patient with a history of peripheral vascular disease status post multiple vascular interventions on the left leg. He has diabetes which is controlled with Metformin and insulin. Patient reports intermittent pain in the left foot. He denied any fever or anorexia. Blood work in the ED is unremarkable except anemia with hemoglobin 10 and hyperglycemia. Patient is hospitalized for further management. Allergies codeine Allergy (Mild, Verified 08/09/20 08:05) tachycardia and nightmares Home Medications: Metformin HCl 1,000 mg PO BID 04/15/17 Ramipril [Altace] 10 mg PO DAILY 04/15/17 Ascorbic Acid [Vitamin C*] 500 mg PO DAILY 06/11/20 Cholecalciferol (Vitamin D3) [Vitamin D3] 1,000 unit PO DAILY 06/11/20 Docosahexanoic AC/Epa [Fish Oil 1,000 MG CAP] 1,000 mg PO DAILY 06/11/20 Ferrous Sulfate [Iron] 325 mg PO DAILY 06/11/20 Insulin Glargine,Hum.rec.anlog [Lantus] 70 unit SQ BIDP PRN 06/11/20 Vitamin B Complex [Vitamin B Complex*] 1 cap PO DAILY 06/11/20 Ciprofloxacin HCl [Cipro 500 MG Tablet] 500 mg PO BID #14 tab 08/13/20 Tramadol HCl/Acetaminophen [Ultracet Tablet] 1 each PO Q4H PRN #20 tablet 08/13/20 - Past Medical/Surgical History Diabetic: Yes -: DM -: HTN -: No significant abdominal surgeries -: Left great toe debridement Psychosocial/ Personal History: Patient is . 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 - Family History Father -: Diabetes Mother -: Diabetes - Social History Alcohol use: No CD- Drugs: No Caffeine use: Yes Review of Systems Other: Except as documented, all other systems reviewed and negative. Physical Examination - Physical Exam General: Alert, In no apparent distress, Oriented x3 HEENT: PERRLA, Mucous membr. moist/pink, EOMI, Sclerae nonicteric Neck: Supple, JVD not distended Respiratory: Clear to auscultation bilaterally, Normal air movement Cardiovascular: No edema, Regular rate/rhythm, Normal S1 S2 Capillary refill: <2 Seconds Gastrointestinal: Normal bowel sounds, Soft and benign, Non-distended, No tenderness Musculoskeletal: No swelling, Other (Gangrene of left second and third toes.) Integumentary: No cyanosis, Other (Gangrene on the dorsum of the left foot.) Neurological: Normal strength at 5/5 x4 extr, Cranial nerves 3-12 intact Lymphatics: No axilla or inguinal lymphadenopathy - Studies Laboratory Data (last 24 hrs) 04/17/21 09:21: PT 13.5 H, INR 1.17 04/17/21 09:21: WBC 9.30, Hgb 10.5 L, Hct 31.5 L, Plt Count 539 H 04/17/21 09:21: Sodium 133 L, Potassium 4.3, BUN 16, Creatinine 0.96, Glucose 289 H, Total Bilirubin 0.3, AST 15, ALT 21, Alkaline Phosphatase 77 Assessment and Plan - Problems (Diagnosis) (1) Gangrene of toe of left foot Current Visit: Yes Status: Acute (2) Diabetes mellitus type 2 in obese Current Visit: Yes Status: Acute (3) Hypertension Current Visit: No Status: Acute (4) Diabetic foot ulcer Current Visit: No Status: Chronic (5) Cellulitis Current Visit: No Status: Resolved - Plan Admit patient to the medical floor. Start broad-spectrum antibiotic. Slow IV fluid hydration. Consult to general surgery-Dr. Martin who is planning amputation. Aggressive blood sugar management with long-acting insulin and insulin sliding scale to keep blood sugar below 200. Pain management as needed. Continue other home medications for hypertension and hyperlipidemia. - Advance Directives Does patient have a Living Will: No Does patient have a Durable POA for Healthcare: No
[2021-04-17 13:01] LABS: Urine Blood Negative (Negative); Urine Glucose Trace (Negative); Urine Protein 2+ (Negative); Urine Specific Gravity 1.015 (1.005-1.030); Urine pH 5.5 (5.0-7.0)
[2021-04-17] MEDS ORDERED: PNEUMOCOCCAL VACCINE 0.5 ML IMVAC ONE (15:00)
[2021-04-17] MEDS ORDERED: VANCOMYCIN 1 GM in NA CHLORIDE 0.9% 250 ML IVPB SCH (15:12)
[2021-04-17] MEDS ORDERED: ACETAMINOPHEN 500 MG TAB PO PRN (15:12)
[2021-04-17] MEDS: NA CHLORIDE 0.9% 1,000 ML IV SCH (16:21)
[2021-04-17] MEDS: INSULIN -REGULAR HUMAN 50 UNIT/0.5 ML ML SQ SCH ×2 (16:47→21:00)
[2021-04-17] MEDS: HEPARIN 5000 UNIT/ML 1 ML VIAL SQ SCH (16:48)
[2021-04-17] MEDS: VANCOMYCIN 1.75 GM in NA CHLORIDE 0.9% 500 ML IVPB SCH (17:40)
[2021-04-17] MEDS: CEFEPIME 1 GM in NA CHLORIDE 0.9% 100 ML IV SCH (20:38)
[2021-04-18 00:06] LABS: Magnesium 1.5
[2021-04-18] MEDS: HEPARIN 5000 UNIT/ML 1 ML VIAL SQ SCH ×3 (00:12→16:13)
[2021-04-18] MEDS: VANCOMYCIN 1.75 GM in NA CHLORIDE 0.9% 500 ML IVPB SCH ×2 (04:53→16:22)
[2021-04-18 06:41] LABS: Absolute Lymphocytes (CBC) 1.3 K/uL (0.7-4.9); Hematocrit 29.6 % (39.6-49.0); Lymphocytes % 16.8 % (15.3-44.8); MPV 7.1 fL (7.6-11.3); RBC Red Blood Cell Count 3.32 M/uL (4.33-5.43)
[2021-04-18 06:53] LABS: Protime INR 1.22
[2021-04-18 06:59] LABS: BUN Blood Urea Nitrogen 12 mg/dL (7-18); Bicarbonate 26 mmol/L (21-32); Glucose Level 150 mg/dL (74-106); Phosphorus 3.6 mg/dL (2.5-4.9); Potassium 4.1 mmol/L (3.5-5.1); Sodium Level 136 mmol/L (136-145)
[2021-04-18] MEDS: INSULIN -REGULAR HUMAN 50 UNIT/0.5 ML ML SQ SCH ×4 (07:30→21:00)
[2021-04-18] MEDS: CEFEPIME 1 GM in NA CHLORIDE 0.9% 100 ML IV SCH (09:32)
[2021-04-18] MEDS: NA CHLORIDE 0.9% 1,000 ML IV SCH (12:01)
--- NOTE | 2021-04-18 12:48 | P.PN ---
Subjective Date of Service: 04/18/21 Chief Complaint: Left fooot toes gangrene Patient has no complaint except intermittent pain in the left foot. Physical Examination - Vital Signs Temperature: 98 F Blood Pressure: 152/77 Pulse: 88 Respirations: 18 Pulse Ox (%): 98 - Physical Exam General: Alert, In no apparent distress HEENT: Mucous membr. moist/pink Neck: JVD not distended Respiratory: Clear to auscultation bilaterally, Normal air movement Cardiovascular: No edema, Regular rate/rhythm, Normal S1 S2 Gastrointestinal: Soft and benign, Non-distended Musculoskeletal: Other (Gangrene-left second and third toes.) Integumentary: No cyanosis Neurological: Normal strength at 5/5 x4 extr - Studies Laboratory Data (last 24 hrs) 04/17/21 09:21: Magnesium 1.5 Assessment And Plan - Current Problems (Diagnosis) (1) Gangrene of toe of left foot Current Visit: Yes Status: Acute (2) Diabetes mellitus type 2 in obese Current Visit: Yes Status: Acute (3) Hypertension Current Visit: No Status: Acute (4) Diabetic foot ulcer Current Visit: No Status: Chronic (5) Cellulitis Current Visit: No Status: Resolved - Plan Continue broad-spectrum antibiotics Slow IV fluid hydration. Consult to general surgery-Dr. Martin who is planning amputation on Thursday Aggressive blood sugar management with long-acting insulin and insulin sliding scale to keep blood sugar below 200. Pain management as needed. Continue home medications for hypertension and hyperlipidemia.
[2021-04-18] MEDS: OXYCODONE HCL 5 MG TAB PO PRN (16:21)
[2021-04-19] MEDS: HEPARIN 5000 UNIT/ML 1 ML VIAL SQ SCH (01:00)
[2021-04-19] MEDS: CEFEPIME 1 GM in NA CHLORIDE 0.9% 100 ML IV SCH ×3 (01:07→21:29)
[2021-04-19 04:31] LABS: Absolute Lymphocytes (CBC) 1.4 K/uL (0.7-4.9); Hematocrit 27.5 % (39.6-49.0); MPV 6.9 fL (7.6-11.3); RBC Red Blood Cell Count 3.09 M/uL (4.33-5.43)
[2021-04-19 04:43] LABS: Potassium 4.1 mmol/L (3.5-5.1)
[2021-04-19] MEDS ORDERED: LIDOCAINE 2% MPF 5 ML VIAL ONE ×2 (06:57→07:57)
[2021-04-19] MEDS ORDERED: dexAMETHasone 10 MG/ML VIAL ONE (06:57)
[2021-04-19] MEDS ORDERED: MIDAZOLAM HCL 2 MG/2 ML INJ ONE (06:58)
[2021-04-19] MEDS ORDERED: FENTANYL CITR 100 MCG/2 ML ONE (06:58)
[2021-04-19] MEDS: NA CHLORIDE 0.9% 1,000 ML IV SCH ×3 (07:01→11:07)
[2021-04-19] MEDS: INSULIN -REGULAR HUMAN 50 UNIT/0.5 ML ML SQ SCH ×4 (07:30→21:27)
[2021-04-19] MEDS: VANCOMYCIN 1.75 GM in NA CHLORIDE 0.9% 500 ML IVPB SCH ×2 (07:41→07:51)
--- NOTE | 2021-04-19 07:46 | P.BOP ---
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
[2021-04-19] MEDS ORDERED: propofoL 200 MG/20 ML VIAL IV ONE (07:56)
--- NOTE | 2021-04-19 08:22 | CON ---
Date of addendum to rodrick consultation: 04/19/2021 This male is a 61-year-old, admitted 2 days ago with gangrene of the left foot, started on IV antibiotics and wound care optimization and then after that, we explained to him also the need for left below-knee amputation. [facility] He has been fighting this for several months already, many revascularizations, many visits to the [facility] Centers, different ones, but unable to save his foot. We are trying to save his leg. Today, he is consented for the left below-knee amputation and once again the benefits, alternatives, and risks were fully explained, which include, but not limited to infection, bleeding, damage to adjacent structures, anesthesia complication, flap failure, higher amputation, LA, and even . He understands he still has to watch his diet, his glucose, and be compliant with his medical treatment. ERIC/MODL Voice ID: [id number] Report ID: [id number] CHASTITY
[2021-04-19] MEDS ORDERED: Phenylephrine HCl 10 MG/ML 1 ML VIAL ONE (08:59)
[2021-04-19] MEDS ORDERED: NA CHLORIDE 0.9% 50 ML ONE (09:05)
[2021-04-19] MEDS ORDERED: KETOROLAC 30 MG/ML INJ ONE (09:06)
[2021-04-19] MEDS ORDERED: ONDANSETRON 4 MG/2 ML VIAL ONE (09:06)
--- NOTE | 2021-04-19 11:34 | OP ---
Date of Procedure: 04/19/2021 Surgeon: Saul Martin MD Ward Supervisor: Kristine Brandon. Preoperative Diagnosis: Left foot gangrene. Postoperative Diagnosis: Left foot gangrene. Procedure: Left below-knee amputation. Estimated Blood Loss: Less than 50 cc. Specimen: Left foot. Finding: Gangrene. Anesthesia: General plus local. Drains: PALOMA #10. Indication: This is the case of a male, who comes to us after multiple vascular procedures to try to save his foot that developed gangrene. He now understands the options of the below-knee amputation and he wants to use that option. The benefits, alternatives, and risks fully explained to the patien t again today, which include, but not limited to infection, bleeding, damage to adjacent structures, anesthesia complication, flap failure, ME, and even . He also understands this may not relieve any symptoms. He might need more than one surgical intervention. He understood, signed a consent. He also understands the importance of being compliant with doctor's treatment and also diabetes contr ol. Procedure In Detail: The patient was brought to the operating room, placed in supine position. Anes thesia was done without complication. The patient has a block placed by the Anesthesia Department. When the patient is in the OR, we proceeded to prep and drape the left leg in the usual sterile fashi on. A time-out was called. After that, we proceeded then to made anterior and posterior skin incisi ons, first outlined with a marking pen, then used 11 blade. The incision was extended laterally to e ither side, parallel to the tibia about 15 cm creating a posterior flap. Saphenous veins were also i dentified and ligated. The muscles were divided with the help of the Bovie cauterizer. The muscles of the anterior compartment and lateral compartments were divided exposing the anterior tibial vessel s and were ligated using 0 silk. The interosseous membrane was carefully incised. The tibial perios teum was then incised circumferentially with Bovie cauterizer. Periosteal elevator was used to strip the tibial periosteum approximately 2 cm. The tibia was transected with the help of sagittal saw ab out 2 cm proximal to the skin and with an anterior bevel. The fibula was then exposed, dissected cir cumferentially, and transected with the help of a bone cutter proximal to the tibial division. The a mputation was then completed with the help of Bovie cauterizer and a knife transecting the soleus mus doreen obliquely and the gastrocnemius muscle at the same level of the posterior flap. Veins were caref ully ligated. Sharp bony edges were filed over the anterior aspect. The fascia of the anterior and posterior muscle flaps were approximated after profuse irrigation and hemostasis were obtained. We a lso put a PALOMA drain over that area exiting through a different incision site and secured in place with 3-0 nylon. The muscle flaps were approximated with the help of Vicryl. The skin was approximated w ith a 3-0 chromic subcutaneous tissue and then the skin was approximated with keyon. Sponge count, instrument counts were correct. The patient tolerated the procedure well. The patient on his way t o recovery in stable condition. The patient will remain under the service of the hospitalist. We ar e going to consult Rehab to help us in safe discharge and mobilization. ERIC/SHERRI Voice ID: [id number] Report ID: [id number]
--- NOTE | 2021-04-19 15:13 | P.PN ---
Subjective Date of Service: 04/19/21 Chief Complaint: Left fooot toes gangrene Status post left below-knee amputation today. Patient currently has no new complaint. Physical Examination - Vital Signs Temperature: 98.6 F Blood Pressure: 137/72 Pulse: 83 Respirations: 18 Pulse Ox (%): 98 - Physical Exam General: Alert, In no apparent distress, Oriented x3 HEENT: Mucous membr. moist/pink Neck: JVD not distended Respiratory: Clear to auscultation bilaterally, Normal air movement Cardiovascular: Regular rate/rhythm, Normal S1 S2, No murmurs Gastrointestinal: Normal bowel sounds, Soft and benign, Non-distended, No tenderness Musculoskeletal: Other (Left BKA stump dressed) Integumentary: No rashes, No cyanosis Neurological: Normal speech, Normal strength at 5/5 x4 extr Assessment And Plan - Current Problems (Diagnosis) (1) Gangrene of toe of left foot Current Visit: Yes Status: Acute (2) Diabetes mellitus type 2 in obese Current Visit: Yes Status: Acute (3) Hypertension Current Visit: No Status: Acute (4) Diabetic foot ulcer Current Visit: No Status: Chronic (5) Cellulitis Current Visit: No Status: Resolved - Plan Continue broad-spectrum antibiotics for 1 more day and discontinue. Dr. Martin recommend rehab evaluation. Rehab consulted. Diet as tolerated. Discontinue IV fluid. Aggressive blood sugar management with long-acting insulin and insulin sliding scale to keep blood sugar below 200. Pain management as needed. Continue home medications for hypertension and hyperlipidemia.
[2021-04-19] MEDS ORDERED: HOME MED 1 EA UNK (Insulin Glargine,Hum.Rec.Anlog [Toujeo Solostar] 300 UNIT/ML Insuln.Pen SQ SCH (15:30)
[2021-04-19] MEDS: METFORMIN HCL 500 MG TAB PO SCH (16:20)
[2021-04-19] MEDS ORDERED: HOME MED 1 EA UNK (Metformin Hcl [Metformin Hcl] 1,000 MG Tablet) PO SCH (21:00)
[2021-04-19] MEDS: INSULIN GLARGINE 100 UNIT/ML SQ SCH (21:26)
[2021-04-19] MEDS: VANCOMYCIN 1.5 GM in NA CHLORIDE 0.9% 500 ML IVPB SCH (21:26)
[2021-04-19] MEDS: ATORVASTATIN 10 MG TAB PO SCH (21:29)
[2021-04-20 05:13] LABS: Absolute Lymphocytes (CBC) 0.8 K/uL (0.7-4.9); Hematocrit 26.4 % (39.6-49.0); Lymphocytes % 7.6 % (15.3-44.8); MPV 7.3 fL (7.6-11.3); RBC Red Blood Cell Count 2.98 M/uL (4.33-5.43)
[2021-04-20 05:34] LABS: Potassium 4.1 mmol/L (3.5-5.1)
[2021-04-20] MEDS: CEFEPIME 1 GM in NA CHLORIDE 0.9% 100 ML IV SCH (08:00)
[2021-04-20] MEDS: INSULIN -REGULAR HUMAN 50 UNIT/0.5 ML ML SQ SCH ×4 (08:15→21:17)
[2021-04-20] MEDS: INSULIN GLARGINE 100 UNIT/ML SQ SCH ×2 (08:39→21:16)
[2021-04-20] MEDS: CLOPIDOGREL 75 MG TABLET PO SCH (08:41)
[2021-04-20] MEDS: METFORMIN HCL 500 MG TAB PO SCH ×2 (08:42→17:19)
[2021-04-20] MEDS: AMLODIPINE 5 MG TAB PO SCH (08:42)
[2021-04-20] MEDS: VANCOMYCIN 1.5 GM in NA CHLORIDE 0.9% 500 ML IVPB SCH ×2 (08:42→09:00)
[2021-04-20] MEDS ORDERED: HOME MED 1 EA UNK (Clopidogrel Bisulfate [Clopidogrel] 300 MG Tablet) PO SCH (09:00)
--- NOTE | 2021-04-20 11:18 | P.PN ---
Subjective Date of Service: 04/20/21 Chief Complaint: Left fooot toes gangrene Status post left below-knee amputation day 2 Patient currently has no new complaint. Blood sugar is more elevated today. Physical Examination - Vital Signs Temperature: 97.0 F Blood Pressure: 151/68 Pulse: 86 Respirations: 18 Pulse Ox (%): 86 - Physical Exam General: Alert, In no apparent distress, Oriented x3 HEENT: Mucous membr. moist/pink Neck: JVD not distended Respiratory: Clear to auscultation bilaterally, Normal air movement Cardiovascular: No edema, Regular rate/rhythm, Normal S1 S2 Gastrointestinal: Normal bowel sounds, Soft and benign, Non-distended, No tenderness Musculoskeletal: Other (Left BKA) Integumentary: No rashes Neurological: Normal strength at 5/5 x4 extr Assessment And Plan - Current Problems (Diagnosis) (1) Gangrene of toe of left foot Current Visit: Yes Status: Acute (2) Diabetes mellitus type 2 in obese Current Visit: Yes Status: Acute (3) Hypertension Current Visit: No Status: Acute (4) Diabetic foot ulcer Current Visit: No Status: Chronic (5) Cellulitis Current Visit: No Status: Resolved - Plan Discontinue antibiotics. Rehab evaluation for inpatient rehab placement. Diet as tolerated. Aggressive blood sugar management with long-acting insulin and insulin sliding scale to keep blood sugar below 200. Titrate Lantus insulin. Pain management as needed. Continue home medications for hypertension and hyperlipidemia.
[2021-04-20] MEDS: OXYCODONE HCL 5 MG TAB PO PRN (12:29)
[2021-04-20] MEDS ORDERED: OXYCODONE HCL 5 MG TAB PO PRN (14:11)
[2021-04-20] MEDS ORDERED: OXYCODONE HCL 5 MG TAB PO ONE (14:15)
[2021-04-20] MEDS: FENTANYL CITR 100 MCG/2 ML IV PRN (20:48)
[2021-04-20] MEDS: ATORVASTATIN 10 MG TAB PO SCH (21:19)
[2021-04-21] MEDS: FENTANYL CITR 100 MCG/2 ML IV PRN ×4 (01:06→21:21)
[2021-04-21 06:23] LABS: Absolute Lymphocytes (CBC) 1.7 K/uL (0.7-4.9); Hematocrit 27.1 % (39.6-49.0); Lymphocytes % 17.7 % (15.3-44.8); MPV 6.8 fL (7.6-11.3); RBC Red Blood Cell Count 3.06 M/uL (4.33-5.43)
[2021-04-21 06:30] LABS: BUN Blood Urea Nitrogen 16 mg/dL (7-18); Bicarbonate 26 mmol/L (21-32); Glucose Level 114 mg/dL (74-106); Potassium 4.1 mmol/L (3.5-5.1); Sodium Level 136 mmol/L (136-145)
[2021-04-21] MEDS: INSULIN -REGULAR HUMAN 50 UNIT/0.5 ML ML SQ SCH ×4 (07:30→21:06)
[2021-04-21] MEDS: INSULIN GLARGINE 100 UNIT/ML SQ SCH ×2 (08:39→21:06)
[2021-04-21] MEDS: METFORMIN HCL 500 MG TAB PO SCH ×2 (08:40→17:07)
[2021-04-21] MEDS: CLOPIDOGREL 75 MG TABLET PO SCH (08:40)
[2021-04-21] MEDS: AMLODIPINE 5 MG TAB PO SCH (08:40)
--- NOTE | 2021-04-21 11:10 | PN ---
Date of Progress Note: 04/21/2021 Reason For Admission: Status post left below-knee amputation. Subjective: The patient is doing well. No complaint. No nausea. No vomiting. Still having some p ain on the amputation site and relieved with the IV pain medications. Review of Systems: Ten points otherwise unremarkable. Physical Examination: General: The patient is awake, alert. Chest: Clear. Abdomen: Soft and depressible. Extremity: Intact surgical site. PALOMA drain is minimal, serosanguineous. Laboratory Data: Blood work shows a hemoglobin of 9.5 with hematocrit 27.1. INR is 1.22 and creatin ine is 0.83. Potassium is 4.1. Plan: As we mentioned to him yesterday, we were in the process of show him how to be safe transferri ng from back and forward. Rehab is doing a good job. They had been working on him yesterday. They are working him today once again and there is a possibility that he may need either rehab at home or even admission to the rehab unit on the second floor and will let the ex-person that decide what is t he best for our patient. From the surgical standpoint, we are going to leave everything intact right now. Continue service by the primary doctor. ERIC/SHERRI Voice ID: [id number] Report ID: [id number]
[2021-04-21] MEDS ORDERED: MORPHINE 4 MG/ML SYR IV PRN (12:47)
--- NOTE | 2021-04-21 12:50 | P.PN ---
Subjective Date of Service: 04/21/21 Chief Complaint: Left fooot toes gangrene Status post left below-knee amputation day 3 Patient complaining of uncontrolled pain in the left amputation stump. Blood sugar readings have significantly improved and at target. Physical Examination - Vital Signs Temperature: 96.9 F Blood Pressure: 151/75 Pulse: 81 Respirations: 17 Pulse Ox (%): 95 - Physical Exam General: Alert, In no apparent distress, Oriented x3 HEENT: Mucous membr. moist/pink Neck: JVD not distended Respiratory: Clear to auscultation bilaterally, Normal air movement Cardiovascular: No edema, Regular rate/rhythm, Normal S1 S2 Gastrointestinal: Soft and benign, Non-distended, No tenderness Musculoskeletal: Other (Left BKA) Neurological: Other (No focal motor deficit) Assessment And Plan - Current Problems (Diagnosis) (1) Gangrene of toe of left foot Current Visit: Yes Status: Acute (2) Diabetes mellitus type 2 in obese Current Visit: Yes Status: Acute (3) Hypertension Current Visit: No Status: Acute (4) Diabetic foot ulcer Current Visit: No Status: Chronic (5) Cellulitis Current Visit: No Status: Resolved - Plan Off antibiotics. Rehab evaluation for inpatient rehab placement. Diet as tolerated. Aggressive blood sugar management with long-acting insulin and insulin sliding scale to keep blood sugar below 200. Titrate Lantus insulin. Pain management as needed-around oxycodone and IV fentanyl. Continue home medications for hypertension and hyperlipidemia.
[2021-04-21] MEDS: ATORVASTATIN 10 MG TAB PO SCH (21:08)
[2021-04-22] MEDS: FENTANYL CITR 100 MCG/2 ML IV PRN ×4 (02:42→21:05)
[2021-04-22 06:10] LABS: Magnesium 1.8 mg/dL (1.8-2.4); Phosphorus 4.1 mg/dL (2.5-4.9); Potassium 3.9 mmol/L (3.5-5.1)
[2021-04-22] MEDS: INSULIN -REGULAR HUMAN 50 UNIT/0.5 ML ML SQ SCH ×4 (07:30→21:03)
[2021-04-22 08:14] VITALS: O2SAT 98
[2021-04-22] MEDS: METFORMIN HCL 500 MG TAB PO SCH ×2 (08:30→16:52)
[2021-04-22] MEDS ORDERED: POTASSIUM CL SA 10 MEQ TAB PO ONE (09:00)
[2021-04-22] MEDS: CLOPIDOGREL 75 MG TABLET PO SCH (09:16)
[2021-04-22] MEDS: AMLODIPINE 5 MG TAB PO SCH (09:16)
[2021-04-22] MEDS: INSULIN GLARGINE 100 UNIT/ML SQ SCH ×2 (11:53→21:05)
[2021-04-22] MEDS: OXYCODONE HCL 5 MG TAB PO PRN (11:59)
--- NOTE | 2021-04-22 14:51 | P.PN ---
Subjective Date of Service: 04/22/21 Chief Complaint: Left fooot toes gangrene Status post left below-knee amputation day 4 Patient seen undergoing PT today., He has no new complaint. He states his pain is better controlled on the current regimen. Physical Examination - Vital Signs Temperature: 98.3 F Blood Pressure: 132/67 Pulse: 96 Respirations: 18 Pulse Ox (%): 98 - Physical Exam General: Alert, In no apparent distress, Oriented x3 HEENT: Mucous membr. moist/pink Neck: JVD not distended Respiratory: Clear to auscultation bilaterally, Normal air movement Cardiovascular: No edema, Regular rate/rhythm, Normal S1 S2 Gastrointestinal: Soft and benign, Non-distended Integumentary: No rashes Neurological: Normal strength at 5/5 x4 extr Assessment And Plan - Current Problems (Diagnosis) (1) Gangrene of toe of left foot Current Visit: Yes Status: Acute (2) Diabetes mellitus type 2 in obese Current Visit: Yes Status: Acute (3) Hypertension Current Visit: No Status: Acute (4) Diabetic foot ulcer Current Visit: No Status: Chronic (5) Cellulitis Current Visit: No Status: Resolved (6) Anemia Current Visit: Yes Status: Acute - Plan Off antibiotics. Awaiting inpatient rehab placement. Diet as tolerated. Aggressive blood sugar management with long-acting insulin and insulin sliding scale to keep blood sugar below 200. Continue current insulin regimen Pain management as needed-around oxycodone and IV fentanyl. Continue home medications for hypertension and hyperlipidemia. Anemia stable. Continue PT.
--- NOTE | 2021-04-22 15:31 | PN ---
Date of Progress Note: 04/22/2021 Reason For Admission: Status post left below-knee amputation. Subjective: Doing well. No complaint. No shortness of breath. No chest pain. No fever. Objective: Vital Signs: Stable. General: The patient is awake, alert. No distress. Extremity: Good capillary refill. Intact surgical site. PALOMA minimal drainage. Laboratory Data: Blood work reviewed. Assessment/plan: The plan will be from the surgical standpoint he can be discharged if safe home, ot [facility], rehab floor. I am going to leave that to the primary doctor to decide the final since he is still trying to range for control of sugar. If he goes home or go to rehab, we will change dressing s and PALOMA drain this Thursday, so if he goes home, we will like him in our office this Thursday. ERIC/SHERRI Voice ID: [id number] Report ID: [id number]
[2021-04-22 17:04] VITALS: BMI 27.8
[2021-04-22] MEDS: ATORVASTATIN 10 MG TAB PO SCH (21:05)
[2021-04-23] MEDS: OXYCODONE HCL 5 MG TAB PO PRN ×3 (00:27→15:56)
[2021-04-23] MEDS: INSULIN -REGULAR HUMAN 50 UNIT/0.5 ML ML SQ SCH ×4 (07:30→21:00)
[2021-04-23] MEDS: INSULIN GLARGINE 100 UNIT/ML SQ SCH ×2 (09:00→21:08)
[2021-04-23] MEDS: CLOPIDOGREL 75 MG TABLET PO SCH (09:27)
[2021-04-23] MEDS: AMLODIPINE 5 MG TAB PO SCH (09:27)
[2021-04-23] MEDS: METFORMIN HCL 500 MG TAB PO SCH ×2 (09:27→16:12)
--- NOTE | 2021-04-23 14:22 | PN ---
Date of Progress Note: 04/23/2021 Diagnosis: Status post left below-knee amputation. Subjective: The patient is doing well. No complaint. No nausea. No vomiting. No fever. Tolerati ng diet. Objective: General: The patient is awake, alert. Lungs: Bilateral breath sounds. Extremities: Intact surgical site. PALOMA drain minimal, serosanguineous. Dressings are intact. Laboratory Data: Labs were reviewed including fingerstick at one point went over 200, but then it ca me down to the 80s. Plan: Continue medical service. He can be discharged to the rehab center or home with rehab wheneve r the medical doctors believe as needed since he is still having some issues with glucose. Rehab is seeing him for the proper ambulation, proper transfer. When he gets discharged or go to the rehab, andrea enriquez we will change the dressings at that moment and remove the PALOMA drain and that will be this Thursday. So, we are going to tracking where ever he is. ERIC/MODL Voice ID: [id number] Report ID: [id number]
--- NOTE | 2021-04-23 14:40 | P.PN ---
Subjective Date of Service: 04/23/21 Chief Complaint: Left fooot toes gangrene Status post left below-knee amputation day 5 Patient has no new complaint. He has been afebrile. Physical Examination - Vital Signs Temperature: 97.8 F Blood Pressure: 154/69 Pulse: 89 Respirations: 18 Pulse Ox (%): 99 - Physical Exam General: Alert, In no apparent distress, Oriented x3 HEENT: Mucous membr. moist/pink Neck: JVD not distended Respiratory: Clear to auscultation bilaterally, Normal air movement Cardiovascular: No edema, Regular rate/rhythm, Normal S1 S2 Gastrointestinal: Soft and benign, Non-distended, No tenderness Musculoskeletal: No swelling, Other (Left BKA) Neurological: Normal strength at 5/5 x4 extr Assessment And Plan - Current Problems (Diagnosis) (1) Gangrene of toe of left foot Current Visit: Yes Status: Acute (2) Diabetes mellitus type 2 in obese Current Visit: Yes Status: Acute (3) Hypertension Current Visit: No Status: Acute (4) Diabetic foot ulcer Current Visit: No Status: Chronic (5) Cellulitis Current Visit: No Status: Resolved (6) Anemia Current Visit: Yes Status: Acute - Plan Awaiting inpatient rehab placement. Diet as tolerated. Aggressive blood sugar management with long-acting insulin and insulin sliding scale to keep blood sugar below 200. Continue current insulin regimen Pain management as needed-around oxycodone and IV fentanyl. Continue home medications for hypertension and hyperlipidemia. Anemia stable. Off antibiotics. Continue PT.
[2021-04-23] MEDS: ONDANSETRON 4 MG/2 ML VIAL IV PRN (17:52)
[2021-04-23] MEDS: ATORVASTATIN 10 MG TAB PO SCH (20:22)
[2021-04-24 04:13] LABS: Absolute Lymphocytes (CBC) 1.6 K/uL (0.7-4.9); Hematocrit 26.4 % (39.6-49.0); Lymphocytes % 16.5 % (15.3-44.8); MPV 6.8 fL (7.6-11.3); RBC Red Blood Cell Count 2.99 M/uL (4.33-5.43)
[2021-04-24 04:23] LABS: Potassium 4.7 mmol/L (3.5-5.1)
[2021-04-24 08:10] LABS: Magnesium 1.6
[2021-04-24] MEDS: INSULIN -REGULAR HUMAN 50 UNIT/0.5 ML ML SQ SCH ×4 (09:48→20:06)
[2021-04-24] MEDS: INSULIN GLARGINE 100 UNIT/ML SQ SCH ×2 (09:49→20:06)
[2021-04-24] MEDS: METFORMIN HCL 500 MG TAB PO SCH ×2 (09:49→16:59)
[2021-04-24] MEDS: AMLODIPINE 5 MG TAB PO SCH (09:50)
[2021-04-24] MEDS: CLOPIDOGREL 75 MG TABLET PO SCH (09:50)
[2021-04-24] MEDS: ONDANSETRON 4 MG/2 ML VIAL IV PRN ×2 (12:38→20:06)
[2021-04-24] MEDS: OXYCODONE HCL 5 MG TAB PO PRN ×2 (12:38→20:06)
--- NOTE | 2021-04-24 14:23 | P.PN ---
Subjective Date of Service: 04/24/21 Chief Complaint: Left fooot toes gangrene Subjective: No new changes, No C/O voiced Physical Examination - Vital Signs Temperature: 97.5 F Blood Pressure: 138/68 Pulse: 110 Respirations: 18 Pulse Ox (%): 99 Assessment And Plan Physician Review: Patient Assessed, Agree with Above Assessment and Plan Physician Review Additional Text: 04/24/21 14:22 - Physical Exam General: Alert, In no apparent distress, Oriented x3 HEENT: Mucous membr. moist/pink Neck: JVD not distended Respiratory: Clear to auscultation bilaterally, Normal air movement Cardiovascular: No edema, Regular rate/rhythm, Normal S1 S2 Gastrointestinal: Soft and benign, Non-distended, No tenderness Musculoskeletal: No swelling, Other (Left BKA) Neurological: Normal strength at 5/5 x4 extr Assessment And Plan - Current Problems (Diagnosis) (1) Gangrene of toe of left foot Current Visit: Yes Status: Acute (2) Diabetes mellitus type 2 in obese Current Visit: Yes Status: Acute (3) Hypertension Current Visit: No Status: Acute (4) Diabetic foot ulcer Current Visit: No Status: Chronic (5) Cellulitis Current Visit: No Status: Resolved (6) Anemia Current Visit: Yes Status: Acute - Plan Awaiting inpatient rehab placement. Feels fine, continue current management Diet as tolerated. Aggressive blood sugar management with long-acting insulin and insulin sliding scale to keep blood sugar below 200. Continue current insulin regimen Pain management as needed-around oxycodone and IV fentanyl. Continue home medications for hypertension and hyperlipidemia. Anemia stable. Off antibiotics. Continue PT. Critical Care: No
[2021-04-24] MEDS: ATORVASTATIN 10 MG TAB PO SCH (20:05)
[2021-04-24] MEDS ORDERED: D10W 250 ML IV ONE (23:50)
[2021-04-25] MEDS: METFORMIN HCL 500 MG TAB PO SCH ×2 (08:16→16:54)
[2021-04-25] MEDS: AMLODIPINE 5 MG TAB PO SCH (08:16)
[2021-04-25] MEDS: CLOPIDOGREL 75 MG TABLET PO SCH (08:16)
[2021-04-25] MEDS: INSULIN -REGULAR HUMAN 50 UNIT/0.5 ML ML SQ SCH ×4 (08:17→20:35)
[2021-04-25] MEDS ORDERED: INSULIN GLARGINE 100 UNIT/ML SQ SCH ×2 (09:00→21:00)
--- NOTE | 2021-04-25 09:58 | P.DS ---
Admission Date: 04/17/21 Discharge Date: 04/25/21 Disposition: ROUTINE DISCHARGE Discharge Condition: FAIR Reason for Admission: Left fooot toes gangrene Brief History of Present Illness: History of Present Illness: 61-year-old gentleman with a history of diabetes mellitus, hypertension and hyperlipidemia, history of left big toe amputation secondary to gangrene was referred to the emergency department by his surgeon Dr. Martin for evaluation and admission for gangrene of the left second and third toes. Dr. Martin is planning amputation. Patient with a history of peripheral vascular disease status post multiple vascular interventions on the left leg. He has diabetes which is controlled with Metformin and insulin. Patient reports intermittent pain in the left foot. He denied any fever or anorexia. Blood work in the ED is unremarkable except anemia with hemoglobin 10 and hyperglycemia. Patient is hospitalized for further management. Allergies codeine Allergy (Mild, Verified 08/09/20 08:05) tachycardia and nightmares Home Medications: Metformin HCl 1,000 mg PO BID 04/15/17 Ramipril [Altace] 10 mg PO DAILY 04/15/17 Ascorbic Acid [Vitamin C*] 500 mg PO DAILY 06/11/20 Cholecalciferol (Vitamin D3) [Vitamin D3] 1,000 unit PO DAILY 06/11/20 Docosahexanoic AC/Epa [Fish Oil 1,000 MG CAP] 1,000 mg PO DAILY 06/11/20 Ferrous Sulfate [Iron] 325 mg PO DAILY 06/11/20 Insulin Glargine,Hum.rec.anlog [Lantus] 70 unit SQ BIDP PRN 06/11/20 Vitamin B Complex [Vitamin B Complex*] 1 cap PO DAILY 06/11/20 Ciprofloxacin HCl [Cipro 500 MG Tablet] 500 mg PO BID #14 tab 08/13/20 Tramadol HCl/Acetaminophen [Ultracet Tablet] 1 each PO Q4H PRN #20 tablet 08/13/20 Hospital Course: Hospital course Patient was admitted for left foot digit gangrene. He was evaluated by vascular surgery. He underwent a left BKA. Patient was initially started on antibiotics but was discontinued after the BKA. He remained stable doing fine and participating with PT. It was felt patient need acute rehab. He has been transferred to acute rehab today. Patient was noted earlier this morning with hypoglycemia with glucose down to 63 but improved with resuming p.o. meds. His dose of long-acting insulin has been reduced now. Continue Metformin. - Physical Exam General: Alert, In no apparent distress, Oriented x3 HEENT: PERRLA, Mucous membr. moist/pink, EOMI, Sclerae nonicteric Neck: Supple, JVD not distended Respiratory: Clear to auscultation bilaterally, Normal air movement Cardiovascular: No edema, Regular rate/rhythm, Normal S1 S2 Capillary refill: <2 Seconds Gastrointestinal: Normal bowel sounds, Soft and benign, Non-distended, No tenderness Musculoskeletal: No swelling, s/p left BKA , no stump edema , sutures clean Integumentary: No cyanosis, Other (Gangrene on the dorsum of the left foot.) Neurological: Normal strength at 5/5 x4 extr, Cranial nerves 3-12 intact Lymphatics: No axilla or inguinal lymphadenopathy Vital Signs/Physical Exam: Temp Pulse Resp BP Pulse Ox 97.5 F 82 23 H 146/70 H 99 04/25/21 08:00 04/25/21 08:00 04/25/21 08:00 04/25/21 08:16 04/25/21 08:00 Laboratory Data at Discharge: WBC 9.60 K/uL (4.3-10.9) 04/24/21 03:46 Hgb 9.3 g/dL (13.6-17.9) L 04/24/21 03:46 Hct 26.4 % (39.6-49.0) L 04/24/21 03:46 Plt Count 461 K/uL (152-406) H 04/24/21 03:46 PT 14.1 SECONDS (9.5-12.5) H 04/18/21 06:09 INR 1.22 04/18/21 06:09 Sodium 134 mmol/L (136-145) L 04/24/21 03:46 Potassium 4.7 mmol/L (3.5-5.1) 04/24/21 03:46 BUN 21 mg/dL (7-18) H 04/24/21 03:46 Creatinine 0.93 mg/dL (0.55-1.3) 04/24/21 03:46 Glucose 119 mg/dL (74-106) H 04/24/21 03:46 Phosphorus 4.1 mg/dL (2.5-4.9) 04/22/21 05:05 Magnesium 1.8 mg/dL (1.8-2.4) 04/22/21 05:05 Total Bilirubin 0.3 mg/dL (0.2-1.0) 04/17/21 09:21 AST 15 U/L (15-37) 04/17/21 09:21 ALT 21 U/L (12-78) 04/17/21 09:21 Alkaline Phosphatase 77 U/L (45-117) 04/17/21 09:21 Home Medications: Amlodipine Besylate 1 tab PO DAILY 04/17/21 Clopidogrel Bisulfate [Clopidogrel] 1 tab PO DAILY 04/17/21 Metformin HCl 1 tab PO BID 04/17/21 Pravastatin Sodium 1 tab PO BEDTIME 04/17/21 Insulin Glargine,Hum.rec.anlog [Toujeo Solostar] 12 unit SQ SEECOM #1 04/25/21 New Medications: Insulin Glargine,Hum.rec.anlog [Toujeo Solostar] 12 unit SQ SEECOM #1 Diet: ADA Activity: Ad phil Followup: Ethan Chatterjee MD [Primary Care Provider] - Physician Review: Patient Assessed, Agree with Above Assessment and Plan Time spent managing pt's care (in minutes): 35
[2021-04-25] MEDS: OXYCODONE HCL 5 MG TAB PO PRN (15:55)
--- NOTE | 2021-04-25 19:16 | P.PN ---
Subjective Date of Service: 04/25/21 Chief Complaint: Left fooot toes gangrene Subjective: No new changes (plan fro dc to acute rehab today) Physical Examination - Vital Signs Temperature: 98.8 F Blood Pressure: 141/67 Pulse: 97 Respirations: 18 Pulse Ox (%): 97 Assessment And Plan Physician Review: Patient Assessed, Agree with Above Assessment and Plan Physician Review Additional Text: 04/24/21 14:22 - Physical Exam General: Alert, In no apparent distress, Oriented x3 HEENT: Mucous membr. moist/pink Neck: JVD not distended Respiratory: Clear to auscultation bilaterally, Normal air movement Cardiovascular: No edema, Regular rate/rhythm, Normal S1 S2 Gastrointestinal: Soft and benign, Non-distended, No tenderness Musculoskeletal: No swelling, Other (Left BKA) Neurological: Normal strength at 5/5 x4 extr Assessment And Plan - Current Problems (Diagnosis) (1) Gangrene of toe of left foot Current Visit: Yes Status: Acute (2) Diabetes mellitus type 2 in obese Current Visit: Yes Status: Acute (3) Hypertension Current Visit: No Status: Acute (4) Diabetic foot ulcer Current Visit: No Status: Chronic (5) Cellulitis Current Visit: No Status: Resolved (6) Anemia Current Visit: Yes Status: Acute - Plan ready for inpatient rehab placement. Noted with transient hypoglycemia but resolved with decrease insulin dosage Reduce long-acting insulin further today Initially discharged to acute rehab but prior to discharge noted with preadmission Covid screen to be positive. We discussed with case management regarding plans since clinically stable off for inpatient care now Pain management as needed-around oxycodone Continue home medications for hypertension and hyperlipidemia. Anemia stable. Off antibiotics. Continue PT. 04/25/21 19:15
[2021-04-25] MEDS: ATORVASTATIN 10 MG TAB PO SCH (20:32)
[2021-04-26 00:24] VITALS: TEMP 97
[2021-04-26 03:43] VITALS: BP 120/60
[2021-04-26 03:58] LABS: Absolute Lymphocytes (CBC) 1.9 K/uL (0.7-4.9); Hematocrit 27.9 % (39.6-49.0); Lymphocytes % 22.6 % (15.3-44.8); MPV 6.7 fL (7.6-11.3); RBC Red Blood Cell Count 3.15 M/uL (4.33-5.43)
[2021-04-26 04:23] LABS: Albumin 2.4 g/dL (3.4-5.0); Magnesium 1.9 mg/dL (1.8-2.4); Potassium 4.2 mmol/L (3.5-5.1); Prealbumin 15.1 mg/dL (20-40)
[2021-04-26] MEDS: INSULIN -REGULAR HUMAN 50 UNIT/0.5 ML ML SQ SCH (07:30)
== END 2021-04-26 08:37 | DRG 239 ==
LOC: ER 08:48 → ERHOLD 12:03 → 2ND 14:59 → 4TH 04-25 18:11
PROVIDERS: ADMIT Internal Medicine; ATTEND Internal Medicine
PROC: 0Y6J0Z1 Detachment at Left Lower Leg, High, Open Approach (ICD-10-PCS; principal; 2021-04-19 07:30)
DX: E10.52 Type 1 diabetes mellitus with diabetic peripheral angiopathy with gangrene (principal); U07.1 COVID-19; L03.90 Cellulitis, unspecified; I10 Essential (primary) hypertension; D64.9 Anemia, unspecified; E78.5 Hyperlipidemia, unspecified; E10.65 Type 1 diabetes mellitus with hyperglycemia; E10.621 Type 1 diabetes mellitus with foot ulcer; L97.529 Non-pressure chronic ulcer of other part of left foot with unspecified severity; E66.9 Obesity, unspecified; Z68.27 Body mass index [BMI] 27.0-27.9, adult; Z79.84 Long term (current) use of oral hypoglycemic drugs; Z79.4 Long term (current) use of insulin; Z88.5 Allergy status to narcotic agent; Z89.412 Acquired absence of left great toe; Z79.899 Other long term (current) drug therapy
CPT/HCPCS: 36415; 71045; 80048; 80076; 80202; 81003; 82040; 82947; 83735; 83880; 84100; 84132; 84134; 84484; 85025; 85610; 88307; 88311; 94010; 96361; 96374; 96375; 97116; 97161; 97530; 99215; 99283; J0692; J1100; J1644; J2250; J2370; J2405; J2704; J3010; J3370; J7030; J7040; U0003

== ENCOUNTER 2021-04-24 14:01 | Inpatient (IN) | payer BC ==
--- NOTE | 2021-04-25 10:46 | R.PREADM ---
PRE-ADMISSION SCREENING FORM SCREENING DATE AND TIME 04/23/2021 11:13 (CHIEF STRATEGY OFFICER) ANTICIPATED REHAB ADMISSION DATE 04/25/2021 REFERRING FACILITY [facility] REFERRAL DATE AND TIME 04/22/2021 11:13 (CHIEF STRATEGY OFFICER) REFERRAL ROOM# 207 ACUTE ADMIT DATE 04/17/2021 Previous Rehabilitation(s): No. ACUTE MANAGER INVESTMENT BANKING/DC MORTGAGE LOAN ORIGINATOR Marisol ATTENDING PHYSICIAN RAJ AGUIRRE MD REFERRING PHYSICIAN RAJ LUDWIG REHAB FACILITY [facility] CLINICAL LIAISON Dominik Fenton PHYSICIAN REVIEWER Dr. Enrico Castillo M.D. MR# [id number] NAME DANIS RUIZ ADDRESS [address] PHONE [facility] [place] [address] DATE OF 1960 AGE 61 SSN# [id number] GENDER male MARITAL STATUS ADMIT FROM 02 - [facility] PRE-HOSPITAL LIVING SETTING 01 - Home (private home/apt. board/care, assisted living, care home, transitional living) HOME TYPE AND DETAILS Type of home: single family house # of steps to enter the residence: 0 # of steps within the residence: 0 # of levels in the residence: 1 PRE-HOSPITAL LIVING WITH Family/Relatives FAMILY SUPPORT Yes PRIMARY FAMILY CONTACT NAME JOYCE HARGROVE PRIMARY FAMILY CONTACT PHONE PRIMARY FAMILY CONTACT RELATIONSHIP PHONE PRIMARY FAMILY CONTACT ON ADM.? no IS PRIMARY FAMILY CONTACT AUTH. REP.? no 1ST EMERGENCY CONTACT JOYCE HARGROVE 1ST CONTACT PHONE 1ST CONTACT RELATIONSHIP PHONE 1ST CONTACT ON ADM. no IS 1ST CONTACT AUTH. REP.? no PHONE 2ND CONTACT ON ADM.? no PATIENT EMPLOYMENT STATUS Employed [employer] PAYOR INFORMATION: 1ST PAYOR NAME Min [place] Min [facility] 1ST PAYOR PHONE [phone] 1ST PAYOR 1ST PAYOR [employer] [id number] INJURY/ILLNESS DUE TO ACCIDENT? No ANOTHER GREEN PARTY RESPONSIBLE? No PRIMARY REHAB/ACUTE DIAGNOSIS: Left Transtibial Amputation ONSET DATE 04/17/2021 REHAB IMPAIRMENT CATEGORY (ROHIT): 10 Amputation, lower extremity (Amp/LE) MEETS 60% rule AFFECTED EXTREMITIES: LLE PRIMARY DIAGNOSIS-RELATED SURGERIES: Left Transtibial Amputation INTERVENTIONS: - DIABETES Diet will be customized to manage diabetic needs. - HYPERTENSION Blood pressure will be regularly assessed and medications administered as per physician recommendshirley montalvo. - Surgical Site Management regular assessment of surgical site and appropriate dressing changes as warranted by physician RISK FOR COMPLICATIONS: - Hypertension Blood pressure will be monitored regularly and medications administer per MD to manage effective bloo d pressure. - Diabetic Complications Regular monitoring and management of blood glucose levels. pt will receive a specialized diet to help manage blood glucose levels - Infection monitoring residual limb for any signs of infection regular dressing changes and limb management - DVT PTT and INR will be monitored to effectively mitigate risk for development of DVT or PE while here. Medications will be administered as per MD Mobility training and regular exercise - Pain Clinical staff will assess patient's pain level every shift per protocol to monitor for pain manageme nt effectiveness Medications will be given and the pain level reassessed. Clinical Staff may employ other methods such as: massage, distraction, decrease stimulus, etc. as needed Educate patient on pain management strategies - Skin Breakdown Nursing will assess skin daily using assessment tool and will place on Skin Breakdown Precautions as Indicated per protocol pt has PVD and is high risk for complications in event of skin breakdown - Falls Patient will be evaluated for Fall Precautions and will be placed on Fall Precautions as indicated pe r protocol. pt has a L transtibial amputation and requires gait training and balance training to reduced fall ris k SUMMARY OF ACUTE HOSPITALIZATION: Pt. is a 61 yo Right-handed male. On 04/17/2021 he was admitted to [facility] with diagnosis Left Transtibial Amputation. His impairment category is Amputation of Limb 05 - Unilateral Lower Limb Below the Knee (BK) (05.4). Pre-morbidly, Pt. was independent/mod-I in Locomotion, Safety Awareness, Social Cognition, and Balanc e; and he had good Transfers Control, Sphincter Control, Self-Care, Endurance, and Communication. Currently, he has deficits of Locomotion, Safety Awareness, Social Cognition, Balance, Transfers Cont rol, Sphincter Control, Self-Care, Communication, and Endurance. Pt. is now referred to [facility] for acute in-patient rehabilitation in order to maximize patient's functional independence in activities of daily living, strength, ROM, and mobi lity. Patient has realistic goal of being discharged at assistance level 7-Ind to reside at Home with Fami ly/Relatives. CONSULT: Consult Bridal Sales Consultant for prosthesis construction PAST MEDICAL HISTORY DM HTN HYPERLIPIDEMIA LEFT TOE DEBRIDEMENT PERIPHERAL VASCULAR DISEASE GANGRENE Anemia Obesity Diabetic Foot Ulcer PAST SURGICAL HISTORY: LEFT TOE DEBRIDEMENT MEDICATION ALLERGIES: CODINE ENVIRONMENTAL ALLERGIES: - Substance Allergies None Known - Other Allergies None Known CODE STATUS: Full code WEIGHT/HEIGHT/BMI: WEIGHT 210 lbs HEIGHT 6' 0" BMI 28.5 DIET: - Diet Type Regular - Diet - Solid Texture Regular - Diet - Liquid Texture Regular - Tube Feed N/A SKIN DIAGRAM: Incision on Right knee; extent - small; stage - NS(Not Stageable). Treatment - Per Physician's Orders . L transtibial amputation with surgical site that requires monitoring and management REVIEW OF SYSTEMS: - Gen Alert and awake Lying in bed No apparent distress Oriented to: person, time, and place - Vital Signs Temperature: 97.6 F SBP/DBP: 146/70 Pulse: 72 Resp: 16 Vital signs stable, afebrile - CVS RRR VITAL SIGNS Temperature: 97.6 F -04/24/21 SBP/DBP: 146/70 Pulse: 72 Resp: 16 Vital signs stable, afebrile MEDICATIONS/TREATMENT: Other- See attached MAR (Medication Administration Record). CURRENT SPHINCTER CONTROL: Pre-hospital bladder status: unspecified # of bladder accidents in the last 7 days prior to screenin Pre-hospital bowel status: unspecified # of bowel accidents in the last 7 days prior to screenin Last Bowel Movement Date: 04/23/2021 CURRENT LOCOMOTION STATUS: distance walked 52feet with rolling walker DETAILED CURRENT FUNCTIONAL STATUS: - Bladder accident frequency: 7-Ind - No accidents in the past 7 days - Bowel accident frequency: 7-Ind - No accidents in the past 7 days - Walking score based on distance walked: 0(N/A) - Wheelchair score based on distance traveled: 0(N/A) QI SCORES: - Self-Care A. Eating 06-Independent B. Oral hygiene 03-Partial/moderate assistance C. Toileting hygiene 03-Partial/moderate assistance E. Shower/bathe self 03-Partial/moderate assistance F. Upper body dressing 03-Partial/moderate assistance G. Lower body dressing 03-Partial/moderate assistance H. Putting on/taking off footwear 88-Not attempted due to medical condition or safety concerns - Mobility A. Roll left and right 04-Supervision or touching assistance B. Sit to lying 03-Partial/moderate assistance C. Lying to sitting on side of bed 03-Partial/moderate assistance D. Sit to stand 03-Partial/moderate assistance E. Chair/ebo-ou-huyap transfer 03-Partial/moderate assistance F. Toilet transfer 03-Partial/moderate assistance G. Car transfer 88-Not attempted due to medical condition or safety concerns I. Walk 10 feet 03-Partial/moderate assistance J. Walk 50 feet with two turns 03-Partial/moderate assistance K. Walk 150 feet 88-Not attempted due to medical condition or safety concerns L. Walking 10 feet on uneven surfaces 88-Not attempted due to medical condition or safety concerns M. 1 step (curb) 88-Not attempted due to medical condition or safety concerns N. 4 steps 88-Not attempted due to medical condition or safety concerns O. 12 steps 88-Not attempted due to medical condition or safety concerns P. Picking up object 88-Not attempted due to medical condition or safety concerns R. Wheel 50 feet with two turns 88-Not attempted due to medical condition or safety concerns S. Wheel 150 feet 88-Not attempted due to medical condition or safety concerns - Bladder and Bowel Bladder continence Bowel continence - Endurance Fair - Balance Fair - Safety Awareness Fair CURRENT FUNC. DEFICITS: Mobility, Endurance, Balance, Safety Awareness, and Self-Care CURRENT / PREVIOUS ASSISTIVE DEVICES: Rolling Walker Wheelchair HISTORY OF FALLS. HAS THE PATIENT HAD TWO OR MORE FALLS IN THE PAST YEAR OR ANY FALL WITH INJURY IN T HE PAST YEAR?: No PRIOR SURGERY. DID THE PATIENT HAVE MAJOR SURGERY DURING THE 100 DAYS PRIOR TO ADMISSION?: No THERAPY NOTES FROM ACUTE CARE: Attached. SPECIAL NEEDS: - Safety Concerns Skin breakdown precautions needed due to skin breakdown risk PRECAUTIONS: - Weight Bearing Precaution NWB left LE PATIENT NEEDS ACTIVE AND ONGOING THERAPEUTIC INTERVENTION OF MULTIPLE THERAPY DISCIPLINES, INCLUDING: - Orthotics/Prosthetics Prosthetic Evaluation. Evaluate and Treat. - Dietary and Nutrition Adequate Nutrition. Nutritional Education. Nutritional Supplements. Evaluate and Treat. - Occupational Therapy Cognitive Retraining. Visual Perceptual Training. ADL Training. Evaluate and Treat. Safety Awareness. Household Tasks. Patient/Family Education. Adaptive Equipment. - Speech Therapy Memory Strategies. Evaluate and Treat. Receptive Language Skills. Speech Intelligibility Training. - Physical Therapy Mobility Training. Gait Training. Safety Awareness. Transfer Training. Balance Training. Evaluate and Treat. LE Strengthening. Patient/Family Education. PATIENT NEEDS CLOSE MEDICAL SUPERVISION BY A REHABILITATION PHYSICIAN FOR: Coordination of Treatment Team Medical and Co-Morbidity Management Diabetes Management Pain Management Wound Care DVT Management Post-Op Complications PATIENT REQUIRES 24X7 REHAB NURSING FOR MEDICAL AND FUNCTIONAL MGT. OF THE FOLLOWING DEFICITS: Disease Management Medication Management Patient/Family Education Providing Safe Environment Pain Management ADL's Transfers PATIENT REQUIRES INTENSIVE, COORDINATED INTERDISCIPLINARY APPROACH TO REHAB: Arranging Home Equipment/Services Discharge Planning Family Intervention/Training Associate Professor Computer Science/Case Management PATIENT REHAB POTENTIAL: Cherie RUIZ is able and expected to receive 3 hours of individualized therapy daily on at least 5 of every 7 days Cherie Sweeney prognosis for significant practical improvement within a reasonable period of time appe ars Good Expected level of measurable improvement will be of a practical value to Cherie RUIZ's functional cap acity or adaptations to impairments Has a viable Discharge Plan Medically appropriate; condition is sufficiently stable to participate in intensive rehab program DISCHARGE PLAN: - Estimated Length of Stay (days) 11. - Consensus on plan Discharge plan has been discussed with primary caregiver. Patient/Family is in agreement with the kailey n. Primary caregiver is in agreement with the plan. - Patient/Family Goals Return home independently. - Planned Living Setting Upon Discharge Home, to live with Family/Relatives. Transitional Living. RECOMMENDED CARE LEVEL: IRF RECOMMENDATION DETAILS: Recommended Admission to Comprehensive Rehabilitation Program to Increase Functional [place] SCREENER'S COMPLETENESS CONFIRMATION: - Screening Confirmation The patient data collection on this preadmission screening form is finished PHYSICIANS REVIEW AND ADMISSION DETERMINATION Admit - Based on my review of the Pre-Admission Screening results, in my medical judgment and experie nce, I concur with the findings and recommend admission to [facility], as this patient requires an IRF level of care. SIGNATURE PANEL: Still Operator - [electronically] signed by Dominik Fenton on 04/25/2021 at 08:56 (CHIEF STRATEGY OFFICER) Still Operator - [electronically] signed by Juanito العلي PT on 04/25/2021 at 09:18 (CHIEF STRATEGY OFFICER) Physician Reviewer - [electronically] signed by Dr. Enrico Castillo M.D. on 04/25/2021 at 10:45 (CHIEF STRATEGY OFFICER )
--- OUTSIDE RECORDS SUMMARY | 2021-04-26 08:40 | XMS REPORT | Continuity of Care Document ---
:1960 Author Organization [facility] t Address 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 U nivers epidural epidural 1-13 ity of space of space of 00:00: [place] thoracic thoracic 00 Medica l spine spine Branch Osteomyeli Osteomyeli Disease Active 2020-03 U nivers tis of tis of 1-13 ity of thoracic thoracic 00:00: [place] spine spine 00 Medical Branch E44.0 E44.0 Disease Active 2020-03 Univers Moderate Moderate 1-11 ity of protein protein 00:00: [place] calorie calorie 00 Medical malnutriti malnutriti Br anch on on Exudative Exudative Disease Active 2020-03 Uni vers pleural pleural 1-10 ity of effusion effusion 00:00: [place] 00 Medical Branch Intractabl Intractabl Disease Active 2020-03 U nivers e back e back 1-10 ity of pain pain 00:00: [place] 00 Medical Branch Osteomyeli Osteomyeli Disease Active 2020-03 Overview : Univers tis of tis of -09 Formattin ity of metatarsal metatarsal 00:00: g of this [place] 00 note Medical might be Branch different from the original. Added automatic ally from request for surgery [id number] Allergies, Adverse Reactions, Alerts Allergy Allergy Status Severity Reaction(s) Onset Inactive Treating Comm ents Source Name Type Date Date Clinician Malachi Aponte Active Unknown - 2020-03 Tachycard U nivers ty to See comments 03-17 ia and ity of adverse 00:00: nightmare [place] reaction 00 s Medical s Branch Social History Social Habit Start Date Stop Date Quantity Comments Source Exposure to Not sure Hector of SARS-CoV-2 [place] Medical (event) Branch History of Cigarette Smoker Universi ty of tobacco use [facility] Tobacco use and 2017-04-11 2017-04-11 Never used Universit y of exposure 00:00:00 00:00:00 [facility] Sex Ass[birth year] Universit y of 00:00:00 00:00:00 [facility] Smoking Status Start Date Stop Date Source Former smoker 2017-04-11 00:00:00 2017-04-11 00:00:00 Universi ty of [facility] Medications Ordered Filled Start Stop Current Ordering Indication Dosage Frequency Signature Comments Components Source Medication Medication Date Date Medication? Clinician (SIG) Name Name doxycycline 2021- Yes [id number] 100mg Take 1 Univers hyclate 100 1-10 03-22 capsule by i ty of mg capsule 00:00: 04:59 mouth [place] 00 :00 every 12 Medical (twelve) Branch hours for 70 days. aspirin 2020-03 Yes 81mg Take 81 mg Univ ers (ASPIR-81) 2-13 by mouth ity o f 81 mg EC 08:20: daily. [place] tablet [address] [place] [address] aspirin 2020-03 Yes 81mg Take 81 mg Univ ers (ASPIR-81) 2-13 by mouth ity o f 81 mg EC 08:20: daily. [place] tablet [address] [place] [address] aspirin 2020-03 Yes 81mg Take 81 mg Univ ers (ASPIR-81) 2-13 by mouth ity o f 81 mg EC 08:20: daily. [address] metFORMIN 2020-03 Yes 1000mg Take 1,000 Univers 1,000 mg 2-13 mg by ity of tablet 08:18: mouth 2 [place] [address] [facility] times [place] daily with meals. RAMIPRIL 2020-03 Yes 10mg Take 10 mg Uni vers (ALTACE 2-13 by mouth ity of ORAL) 08:18: daily. [address] metFORMIN 2020-03 Yes 1000mg Take 1,000 Univers 1,000 mg 2-13 mg by ity of tablet 08:18: mouth 2 [place] [address] [facility] Medical times [place] daily with meals. RAMIPRIL 2020-03 Yes 10mg Take 10 mg Uni vers (ALTACE 2-13 by mouth ity of ORAL) 08:18: daily. [address] metFORMIN 2020-03 Yes 1000mg Take 1,000 Univers 1,000 mg 2-13 mg by ity of tablet 08:18: mouth 2 [place] [address] [facility] times [place] daily with meals. RAMIPRIL 2020-03 Yes 10mg Take 10 mg Uni vers (ALTACE 2-13 by mouth ity of ORAL) 08:18: daily. [address] insulin 2020-03 Yes [id number] 30U inject 30 U nivers glargine 1-20 Units ity of U-300 conc [place]TOU[place] MAX 00 skin 2 Medica l U-300 (two) Branch [facility]) times 300 unit/mL daily. (3 mL) InPn insulin 2020-03 Yes [id number] 30U inject 30 U nivers glargine 1-20 Units ity of U-300 conc [place] MAX 00 skin 2 Medica l U-300 (two) Branch [facility]) times 300 unit/mL daily. (3 mL) In insulin 2020-03 Yes [id number] 30U inject 30 U nivers glargine 1-20 Units ity of U-300 conc [place] MAX 00 skin 2 Medica l U-300 (two) Branch [facility]) times 300 unit/mL daily. (3 mL) In rifAMPin 2020-03- Yes [id number] 300mg Take 1 Univers 300 mg 20 04-27 capsule by ity of capsule 00:00: 05:59 mouth 2 [place] 00 :00 (two) Medical times Branch daily for 90 days. DULoxetine 2020-03- Yes [id number] 60mg Take 1 Univers 60 mg 03-28 capsule by ity of capsule 00:00: 05:59 mouth [place] 00 :00 daily for Medical 90 days. Branch rifAMPin 2020-03- Yes [id number] 300mg Take 1 Univers 300 mg 03-28 capsule by ity of capsule 00:00: 05:59 mouth 2 [place] 00 :00 (two) Medical times Branch daily for 90 days. DULoxetine 2020-03- Yes [id number] 60mg Take 1 Univers 60 mg 03-28 capsule by ity of capsule 00:00: 05:59 mouth [place] 00 :00 daily for Medical 90 days. Branch rifAMPin 2020-03- Yes [id number] 300mg Take 1 Univers 300 mg -20 04-27 capsule by ity of capsule 00:00: 05:59 mouth 2 [place] 00 :00 (two) Medical times Branch daily for 90 days. DULoxetine 2020-03- Yes [id number] 60mg Take 1 Univers 60 mg -20 04-27 capsule by ity of capsule 00:00: 05:59 mouth [place] 00 :00 daily for Medical 90 days. Branch doxycycline 2020-03- No [id number] 100mg Take 1 Univers hyclate 100 03-28-10 capsule by i ty of mg capsule 00:00: 00:00 mouth [place] 00 :00 every 12 Medical (twelve) Branch hours for 90 days. clopidogreL 2020-03 Yes 1{tbl} 1 tablet Univers 75 mg 0-06 daily. ity of tablet 00:00: [place] Medical Branch clopidogreL 2020-03 Yes 1{tbl} 1 tablet Univers 75 mg 0-06 daily. ity of tablet 00:00: [place] Medical Branch clopidogreL 2020-03 Yes 1{tbl} 1 tablet Univers 75 mg 0-06 daily. ity of tablet 00:00: [place] [address] Medical Branch Immunizations Ordered Filled Immunization Date Status Comments [facility] e Immunization Name Name Influenza Virus 2021-01-26 Completed Universit y of Vaccine [facility] IM, 00:00:00 [place] Me dical Preserv and ABX Branch Free 6 MO-64 YRS Influenza Virus 2021-01-26 Completed Universit y of Vaccine [facility], 00:00:00 [place] Me dical Preserv and ABX Branch Free 6 MO-64 YRS Influenza Virus 2021-01-26 Completed Universit y of Vaccine [facility] IM, 00:00:00 [facility] dical Preserv and ABX Branch Free 6 [place]-64 YRS Vital Signs Vital Name Observation Time Observation Value Comments Source Systolic blood 2021-03-18 19:01:00 142 mm[Hg] Univer sity of pressure [facility] Diastolic blood 2021-03-18 19:01:00 82 mm[Hg] Unive rsity of pressure [facility] Heart rate 2021-03-18 19:01:00 97 /min [facility] Body temperature 2021-03-18 19:00:00 36.67 Rain [facility] 2021-03-18 19:00:00 18 /min [facility] Body height 2021-03-18 19:00:00 182.9 cm [facility] Body weight 2021-03-18 19:00:00 96.163 kg [facility] BMI 2021-03-18 19:00:00 28.75 kg/m2 [facility] Procedures Procedure Date / Time Performing Clinician Source Performed AUTHORIZATION FOR 2021-03-04 06:01:00 Doctor Unassigned, No Univ [facility] RELEASE OF PHI Name Medical Branch Encounters Start End Encounter Admission Attending Care Care Encounter Source Date/Time Date/Time Type Type Clinicians Facility Department ID 2021-04-[address] [facility] [id number] [facility] 14:05:47 [id number] 2021-03-18 2021-03-18 Office Yadiel Alvarado [facility] [id number] Univers 13:00:00 13:30:00 Visit Neno Caraballo [facility] [id number] 10 ity of CL[place]ICS [id number] [id number] [facility] 089 Branch 2021-03-04 2021-03-04 Orders Doctor NATALIE [id number] Univers 00:00:00 00:00:00 Only Unassigned, SHEEBA [id number] ity of [facility] 4.2.7.2.686 Philipp as [id number] [facility] 009 Branch 2021-02-19 2021-02-19 [facility] [id number] Univers 00:00:00 00:00:00 [facility] [id number] ity of CL[place]ICS [id number] [id number] [facility] 205 Branch 2021-01-07 2021-01-[address] [facility] [id number] 2021-01-03 2021-01-[address] [facility] [id number] 2021-01-02 2021-01-[address] [facility] [id number] Results This patient has no known results.
--- NOTE | 2021-04-26 09:53 | P.RH.PN ---
Estimated Length of Stay: 10 Expected Discharge Date: 05/03/21 Discharge Disposition Plan: Home Family Support: Yes Chick Grader Goal: Mobility, Transfers, Self Care Physician Update: He will be evauated by PT and OT. Labs were reviewed and are stable. He is covid-19 positive and on the 4th floor. Summary: Patient's care plan and fpc goals have been reviewed and revised as necessary. Please see the Rehabilitation Signature page for all necessary signatures.
[2021-04-26] MEDS ORDERED: ACETAMINOPHEN 500 MG TAB PO PRN (13:01)
[2021-04-26] MEDS ORDERED: ONDANSETRON 4 MG/2 ML VIAL IV PRN (13:02)
[2021-04-26] MEDS: OXYCODONE HCL 5 MG TAB PO PRN (13:07)
[2021-04-26] MEDS: INSULIN -REGULAR HUMAN 50 UNIT/0.5 ML ML SQ SCH ×2 (13:52→18:05)
--- NOTE | 2021-04-26 13:54 | R.HP ---
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 board/care, assisted living, long-term, transitional living) PRE-HOSPITAL LIVING WITH Family/Relatives ENCOUNTER PHYSICIAN: Dr. Enrico Castillo M.D. 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 is a 61 yo Right-handed male. On 04/17/2021 he was admitted to [facility] with diagnosis Left Transtibial Amputation. His impairment category is Amputation of Limb 05 - Unilateral Lower Limb Below the Knee (BK) (05.4). Pre-morbidly, Pt. was independent/mod-I in Locomotion, Safety Awareness, Social Cognition, and Balanc e; and he had good Transfers Control, Sphincter Control, Self-Care, Endurance, and Communication. Currently, he has deficits of Locomotion, Safety Awareness, Social Cognition, Balance, Transfers Cont rol, Sphincter Control, Self-Care, Communication, and Endurance. Pt. is now referred to [facility] for acute in-patient rehabilitation in order to maximize patient's functional independence in activities of daily living, strength, ROM, and mobi lity. Patient has realistic goal of being discharged at assistance level 7-Ind to reside at Home with Fami ly/Relatives. MEDICATION ALLERGIES: CODINE ENVIRONMENTAL ALLERGIES: - Substance Allergies None Known - Other Allergies None Known PAST MEDICAL HISTORY: DM HTN HYPERLIPIDEMIA LEFT TOE DEBRIDEMENT PERIPHERAL VASCULAR DISEASE GANGRENE Anemia Obesity Diabetic Foot Ulcer PAST SURGICAL HISTORY: LEFT TOE DEBRIDEMENT SOCIAL HISTORY: - Home Living Family/Relatives REVIEW OF SYSTEMS: - Gen No Chills Fatigue No Fever - Eyes No Double Vision No itchiness - ENMT No Difficulty Swallowing - CVS No Chest Discomfort No Chest Pain Fatigue No Weight Gain - Resp No Cough No Shortness of Breath - GI Continent No Abdominal Pain Constipation No Diarrhea - Continent No Kidney Pain No Painful Urination No Urinary Urgency - MSK Joint Pain Muscle Cramps Stiffness - Skin No Itching No Rash No Suspicious Lesions - Neuro Coordination Difficulty No Difficulty with Concentration No Memory Loss No Seizures Weakness - Psych No Anxiety No Depression No HIV Exposure No Persistent Infections No Seasonal Allergies - Endo No Cold/Heat Intolerance No Excessive Hunger No Excessive Thirst No Excessive Urination PHYSICAL EXAM - Gen Alert and awake Lying in bed No apparent distress Oriented to: person, time, and place - Skin No skin breakdown. No abnormalities - Eyes No abnormalities - ENMT No abnormalities - Neck No abnormalities - CVS RRR - Chest Clear - Resp Clear to auscultation - Abd Soft - GI Non distended Deferred - No abnormalities - Ext Left BKA good hemostasis, immobilizer in place - MSK 4+/5 weakness in right lower extremity - Neuro 4/5 strength right lower extremity. - Psych No abnormalities VITAL SIGNS Temperature: 97.6 F -04/24/21 SBP/DBP: 146/70 Pulse: 72 Resp: 16 NURSING: - Shower allowing shower - Skin care per protocol PRECAUTIONS: - Weight Bearing Precaution NWB left LE ACTIVITIES OOB only with supervision QI SCORES: - Self-Care A. Eating 06-Independent B. Oral hygiene 03-Partial/moderate assistance C. Toileting hygiene 03-Partial/moderate assistance E. Shower/bathe self 03-Partial/moderate assistance F. Upper body dressing 03-Partial/moderate assistance G. Lower body dressing 03-Partial/moderate assistance H. Putting on/taking off footwear 88-Not attempted due to medical condition or safety concerns - Mobility A. Roll left and right 04-Supervision or touching assistance B. Sit to lying 03-Partial/moderate assistance C. Lying to sitting on side of bed 03-Partial/moderate assistance D. Sit to stand 03-Partial/moderate assistance E. Chair/eiy-rc-shsep transfer 03-Partial/moderate assistance F. Toilet transfer 03-Partial/moderate assistance G. Car transfer 88-Not attempted due to medical condition or safety concerns I. Walk 10 feet 03-Partial/moderate assistance J. Walk 50 feet with two turns 03-Partial/moderate assistance K. Walk 150 feet 88-Not attempted due to medical condition or safety concerns L. Walking 10 feet on uneven surfaces 88-Not attempted due to medical condition or safety concerns M. 1 step (curb) 88-Not attempted due to medical condition or safety concerns N. 4 steps 88-Not attempted due to medical condition or safety concerns O. 12 steps 88-Not attempted due to medical condition or safety concerns P. Picking up object 88-Not attempted due to medical condition or safety concerns R. Wheel 50 feet with two turns 88-Not attempted due to medical condition or safety concerns S. Wheel 150 feet 88-Not attempted due to medical condition or safety concerns - Bladder and Bowel Bladder continence Bowel continence - Endurance Fair - Balance Fair - Safety Awareness Fair CURRENT FUNC. DEFICITS: Mobility, Endurance, Balance, Safety Awareness, and Self-Care MEDICATIONS: - Other See attached MAR (Medication Administration Record) ASSESSMENT: Pt. is a 61 yo Right-handed male.On 04/17/2021 he was admitted to [facility] with diagno sis Left Transtibial Amputation.His impairment category is Amputation of Limb 05 - Unilateral Lower Limb Below the Knee (BK) (05.4).Pre-morbidly, Pt. was independent/mod-I in Locomotion, Safety Awarene ss, Social Cognition, and Balance; and he had good Transfers Control, Sphincter Control, Self-Care, E ndurance, and Communication.Currently, he has deficits of Locomotion, Safety Awareness, Social Cognit ion, Balance, Transfers Control, Sphincter Control, Self-Care, Communication, and Endurance.Pt. is no w referred to [facility] for acute in-patient rehabilitation in order to maxim ize patient's functional independence in activities of daily living, strength, ROM, and mobility.- Re hab Goal Patient has realistic goal of being discharged at assistance level 7-Ind to reside at Home with Fami ly/Relatives. - Physical Therapy Gait dysfunction - to improve, our physical therapists will perform initial evaluation of pt's status upon admission and devise an individualized program for Gait Training, and Wheel Chair mobility Inability to transfer - to improve, our physical therapists will perform initial evaluation of pt's s tatus upon admission and devise an individualized program for Bed mobility Need for home safety evaluation - to improve, our physical therapists will perform initial evaluation of pt's status upon admission and devise an individualized program for Home Evaluation Need in caregiver upon discharge - to improve, our physical therapists will perform initial evaluatio n of pt's status upon admission and devise an individualized program for Caregiver Training New precaution - to improve, our physical therapists will perform initial evaluation of pt's status u felicia admission and devise an individualized program for Patient precaution education Poor balance - to improve, our physical therapists will perform initial evaluation of pt's status upo n admission and devise an individualized program for Balance Training Poor endurance - to improve, our physical therapists will perform initial evaluation of pt's status u felicia admission and devise an individualized program for Endurance Training Weakness - to improve, our physical therapists will perform initial evaluation of pt's status upon ad mission and devise an individualized program for Aquatic Therapy, Neuromuscular Reeducation, and Stre ngthening Achieving independence - to improve, our physical therapists will perform initial evaluation of pt's status upon admission and devise an individualized program for Community Reintegration Activities - Occupational Therapy ADL deficits - to improve, our occupation therapists will perform initial evaluation of pt's status u felicia admission and devise an individualized program for Bathing, Bed mobility, Community Reintegration , Cooking, Dressing, Eating, Fine Motor Skills, Grooming, Homemaking, Kitchen Mobility, Laundry, Jennifer ent Education, Safety Awareness, Splinting - Positioning, Transfers(Toilet, Tub, Shower), and Wheel C hair Management Cognitive deficits - to improve, our occupation therapists will perform initial evaluation of pt's st atus upon admission and devise an individualized program for Cognition - orientation Need for hospice care transitions coordinator - to improve, our occupation therapists will perform initial evaluation of pt's s tatus upon admission and devise an individualized program for Caregiver Training Weakness - to improve, our occupation therapists will perform initial evaluation of pt's status upon admission and devise an individualized program for Aquatic Therapy, Balance, Endurance, UE ROM, and U E strengthening MEDICAL PLAN: - Diet Type Start Regular - Diet - Liquid Texture Start Regular - Tube Feed Start N/A - Weight Bearing Precaution NWB left LE - Skin care per protocol - Other See attached MAR (Medication Administration Record) - N/A Perform Consult Certified Prosthetic for prosthesis construction - Diet - Solid Texture Regular - Shower shower DISCHARGE PLAN: - Estimated Length of Stay (days) 11. - Consensus on plan Discharge plan has been discussed with primary caregiver. Patient/Family is in agreement with the kailey n. Primary caregiver is in agreement with the plan. - Patient/Family Goals Return home independently. - Planned Living Setting Upon Discharge Home, to live with Family/Relatives. Transitional Living. 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
--- NOTE | 2021-04-26 13:55 | PAPE ---
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 Enrico Castillo M.D. ADMISSION DIAGNOSIS: Left Transtibial Amputation ONSET DATE 04/17/2021 POST-ADMISSION FUNCTIONAL/MEDICAL STATUS: - Bladder Same accident frequency: 7-Ind - No accidents in the past 7 days - Bowel Same accident frequency: 7-Ind - No accidents in the past 7 days - Walking Same score based on distance walked: 0(N/A) - Wheelchair Same score based on distance traveled: 0(N/A) STATUS CHANGE EVALUATION: No change in Functional or Medical Status is identified compared with Pre-Admission screening. PATIENT NEEDS CLOSE MEDICAL SUPERVISION BY A REHABILITATION PHYSICIAN FOR: Coordination of Treatment Team Medical and Co-Morbidity Management Diabetes Management Pain Management Wound Care DVT Management Post-Op Complications PATIENT REQUIRES 24X7 REHAB NURSING FOR MEDICAL AND FUNCTIONAL MGT. OF THE FOLLOWING DEFICITS: Disease Management Medication Management Patient/Family Education Providing Safe Environment Pain Management ADL's Transfers PATIENT REQUIRES INTENSIVE, COORDINATED INTERDISCIPLINARY APPROACH TO REHAB: Arranging Home Equipment/Services Discharge Planning Family Intervention/Training Senior Business Intelligence Analyst/Case Management LIST OF IDENTIFIED AND POTENTIAL PROBLEMS: Alteration in leisure activities Bladder, Incontinence Bowel, Incontinence Infection, Actual or Potential Mobility Impaired Pain, Alteration in Comfort Self Care Deficit Skin Integrity, Actual or Potential Urinary Tract Infection (UTI), Actual or Potential RISK FOR COMPLICATIONS - Hypertension Blood pressure will be monitored regularly and medications administer per MD to manage effective bloo d pressure. - Diabetic Complications Regular monitoring and management of blood glucose levels. pt will receive a specialized diet to help manage blood glucose levels. - Infection monitoring residual limb for any signs of infection. regular dressing changes and limb management. - DVT PTT and INR will be monitored to effectively mitigate risk for development of DVT or PE while here. M edications will be administered as per MD. Mobility training and regular exercise. - Pain Clinical staff will assess patient's pain level every shift per protocol to monitor for pain manageme nt effectiveness. Medications will be given and the pain level reassessed. Clinical Staff may employ other methods such as: massage, distraction, decrease stimulus, etc. as needed. Educate patient on pa in management strategies. - Skin Breakdown Nursing will assess skin daily using assessment tool and will place on Skin Breakdown Precautions as Indicated per protocol. pt has PVD and is high risk for complications in event of skin breakdown. - Falls Patient will be evaluated for Fall Precautions and will be placed on Fall Precautions as indicated pe r protocol. pt has a L transtibial amputation and requires gait training and balance training to redu jessica fall risk. INTERVENTIONS - DIABETES Diet will be customized to manage diabetic needs. - HYPERTENSION Blood pressure will be regularly assessed and medications administered as per physician adali montalvo. - Surgical Site Management regular assessment of surgical site and appropriate dressing changes as warranted by physician. PATIENT COULD BE AT RISK FOR COMPLICATIONS FROM ADVERSE MEDICAL CONDITIONS DUE TO HIS/HER COMORBIDITI ES AND THE RIGORS OF THE INTENSIVE REHABILLITATION PROGRAM. METHODS OR INTERVENTIONS TO AVOID COMPLIC ATIONS INCLUDE: - Deep Vein Thrombosis (DVT) Prophylaxis therapy for prevention . Sequential Compression Device (SCD). TE D Hose. - Bleeding Assess lab values and manage abnormalities. Nursing to teach precautions for anti-coagulation therapy . Wound to be assessed every shift. - Infection Clinical staff to assess and manage the signs and symptoms of infection including fever, redness, war mth, etc. - Urinary Tract Infection - Falls Patient will be evaluated for Fall Precautions and will be placed on Fall Precautions as indicated pe r protocol. - Skin Breakdown Nursing will assess skin daily using assessment tool and will place on Skin Breakdown Precautions as indicated per protocol. - Pain Clinical staff may employ non-medication methods such as massage, distraction, decrease stimulus, etc . as needed. Clinical staff will assess patient's pain level every shift per protocol to assess and e nsure pain management effectiveness. Medications will be given and the pain level re-assessed. PRELIMINARY PLAN OF CARE: - Physical Therapy Patient needs Physical Therapy for a daily minimum of 1.5 hours at least 5 out of 7 days, to improve: Mobility, Strengthening, Transfers, Stretching, ROM, Endurance, Ability to manage stairs, Gait, and Balance. - Rehabilitation Nursing Patient requires 24x7 Rehabilitation Nursing for: Pain Issues, Identifying and preventing risk factor s, Monitoring and reporting current medical conditions, Assisting with ambulation and transfer, Cherie ting with all ADL-s, Teaching patients about disease process and medications, Family teaching, Provid ing safe environment, Bowel and Bladder Issues, Skin Integrity, and Medication Management. Patient needs Senior Business Intelligence Analyst and/or Case Management for: Discharge Planning, Arranging Home Equipmen t or Services, and Family Interventions. - Dietary and Nutrition Services Patient needs Dietary and Nutrition Services for: Adequate Nutrition, Nutritional Supplements, and Nu tritional Education. - Occupational Therapy Patient needs Occupational Therapy for a daily minimum of 1.5 hours at least 5 out of 7 days, to impr ove Activities of Daily Living, including: Eating, Grooming, Bathing, Dressing, Toileting, Toilet Tra nsfers, Community Reintegration, Higher functional activities, Adaptive Equipment, Splinting, Househo ld Tasks, and Other activities as determined. QI SCORES: - Self-Care A. Eating 06-Independent B. Oral hygiene 03-Partial/moderate assistance C. Toileting hygiene 03-Partial/moderate assistance E. Shower/bathe self 03-Partial/moderate assistance F. Upper body dressing 03-Partial/moderate assistance G. Lower body dressing 03-Partial/moderate assistance H. Putting on/taking off footwear 88-Not attempted due to medical condition or safety concerns - Mobility A. Roll left and right 04-Supervision or touching assistance B. Sit to lying 03-Partial/moderate assistance C. Lying to sitting on side of bed 03-Partial/moderate assistance D. Sit to stand 03-Partial/moderate assistance E. Chair/hvy-nf-xzliw transfer 03-Partial/moderate assistance F. Toilet transfer 03-Partial/moderate assistance G. Car transfer 88-Not attempted due to medical condition or safety concerns I. Walk 10 feet 03-Partial/moderate assistance J. Walk 50 feet with two turns 03-Partial/moderate assistance K. Walk 150 feet 88-Not attempted due to medical condition or safety concerns L. Walking 10 feet on uneven surfaces 88-Not attempted due to medical condition or safety concerns M. 1 step (curb) 88-Not attempted due to medical condition or safety concerns N. 4 steps 88-Not attempted due to medical condition or safety concerns O. 12 steps 88-Not attempted due to medical condition or safety concerns P. Picking up object 88-Not attempted due to medical condition or safety concerns R. Wheel 50 feet with two turns 88-Not attempted due to medical condition or safety concerns S. Wheel 150 feet 88-Not attempted due to medical condition or safety concerns - Bladder and Bowel Bladder continence Bowel continence - Endurance Fair - Balance Fair - Safety Awareness Fair POTENTIAL FUNCTIONAL GOALS FOR PATIENT TO ACHIEVE BY DISCHARGE: - Safety Precaution Patient will remain free from falls or injury at time of discharge. - Bed Mobility Patient will perform bed mobility at 4-Fuentes level of assistance. - Transfers Patient will complete transfers from bed to chair at 4-Fuentes level of assistance. - Mobility Patient will ambulate 150 ft with 4-Fuentes level of assistance with RW. PATIENT REHAB POTENTIAL Cherie RUIZ is able and expected to receive 3 hours of individualized therapy daily on at least 5 of every 7 days Cherie RUIZ'gerber prognosis for significant practical improvement within a reasonable period of time appe ars Good Expected level of measurable improvement will be of a practical value to Cherie RUIZ's functional cap acity or adaptations to impairments Has a viable Discharge Plan Medically appropriate; condition is sufficiently stable to participate in intensive rehab program DISCHARGE PLAN: - Estimated Length of Stay (days) 11. - Consensus on plan Discharge plan has been discussed with primary caregiver. Patient/Family is in agreement with the kailey n. Primary caregiver is in agreement with the plan. - Patient/Family Goals Return home independently. - Planned Living Setting Upon Discharge Home, to live with Family/Relatives. Transitional Living. CONCLUSION ON REHABILITATION NECESSITY: I have evaluated patient's pre-admission functional status and, comparing it to the patient's post-ad mission functional status now, I conclude that the pre-admission assessment was accurate. Patient's c ondition on admission supports the medical necessity of admission to IR[facility]. It is safe to proceed with patient's therapy program. 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
[2021-04-26] MEDS ORDERED: HEPARIN 5000 UNIT/ML 1 ML VIAL SQ SCH (17:00)
[2021-04-26] MEDS: METFORMIN HCL 500 MG TAB PO SCH (17:36)
--- NOTE | 2021-04-26 17:54 | P.PN ---
Mr. Ma has tested positive for Covid-19. For infection control purposes, he will be housed in the acute Covid unit on the 4th floor. He will continue intensive inpatient rehabilitation in accordance with the Covid-19 emergency declaration blanket wavers for healthcare providers as updated February 04, 2021.
[2021-04-26] MEDS: GABAPENTIN 300 MG CAP PO SCH (20:40)
[2021-04-26] MEDS: ATORVASTATIN 10 MG TAB PO SCH (20:40)
[2021-04-26] MEDS: INSULIN GLARGINE 100 UNIT/ML SQ SCH (20:52)
[2021-04-27 04:15] LABS: Absolute Lymphocytes (CBC) 1.7 K/uL (0.7-4.9); Hematocrit 26.7 % (39.6-49.0); Lymphocytes % 22.4 % (15.3-44.8); MPV 6.9 fL (7.6-11.3); RBC Red Blood Cell Count 2.98 M/uL (4.33-5.43)
[2021-04-27 04:34] LABS: Albumin 2.4 g/dL (3.4-5.0); BUN Blood Urea Nitrogen 23 mg/dL (7-18); Bicarbonate 27 mmol/L (21-32); Glucose Level 64 mg/dL (74-106); Potassium 4.1 mmol/L (3.5-5.1); Prealbumin 15.8 mg/dL (20-40); Sodium Level 137 mmol/L (136-145)
[2021-04-27] MEDS: OXYCODONE HCL 5 MG TAB PO PRN ×2 (07:35→11:45)
[2021-04-27] MEDS: INSULIN GLARGINE 100 UNIT/ML SQ SCH ×2 (08:36→20:46)
[2021-04-27] MEDS: METFORMIN HCL 500 MG TAB PO SCH ×2 (08:37→16:59)
[2021-04-27] MEDS: GABAPENTIN 300 MG CAP PO SCH ×2 (08:37→20:45)
[2021-04-27] MEDS: CLOPIDOGREL 75 MG TABLET PO SCH (08:37)
[2021-04-27] MEDS: AMLODIPINE 5 MG TAB PO SCH (08:37)
[2021-04-27] MEDS: INSULIN -REGULAR HUMAN 50 UNIT/0.5 ML ML SQ SCH ×4 (08:38→21:00)
[2021-04-27 12:39] LABS: Urine Appearance CLEAR (Clear); Urine Bilirubin NEGATIVE (Negative); Urine Blood NEGATIVE (Negative); Urine Color YELLOW (Yellow); Urine Glucose TRACE (Negative); Urine Protein TRACE (Negative); Urine Specific Gravity 1.015 (1.005-1.030); Urine Urobilinogen 0.2 mg/dL (0.2-1.0)
--- NOTE | 2021-04-27 12:53 | PN ---
Date of Progress Note: 04/27/2021 Subjective: This patient is a rehab patient at this moment, although in the fourth floor due to hist ory of COVID. This is the case of a 61-year-old patient with below-knee amputation. Doing well. No complaint. Tolerating diet. Objective: Abdomen: Soft and depressible. Extremities: Good capillary refill. The amputation site dressings were changed today. Flaps are 10 0%. Lorenzo intact. No cellulitis. Dressings were changed. PALOMA drain was removed with minimal khushboo yun. Plan: Continue treatment per medical doctor. When he gets discharged, follow up in my office. We d id change the dressings p.r.n. ERIC/MODL Voice ID: [id number] Report ID: [id number]
[2021-04-27 12:57] LABS: Urine Bacteria NONE SEEN /HPF (NONE SEEN); Urine RBC <5 /HPF (NONE SEEN)
[2021-04-27] MEDS: ATORVASTATIN 10 MG TAB PO SCH (20:45)
[2021-04-28] MEDS: INSULIN -REGULAR HUMAN 50 UNIT/0.5 ML ML SQ SCH ×4 (07:30→20:22)
[2021-04-28] MEDS: INSULIN GLARGINE 100 UNIT/ML SQ SCH ×2 (07:51→20:22)
[2021-04-28] MEDS: CLOPIDOGREL 75 MG TABLET PO SCH (08:08)
[2021-04-28] MEDS: AMLODIPINE 5 MG TAB PO SCH (08:08)
[2021-04-28] MEDS: METFORMIN HCL 500 MG TAB PO SCH ×2 (08:08→16:12)
[2021-04-28] MEDS: GABAPENTIN 300 MG CAP PO SCH ×2 (08:08→20:21)
[2021-04-28] MEDS: OXYCODONE HCL 5 MG TAB PO PRN (09:51)
[2021-04-28] MEDS: ATORVASTATIN 10 MG TAB PO SCH (20:21)
[2021-04-28] MEDS: JUVEN PACKET PO SCH (20:22)
[2021-04-29] MEDS: GABAPENTIN 300 MG CAP PO SCH ×2 (08:28→19:54)
[2021-04-29] MEDS: METFORMIN HCL 500 MG TAB PO SCH ×2 (08:28→16:48)
[2021-04-29] MEDS: OXYCODONE HCL 5 MG TAB PO PRN (08:28)
[2021-04-29] MEDS: AMLODIPINE 5 MG TAB PO SCH (08:28)
[2021-04-29] MEDS: JUVEN PACKET PO SCH ×2 (08:28→19:55)
[2021-04-29] MEDS: CLOPIDOGREL 75 MG TABLET PO SCH (08:29)
[2021-04-29] MEDS: INSULIN GLARGINE 100 UNIT/ML SQ SCH ×2 (08:29→19:57)
[2021-04-29] MEDS: INSULIN -REGULAR HUMAN 50 UNIT/0.5 ML ML SQ SCH ×4 (08:42→19:57)
--- NOTE | 2021-04-29 17:53 | R.PN ---
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 Pt denied any Shortness of Breath. CBC with diff shows low Hgb of 9.1, WBC 7.5, glucose 130 to 192, prealbumin 15.8. UA is negative. Ambulated a total of 250' with contact guard assistance using a rolling walker. Self-propelled wheelc hair 250' with standby assistance. VITAL SIGNS Temperature: 97.6 F -04/24/21 SBP/DBP: 146/70 Pulse: 72 Resp: 16 MEDICATION ALLERGIES: CODINE ENVIRONMENTAL ALLERGIES: - Substance Allergies None Known - Other Allergies None Known CONSULT: Perform Consult Certified Prosthetic for prosthesis construction NURSING: - Shower allowing shower - Skin care per protocol PRECAUTIONS: - Weight Bearing Precaution NWB left LE ACTIVITIES OOB only with supervision THERAPIES: - Orthotics/Prosthetics Prosthetic Evaluation. Evaluate and Treat. - Dietary and Nutrition Adequate Nutrition. Nutritional Education. Nutritional Supplements. Evaluate and Treat. - Occupational Therapy Cognitive Retraining. Visual Perceptual Training. ADL Training. Evaluate and Treat. Safety Awareness. Household Tasks. Patient/Family Education. Adaptive Equipment. - Speech Therapy Memory Strategies. Evaluate and Treat. Receptive Language Skills. Speech Intelligibility Training. - Physical Therapy Mobility Training. Gait Training. Safety Awareness. Transfer Training. Balance Training. Evaluate and Treat. LE Strengthening. Patient/Family Education. PHYSICAL EXAM - Gen Alert and awake Lying in bed No apparent distress Oriented to: person, time, and place - Skin No skin breakdown. No abnormalities - Eyes No abnormalities - ENMT No abnormalities - Neck No abnormalities - CVS RRR - Chest Clear - Resp Clear to auscultation - Abd Soft - GI Non distended Deferred - No abnormalities - Ext Left BKA good hemostasis, immobilizer in place - MSK 4+/5 weakness in right lower extremity - Neuro 4/5 strength right lower extremity. - Psych No abnormalities ASSESSMENT: Pt. is a 61 yo Right-handed male.On 04/17/2021 he was admitted to [facility] with diagno sis Left Transtibial Amputation.His impairment category is Amputation of Limb 05 - Unilateral Lower Limb Below the Knee (BK) (05.4).Pre-morbidly, Pt. was independent/mod-I in Locomotion, Safety Awarene ss, Social Cognition, and Balance; and he had good Transfers Control, Sphincter Control, Self-Care, E ndurance, and Communication.Currently, he has deficits of Locomotion, Safety Awareness, Social Cognit ion, Balance, Transfers Control, Sphincter Control, Self-Care, Communication, and Endurance.Pt. is no w referred to [facility] for acute in-patient rehabilitation in order to maxim ize patient's functional independence in activities of daily living, strength, ROM, and mobility.- Re hab Goal Patient has realistic goal of being discharged at assistance level 7-Ind to reside at Home with Fami ly/Relatives. MDM/PLAN: - Physical Therapy Gait dysfunction - to improve, our physical therapists will perform initial evaluation of pt's statu s upon admission and devise an individualized program for Gait Training, and Wheel Chair mobility Inability to transfer - to improve, our physical therapists will perform initial evaluation of pt's status upon admission and devise an individualized program for Bed mobility Need for home safety evaluation - to improve, our physical therapists will perform initial evaluatio n of pt's status upon admission and devise an individualized program for Home Evaluation Need in caregiver upon discharge - to improve, our physical therapists will perform initial evaluati on of pt's status upon admission and devise an individualized program for Caregiver Training New precaution - to improve, our physical therapists will perform initial evaluation of pt's status upon admission and devise an individualized program for Patient precaution education Poor balance - to improve, our physical therapists will perform initial evaluation of pt's status up on admission and devise an individualized program for Balance Training Poor endurance - to improve, our physical therapists will perform initial evaluation of pt's status upon admission and devise an individualized program for Endurance Training Weakness - to improve, our physical therapists will perform initial evaluation of pt's status upon a dmission and devise an individualized program for Aquatic Therapy, Neuromuscular Reeducation, and Str engthening Achieving independence - to improve, our physical therapists will perform initial evaluation of pt's status upon admission and devise an individualized program for Community Reintegration Activities - Occupational Therapy ADL deficits - to improve, our occupation therapists will perform initial evaluation of pt's status upon admission and devise an individualized program for Bathing, Bed mobility, Community Reintegratio n, Cooking, Dressing, Eating, Fine Motor Skills, Grooming, Homemaking, Kitchen Mobility, Laundry, Pat ient Education, Safety Awareness, Splinting - Positioning, Transfers(Toilet, Tub, Shower), and Wheel Chair Management Cognitive deficits - to improve, our occupation therapists will perform initial evaluation of pt's s tatus upon admission and devise an individualized program for Cognition - orientation Need for lpn care manager - to improve, our occupation therapists will perform initial evaluation of pt's status upon admission and devise an individualized program for Caregiver Training Weakness - to improve, our occupation therapists will perform initial evaluation of pt's status upon admission and devise an individualized program for Aquatic Therapy, Balance, Endurance, UE ROM, and UE strengthening - Other See attached MAR (Medication Administration Record) - Diet Type Continue Regular - Diet - Liquid Texture Continue Regular - Tube Feed Continue N/A - Weight Bearing Precaution NWB left LE - Skin care per protocol - N/A Perform Consult Certified Prosthetic for prosthesis construction - Diet - Solid Texture Continue Regular - Shower allowing shower FUNCTIONAL STATUS: UPDATED AT WEEKLY TEAM CONFERENCE - Bladder Same accident frequency: 7-Ind - No accidents in the past 7 days - Bowel Same accident frequency: 7-Ind - No accidents in the past 7 days - Walking Same score based on distance walked: 0(N/A) - Wheelchair Same score based on distance traveled: 0(N/A) FUNCTIONAL STATUS: - Self-Care A. Eating Ind B. Grooming Sb C. Bathing sup D. Dressing - Upper sup E. Dressing - Lower Fuentes F. Toileting Sb - Sphincter Control G. Bladder control Sb H. Bowel control Sb - Transfers Control I. Bed/Chair/Wheelchair Fuentes J. Toilet Fuentes K. Tub/Shower Fuentes - Locomotion L. Walk/Wheelchair (B) Fuentes M. Stairs modA - Communication N. Comprehension (B) Sb O. Expression (B) Sb - Social Cognition P. Social Interaction Ind Q. Problem Solving sup R. Memory Sb - Endurance Fair - Balance Fair - Safety Awareness Fair QI SCORES: - Self-Care A. Eating 06-Independent B. Oral hygiene 03-Partial/moderate assistance C. Toileting hygiene 03-Partial/moderate assistance E. Shower/bathe self 03-Partial/moderate assistance F. Upper body dressing 03-Partial/moderate assistance G. Lower body dressing 03-Partial/moderate assistance H. Putting on/taking off footwear 88-Not attempted due to medical condition or safety concerns - Mobility A. Roll left and right 04-Supervision or touching assistance B. Sit to lying 03-Partial/moderate assistance C. Lying to sitting on side of bed 03-Partial/moderate assistance D. Sit to stand 03-Partial/moderate assistance E. Chair/[id number] transfer 03-Partial/moderate assistance F. Toilet transfer 03-Partial/moderate assistance G. Car transfer 88-Not attempted due to medical condition or safety concerns I. Walk 10 feet 03-Partial/moderate assistance J. Walk 50 feet with two turns 03-Partial/moderate assistance K. Walk 150 feet 88-Not attempted due to medical condition or safety concerns L. Walking 10 feet on uneven surfaces 88-Not attempted due to medical condition or safety concerns M. 1 step (curb) 88-Not attempted due to medical condition or safety concerns N. 4 steps 88-Not attempted due to medical condition or safety concerns O. 12 steps 88-Not attempted due to medical condition or safety concerns P. Picking up object 88-Not attempted due to medical condition or safety concerns R. Wheel 50 feet with two turns 88-Not attempted due to medical condition or safety concerns S. Wheel 150 feet 88-Not attempted due to medical condition or safety concerns - Bladder and Bowel Bladder continence Bowel continence - Endurance Fair - Balance Fair - Safety Awareness Fair CURRENT FUNC. 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
[2021-04-29] MEDS: ATORVASTATIN 10 MG TAB PO SCH (19:54)
[2021-04-30] MEDS: INSULIN -REGULAR HUMAN 50 UNIT/0.5 ML ML SQ SCH ×4 (07:30→21:00)
[2021-04-30] MEDS: GABAPENTIN 300 MG CAP PO SCH ×2 (08:38→21:39)
[2021-04-30] MEDS: CLOPIDOGREL 75 MG TABLET PO SCH (08:38)
[2021-04-30] MEDS: AMLODIPINE 5 MG TAB PO SCH (08:38)
[2021-04-30] MEDS: METFORMIN HCL 500 MG TAB PO SCH ×2 (08:38→16:21)
[2021-04-30] MEDS: INSULIN GLARGINE 100 UNIT/ML SQ SCH ×2 (08:39→21:39)
[2021-04-30] MEDS: JUVEN PACKET PO SCH ×2 (08:39→21:00)
[2021-04-30] MEDS: OXYCODONE HCL 5 MG TAB PO PRN (08:43)
--- NOTE | 2021-04-30 17:24 | R.PN ---
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 Pt denied any Shortness of Breath. CBC with diff shows low Hgb of 9.1, WBC 7.5, glucose 133 to 255, prealbumin 15.8. UA is negative. Self-propelled wheelchair a total of 1000' with contact guard assistance. VITAL SIGNS Temperature: 98.2 F SBP/DBP: 133/69 Pulse: 82 Resp: 15 MEDICATION ALLERGIES: CODINE ENVIRONMENTAL ALLERGIES: - Substance Allergies None Known - Other Allergies None Known CONSULT: Perform Consult Certified Prosthetic for prosthesis construction NURSING: - Shower allowing shower - Skin care per protocol PRECAUTIONS: - Weight Bearing Precaution NWB left LE ACTIVITIES OOB only with supervision THERAPIES: - Orthotics/Prosthetics Prosthetic Evaluation. Evaluate and Treat. - Dietary and Nutrition Adequate Nutrition. Nutritional Education. Nutritional Supplements. Evaluate and Treat. - Occupational Therapy Cognitive Retraining. Visual Perceptual Training. ADL Training. Evaluate and Treat. Safety Awareness. Household Tasks. Patient/Family Education. Adaptive Equipment. - Speech Therapy Memory Strategies. Evaluate and Treat. Receptive Language Skills. Speech Intelligibility Training. - Physical Therapy Mobility Training. Gait Training. Safety Awareness. Transfer Training. Balance Training. Evaluate and Treat. LE Strengthening. Patient/Family Education. PHYSICAL EXAM - Gen Alert and awake Lying in bed No apparent distress Oriented to: person, time, and place - Skin No skin breakdown. No abnormalities - Eyes No abnormalities - ENMT No abnormalities - Neck No abnormalities - CVS RRR - Chest Clear - Resp Clear to auscultation - Abd Soft - GI Non distended Deferred - No abnormalities - Ext Left BKA good hemostasis, immobilizer in place - MSK 4+/5 weakness in right lower extremity - Neuro 4/5 strength right lower extremity. - Psych No abnormalities ASSESSMENT: Pt. is a 61 yo Right-handed male.On 04/17/2021 he was admitted to [facility] with diagno sis Left Transtibial Amputation.His impairment category is Amputation of Limb 05 - Unilateral Lower Limb Below the Knee (BK) (05.4).Pre-morbidly, Pt. was independent/mod-I in Locomotion, Safety Awarene ss, Social Cognition, and Balance; and he had good Transfers Control, Sphincter Control, Self-Care, E ndurance, and Communication.Currently, he has deficits of Locomotion, Safety Awareness, Social Cognit ion, Balance, Transfers Control, Sphincter Control, Self-Care, Communication, and Endurance.Pt. is no w referred to [facility] for acute in-patient rehabilitation in order to maxim ize patient's functional independence in activities of daily living, strength, ROM, and mobility.- Re hab Goal Patient has realistic goal of being discharged at assistance level 7-Ind to reside at Home with Fami ly/Relatives. MDM/PLAN: - Physical Therapy Gait dysfunction - to improve, our physical therapists will perform initial evaluation of pt's statu s upon admission and devise an individualized program for Gait Training, and Wheel Chair mobility Inability to transfer - to improve, our physical therapists will perform initial evaluation of pt's status upon admission and devise an individualized program for Bed mobility Need for home safety evaluation - to improve, our physical therapists will perform initial evaluatio n of pt's status upon admission and devise an individualized program for Home Evaluation Need in caregiver upon discharge - to improve, our physical therapists will perform initial evaluati on of pt's status upon admission and devise an individualized program for Caregiver Training New precaution - to improve, our physical therapists will perform initial evaluation of pt's status upon admission and devise an individualized program for Patient precaution education Poor balance - to improve, our physical therapists will perform initial evaluation of pt's status up on admission and devise an individualized program for Balance Training Poor endurance - to improve, our physical therapists will perform initial evaluation of pt's status upon admission and devise an individualized program for Endurance Training Weakness - to improve, our physical therapists will perform initial evaluation of pt's status upon a dmission and devise an individualized program for Aquatic Therapy, Neuromuscular Reeducation, and Str engthening Achieving independence - to improve, our physical therapists will perform initial evaluation of pt's status upon admission and devise an individualized program for Community Reintegration Activities - Occupational Therapy ADL deficits - to improve, our occupation therapists will perform initial evaluation of pt's status upon admission and devise an individualized program for Bathing, Bed mobility, Community Reintegratio n, Cooking, Dressing, Eating, Fine Motor Skills, Grooming, Homemaking, Kitchen Mobility, Laundry, Pat ient Education, Safety Awareness, Splinting - Positioning, Transfers(Toilet, Tub, Shower), and Wheel Chair Management Cognitive deficits - to improve, our occupation therapists will perform initial evaluation of pt's s tatus upon admission and devise an individualized program for Cognition - orientation Need for child daycare worker - to improve, our occupation therapists will perform initial evaluation of pt's status upon admission and devise an individualized program for Caregiver Training Weakness - to improve, our occupation therapists will perform initial evaluation of pt's status upon admission and devise an individualized program for Aquatic Therapy, Balance, Endurance, UE ROM, and UE strengthening - Other See attached MAR (Medication Administration Record) - Diet Type Continue Regular - Diet - Liquid Texture Continue Regular - Tube Feed Continue N/A - Weight Bearing Precaution NWB left LE - Skin care per protocol - N/A Perform Consult Certified Prosthetic for prosthesis construction - Diet - Solid Texture Continue Regular - Shower allowing shower FUNCTIONAL STATUS: UPDATED AT WEEKLY TEAM CONFERENCE - Bladder Same accident frequency: 7-Ind - No accidents in the past 7 days - Bowel Same accident frequency: 7-Ind - No accidents in the past 7 days - Walking Same score based on distance walked: 0(N/A) - Wheelchair Same score based on distance traveled: 0(N/A) FUNCTIONAL STATUS: - Self-Care A. Eating Ind B. Grooming Sb C. Bathing sup D. Dressing - Upper sup E. Dressing - Lower Fuentes F. Toileting Sb - Sphincter Control G. Bladder control Sb H. Bowel control Sb - Transfers Control I. Bed/Chair/Wheelchair Fuentes J. Toilet Fuentes K. Tub/Shower Fuentes - Locomotion L. Walk/Wheelchair (B) Fuentes M. Stairs modA - Communication N. Comprehension (B) Sb O. Expression (B) Sb - Social Cognition P. Social Interaction Ind Q. Problem Solving sup R. Memory Sb - Endurance Fair - Balance Fair - Safety Awareness Fair QI SCORES: - Self-Care A. Eating 06-Independent B. Oral hygiene 03-Partial/moderate assistance C. Toileting hygiene 03-Partial/moderate assistance E. Shower/bathe self 03-Partial/moderate assistance F. Upper body dressing 03-Partial/moderate assistance G. Lower body dressing 03-Partial/moderate assistance H. Putting on/taking off footwear 88-Not attempted due to medical condition or safety concerns - Mobility A. Roll left and right 04-Supervision or touching assistance B. Sit to lying 03-Partial/moderate assistance C. Lying to sitting on side of bed 03-Partial/moderate assistance D. Sit to stand 03-Partial/moderate assistance E. Chair/[id number]-[id number] transfer 03-Partial/moderate assistance F. Toilet transfer 03-Partial/moderate assistance G. Car transfer 88-Not attempted due to medical condition or safety concerns I. Walk 10 feet 03-Partial/moderate assistance J. Walk 50 feet with two turns 03-Partial/moderate assistance K. Walk 150 feet 88-Not attempted due to medical condition or safety concerns L. Walking 10 feet on uneven surfaces 88-Not attempted due to medical condition or safety concerns M. 1 step (curb) 88-Not attempted due to medical condition or safety concerns N. 4 steps 88-Not attempted due to medical condition or safety concerns O. 12 steps 88-Not attempted due to medical condition or safety concerns P. Picking up object 88-Not attempted due to medical condition or safety concerns R. Wheel 50 feet with two turns 88-Not attempted due to medical condition or safety concerns S. Wheel 150 feet 88-Not attempted due to medical condition or safety concerns - Bladder and Bowel Bladder continence Bowel continence - Endurance Fair - Balance Fair - Safety Awareness Fair [facility] 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
[2021-04-30] MEDS: ATORVASTATIN 10 MG TAB PO SCH (21:39)
[2021-05-01] MEDS: INSULIN -REGULAR HUMAN 50 UNIT/0.5 ML ML SQ SCH ×4 (07:30→20:48)
[2021-05-01] MEDS: OXYCODONE HCL 5 MG TAB PO PRN (07:32)
[2021-05-01] MEDS: INSULIN GLARGINE 100 UNIT/ML SQ SCH ×2 (09:00→20:49)
[2021-05-01] MEDS: JUVEN PACKET PO SCH ×2 (09:00→20:47)
[2021-05-01] MEDS: METFORMIN HCL 500 MG TAB PO SCH ×2 (09:07→17:33)
[2021-05-01] MEDS: GABAPENTIN 300 MG CAP PO SCH ×2 (09:08→20:47)
[2021-05-01] MEDS: CLOPIDOGREL 75 MG TABLET PO SCH (09:08)
[2021-05-01] MEDS: AMLODIPINE 5 MG TAB PO SCH ×2 (09:08→09:09)
[2021-05-01] MEDS ORDERED: ONDANSETRON 4 MG (ODT) TAB PO PRN (13:54)
--- NOTE | 2021-05-01 19:39 | R.PN ---
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 Pt denied any Shortness of Breath. CBC with diff shows low Hgb of 9.1, WBC 7.5, glucose 136 to 224, prealbumin 15.8. UA is negative. Self-propelled wheelchair a total of 500' with contact guard assistance. Ambulated 400' with rolling walker and good balance. VITAL SIGNS Temperature: 97.6 F SBP/DBP: 130/71 Pulse: 79 Resp: 15 MEDICATION ALLERGIES: CODINE ENVIRONMENTAL ALLERGIES: - Substance Allergies None Known - Other Allergies None Known CONSULT: Perform Consult Certified Prosthetic for prosthesis construction NURSING: - Shower allowing shower - Skin care per protocol PRECAUTIONS: - Weight Bearing Precaution NWB left LE ACTIVITIES OOB only with supervision THERAPIES: - Orthotics/Prosthetics Prosthetic Evaluation. Evaluate and Treat. - Dietary and Nutrition Adequate Nutrition. Nutritional Education. Nutritional Supplements. Evaluate and Treat. - Occupational Therapy Cognitive Retraining. Visual Perceptual Training. ADL Training. Evaluate and Treat. Safety Awareness. Household Tasks. Patient/Family Education. Adaptive Equipment. - Speech Therapy Memory Strategies. Evaluate and Treat. Receptive Language Skills. Speech Intelligibility Training. - Physical Therapy Mobility Training. Gait Training. Safety Awareness. Transfer Training. Balance Training. Evaluate and Treat. LE Strengthening. Patient/Family Education. PHYSICAL EXAM - Gen Alert and awake Lying in bed No apparent distress Oriented to: person, time, and place - Skin No skin breakdown. No abnormalities - Eyes No abnormalities - ENMT No abnormalities - Neck No abnormalities - CVS RRR - Chest Clear - Resp Clear to auscultation - Abd Soft - GI Non distended Deferred - No abnormalities - Ext Left BKA good hemostasis, immobilizer in place - MSK 4+/5 weakness in right lower extremity - Neuro 4/5 strength right lower extremity. - Psych No abnormalities ASSESSMENT: Pt. is a 61 yo Right-handed male.On 04/17/2021 he was admitted to [facility] with diagno sis Left Transtibial Amputation.His impairment category is Amputation of Limb 05 - Unilateral Lower Limb Below the Knee (BK) (05.4).Pre-morbidly, Pt. was independent/mod-I in Locomotion, Safety Awarene ss, Social Cognition, and Balance; and he had good Transfers Control, Sphincter Control, Self-Care, E ndurance, and Communication.Currently, he has deficits of Locomotion, Safety Awareness, Social Cognit ion, Balance, Transfers Control, Sphincter Control, Self-Care, Communication, and Endurance.Pt. is no w referred to [facility] for acute in-patient rehabilitation in order to maxim ize patient's functional independence in activities of daily living, strength, ROM, and mobility.- Re hab Goal Patient has realistic goal of being discharged at assistance level 7-Ind to reside at Home with Fami ly/Relatives. MDM/PLAN: - Physical Therapy Gait dysfunction - to improve, our physical therapists will perform initial evaluation of pt's statu s upon admission and devise an individualized program for Gait Training, and Wheel Chair mobility Inability to transfer - to improve, our physical therapists will perform initial evaluation of pt's status upon admission and devise an individualized program for Bed mobility Need for home safety evaluation - to improve, our physical therapists will perform initial evaluatio n of pt's status upon admission and devise an individualized program for Home Evaluation Need in caregiver upon discharge - to improve, our physical therapists will perform initial evaluati on of pt's status upon admission and devise an individualized program for Caregiver Training New precaution - to improve, our physical therapists will perform initial evaluation of pt's status upon admission and devise an individualized program for Patient precaution education Poor balance - to improve, our physical therapists will perform initial evaluation of pt's status up on admission and devise an individualized program for Balance Training Poor endurance - to improve, our physical therapists will perform initial evaluation of pt's status upon admission and devise an individualized program for Endurance Training Weakness - to improve, our physical therapists will perform initial evaluation of pt's status upon a dmission and devise an individualized program for Aquatic Therapy, Neuromuscular Reeducation, and Str engthening Achieving independence - to improve, our physical therapists will perform initial evaluation of pt's status upon admission and devise an individualized program for Community Reintegration Activities - Occupational Therapy ADL deficits - to improve, our occupation therapists will perform initial evaluation of pt's status upon admission and devise an individualized program for Bathing, Bed mobility, Community Reintegratio n, Cooking, Dressing, Eating, Fine Motor Skills, Grooming, Homemaking, Kitchen Mobility, Laundry, Pat ient Education, Safety Awareness, Splinting - Positioning, Transfers(Toilet, Tub, Shower), and Wheel Chair Management Cognitive deficits - to improve, our occupation therapists will perform initial evaluation of pt's s tatus upon admission and devise an individualized program for Cognition - orientation Need for hiv/aids care nurse - to improve, our occupation therapists will perform initial evaluation of pt's status upon admission and devise an individualized program for Caregiver Training Weakness - to improve, our occupation therapists will perform initial evaluation of pt's status upon admission and devise an individualized program for Aquatic Therapy, Balance, Endurance, UE ROM, and UE strengthening - Other See attached MAR (Medication Administration Record) - Diet Type Continue Regular - Diet - Liquid Texture Continue Regular - Tube Feed Continue N/A - Weight Bearing Precaution NWB left LE - Skin care per protocol - N/A Perform Consult Certified Prosthetic for prosthesis construction - Diet - Solid Texture Continue Regular - Shower allowing shower FUNCTIONAL STATUS: UPDATED AT WEEKLY TEAM CONFERENCE - Bladder Same accident frequency: 7-Ind - No accidents in the past 7 days - Bowel Same accident frequency: 7-Ind - No accidents in the past 7 days - Walking Same score based on distance walked: 0(N/A) - Wheelchair Same score based on distance traveled: 0(N/A) FUNCTIONAL STATUS: - Self-Care A. Eating Ind B. Grooming Sb C. Bathing sup D. Dressing - Upper sup E. Dressing - Lower Fuentes F. Toileting Sb - Sphincter Control G. Bladder control Sb H. Bowel control Sb - Transfers Control I. Bed/Chair/Wheelchair Fuentes J. Toilet Fuentes K. Tub/Shower Fuentes - Locomotion L. Walk/Wheelchair (B) Fuentes M. Stairs modA - Communication N. Comprehension (B) Sb O. Expression (B) Sb - Social Cognition P. Social Interaction Ind Q. Problem Solving sup R. Memory Sb - Endurance Fair - Balance Fair - Safety Awareness Fair QI SCORES: - Self-Care A. Eating 06-Independent B. Oral hygiene 03-Partial/moderate assistance C. Toileting hygiene 03-Partial/moderate assistance E. Shower/bathe self 03-Partial/moderate assistance F. Upper body dressing 03-Partial/moderate assistance G. Lower body dressing 03-Partial/moderate assistance H. Putting on/taking off footwear 88-Not attempted due to medical condition or safety concerns - Mobility A. Roll left and right 04-Supervision or touching assistance B. Sit to lying 03-Partial/moderate assistance C. Lying to sitting on side of bed 03-Partial/moderate assistance D. Sit to stand 03-Partial/moderate assistance E. Chair/[id number]-eq-[id number] transfer 03-Partial/moderate assistance F. Toilet transfer 03-Partial/moderate assistance G. Car transfer 88-Not attempted due to medical condition or safety concerns I. Walk 10 feet 03-Partial/moderate assistance J. Walk 50 feet with two turns 03-Partial/moderate assistance K. Walk 150 feet 88-Not attempted due to medical condition or safety concerns L. Walking 10 feet on uneven surfaces 88-Not attempted due to medical condition or safety concerns M. 1 step (curb) 88-Not attempted due to medical condition or safety concerns N. 4 steps 88-Not attempted due to medical condition or safety concerns O. 12 steps 88-Not attempted due to medical condition or safety concerns P. Picking up object 88-Not attempted due to medical condition or safety concerns R. Wheel 50 feet with two turns 88-Not attempted due to medical condition or safety concerns S. Wheel 150 feet 88-Not attempted due to medical condition or safety concerns - Bladder and Bowel Bladder continence Bowel continence - Endurance Fair - Balance Fair - Safety Awareness Fair [facility]. DEFICITS: Mobility, Endurance, Balance, Safety Awareness, and Self-Care SIGNATURE PANEL: ([employer])
[2021-05-01] MEDS: ATORVASTATIN 10 MG TAB PO SCH (20:47)
[2021-05-02 07:02] LABS: Absolute Lymphocytes (CBC) 1.7 K/uL (0.7-4.9); Hematocrit 28.5 % (39.6-49.0); MPV 6.8 fL (7.6-11.3)
[2021-05-02 07:22] LABS: Albumin 2.9 g/dL (3.4-5.0); Prealbumin 18.7 mg/dL (20-40)
[2021-05-02] MEDS: INSULIN -REGULAR HUMAN 50 UNIT/0.5 ML ML SQ SCH ×4 (07:30→21:00)
[2021-05-02] MEDS: METFORMIN HCL 500 MG TAB PO SCH ×2 (09:00→17:13)
[2021-05-02] MEDS: JUVEN PACKET PO SCH ×2 (09:00→21:00)
[2021-05-02] MEDS: GABAPENTIN 300 MG CAP PO SCH ×2 (09:00→21:59)
[2021-05-02] MEDS: CLOPIDOGREL 75 MG TABLET PO SCH (09:00)
[2021-05-02] MEDS: INSULIN GLARGINE 100 UNIT/ML SQ SCH ×2 (09:00→21:00)
--- NOTE | 2021-05-02 17:42 | R.PN ---
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 Pt denied any Shortness of Breath. CBC with diff shows low Hgb of 9.6, WBC 5.8, glucose 133 to 190, prealbumin 18.7. UA is negative. Self-propelled wheelchair a total of 500' with contact guard assistance. Ambulated 440' with rolling walker and good balance. VITAL SIGNS Temperature: 98.0 F SBP/DBP: 111/59 Pulse: 87 Resp: 16 MEDICATION ALLERGIES: CODINE ENVIRONMENTAL ALLERGIES: - Substance Allergies None Known - Other Allergies None Known CONSULT: Perform Consult Certified Prosthetic for prosthesis construction NURSING: - Shower allowing shower - Skin care per protocol PRECAUTIONS: - Weight Bearing Precaution NWB left LE ACTIVITIES OOB only with supervision THERAPIES: - Orthotics/Prosthetics Prosthetic Evaluation. Evaluate and Treat. - Dietary and Nutrition Adequate Nutrition. Nutritional Education. Nutritional Supplements. Evaluate and Treat. - Occupational Therapy Cognitive Retraining. Visual Perceptual Training. ADL Training. Evaluate and Treat. Safety Awareness. Household Tasks. Patient/Family Education. Adaptive Equipment. - Speech Therapy Memory Strategies. Evaluate and Treat. Receptive Language Skills. Speech Intelligibility Training. - Physical Therapy Mobility Training. Gait Training. Safety Awareness. Transfer Training. Balance Training. Evaluate and Treat. LE Strengthening. Patient/Family Education. PHYSICAL EXAM - Gen Alert and awake Lying in bed No apparent distress Oriented to: person, time, and place - Skin No skin breakdown. No abnormalities - Eyes No abnormalities - ENMT No abnormalities - Neck No abnormalities - CVS RRR - Chest Clear - Resp Clear to auscultation - Abd Soft - GI Non distended Deferred - No abnormalities - Ext Left BKA good hemostasis, immobilizer in place - MSK 4+/5 weakness in right lower extremity - Neuro 4/5 strength right lower extremity. - Psych No abnormalities ASSESSMENT: Pt. is a 61 yo Right-handed male.On 04/17/2021 he was admitted to [facility] with diagno sis Left Transtibial Amputation.His impairment category is Amputation of Limb 05 - Unilateral Lower Limb Below the Knee (BK) (05.4).Pre-morbidly, Pt. was independent/mod-I in Locomotion, Safety Awarene ss, Social Cognition, and Balance; and he had good Transfers Control, Sphincter Control, Self-Care, E ndurance, and Communication.Currently, he has deficits of Locomotion, Safety Awareness, Social Cognit ion, Balance, Transfers Control, Sphincter Control, Self-Care, Communication, and Endurance.Pt. is no w referred to [facility] for acute in-patient rehabilitation in order to maxim ize patient's functional independence in activities of daily living, strength, ROM, and mobility.- Re hab Goal Patient has realistic goal of being discharged at assistance level 7-Ind to reside at Home with Fami ly/Relatives. MDM/PLAN: - Physical Therapy Gait dysfunction - to improve, our physical therapists will perform initial evaluation of pt's statu s upon admission and devise an individualized program for Gait Training, and Wheel Chair mobility Inability to transfer - to improve, our physical therapists will perform initial evaluation of pt's status upon admission and devise an individualized program for Bed mobility Need for home safety evaluation - to improve, our physical therapists will perform initial evaluatio n of pt's status upon admission and devise an individualized program for Home Evaluation Need in caregiver upon discharge - to improve, our physical therapists will perform initial evaluati on of pt's status upon admission and devise an individualized program for Caregiver Training New precaution - to improve, our physical therapists will perform initial evaluation of pt's status upon admission and devise an individualized program for Patient precaution education Poor balance - to improve, our physical therapists will perform initial evaluation of pt's status up on admission and devise an individualized program for Balance Training Poor endurance - to improve, our physical therapists will perform initial evaluation of pt's status upon admission and devise an individualized program for Endurance Training Weakness - to improve, our physical therapists will perform initial evaluation of pt's status upon a dmission and devise an individualized program for Aquatic Therapy, Neuromuscular Reeducation, and Str engthening Achieving independence - to improve, our physical therapists will perform initial evaluation of pt's status upon admission and devise an individualized program for Community Reintegration Activities - Occupational Therapy ADL deficits - to improve, our occupation therapists will perform initial evaluation of pt's status upon admission and devise an individualized program for Bathing, Bed mobility, Community Reintegratio n, Cooking, Dressing, Eating, Fine Motor Skills, Grooming, Homemaking, Kitchen Mobility, Laundry, Pat ient Education, Safety Awareness, Splinting - Positioning, Transfers(Toilet, Tub, Shower), and Wheel Chair Management Cognitive deficits - to improve, our occupation therapists will perform initial evaluation of pt's s tatus upon admission and devise an individualized program for Cognition - orientation Need for career and technology education teacher - to improve, our occupation therapists will perform initial evaluation of pt's status upon admission and devise an individualized program for Caregiver Training Weakness - to improve, our occupation therapists will perform initial evaluation of pt's status upon admission and devise an individualized program for Aquatic Therapy, Balance, Endurance, UE ROM, and UE strengthening - Other See attached MAR (Medication Administration Record) - Diet Type Continue Regular - Diet - Liquid Texture Continue Regular - Tube Feed Continue N/A - Weight Bearing Precaution NWB left LE - Skin care per protocol - N/A Perform Consult Certified Prosthetic for prosthesis construction - Diet - Solid Texture Continue Regular - Shower allowing shower FUNCTIONAL STATUS: UPDATED AT WEEKLY TEAM CONFERENCE - Bladder Same accident frequency: 7-Ind - No accidents in the past 7 days - Bowel Same accident frequency: 7-Ind - No accidents in the past 7 days - Walking Same score based on distance walked: 0(N/A) - Wheelchair Same score based on distance traveled: 0(N/A) FUNCTIONAL STATUS: - Self-Care A. Eating Ind B. Grooming Sb C. Bathing sup D. Dressing - Upper sup E. Dressing - Lower Fuentes F. Toileting Sb - Sphincter Control G. Bladder control Sb H. Bowel control Sb - Transfers Control I. Bed/Chair/Wheelchair Fuentes J. Toilet Fuentes K. Tub/Shower Fuentes - Locomotion L. Walk/Wheelchair (B) Fuentes M. Stairs modA - Communication N. Comprehension (B) Sb O. Expression (B) Sb - Social Cognition P. Social Interaction Ind Q. Problem Solving sup R. Memory Sb - Endurance Fair - Balance Fair - Safety Awareness Fair QI SCORES: - Self-Care A. Eating 06-Independent B. Oral hygiene 03-Partial/moderate assistance C. Toileting hygiene 03-Partial/moderate assistance E. Shower/bathe self 03-Partial/moderate assistance F. Upper body dressing 03-Partial/moderate assistance G. Lower body dressing 03-Partial/moderate assistance H. Putting on/taking off footwear 88-Not attempted due to medical condition or safety concerns - Mobility A. Roll left and right 04-Supervision or touching assistance B. Sit to lying 03-Partial/moderate assistance C. Lying to sitting on side of bed 03-Partial/moderate assistance D. Sit to stand 03-Partial/moderate assistance E. Chair/[id number] transfer 03-Partial/moderate assistance F. Toilet transfer 03-Partial/moderate assistance G. Car transfer 88-Not attempted due to medical condition or safety concerns I. Walk 10 feet 03-Partial/moderate assistance J. Walk 50 feet with two turns 03-Partial/moderate assistance K. Walk 150 feet 88-Not attempted due to medical condition or safety concerns L. Walking 10 feet on uneven surfaces 88-Not attempted due to medical condition or safety concerns M. 1 step (curb) 88-Not attempted due to medical condition or safety concerns N. 4 steps 88-Not attempted due to medical condition or safety concerns O. 12 steps 88-Not attempted due to medical condition or safety concerns P. Picking up object 88-Not attempted due to medical condition or safety concerns R. Wheel 50 feet with two turns 88-Not attempted due to medical condition or safety concerns S. Wheel 150 feet 88-Not attempted due to medical condition or safety concerns - Bladder and Bowel Bladder continence Bowel continence - Endurance Fair - Balance Fair - Safety Awareness Fair [facility]RENT [facility]. 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
[2021-05-02] MEDS: ATORVASTATIN 10 MG TAB PO SCH (21:59)
[2021-05-03] MEDS: JUVEN PACKET PO SCH ×2 (09:00→21:00)
[2021-05-03] MEDS: GABAPENTIN 300 MG CAP PO SCH ×2 (09:29→21:19)
[2021-05-03] MEDS: CLOPIDOGREL 75 MG TABLET PO SCH (09:29)
[2021-05-03] MEDS: METFORMIN HCL 500 MG TAB PO SCH ×2 (09:29→17:05)
[2021-05-03] MEDS: AMLODIPINE 5 MG TAB PO SCH (09:29)
[2021-05-03] MEDS: INSULIN GLARGINE 100 UNIT/ML SQ SCH ×2 (09:30→21:00)
[2021-05-03] MEDS: INSULIN -REGULAR HUMAN 50 UNIT/0.5 ML ML SQ SCH ×4 (09:31→21:00)
--- NOTE | 2021-05-03 09:58 | P.RH.PN ---
Estimated Length of Stay: 11 Expected Discharge Date: 05/07/21 Discharge Disposition Plan: Home Family Support: Yes Custodial Goal: Mobility, Transfers, Self Care Vital Signs: Last Vital Signs Temp 98.3 F 05/03/21 08:00 Pulse 97 H 05/03/21 09:29 Resp 20 05/03/21 08:00 BP 101/64 05/03/21 09:29 Pulse Ox 100 05/03/21 08:00 Laboratory: Laboratory Last Values WBC 5.80 K/uL (4.3-10.9) D 05/02/21 06:45 RBC 3.20 M/uL (4.33-5.43) L 05/02/21 06:45 Hgb 9.6 g/dL (13.6-17.9) L 05/02/21 06:45 Hct 28.5 % (39.6-49.0) L 05/02/21 06:45 MCV 89.3 fL (80-100) 05/02/21 06:45 MCH 30.1 pg (27.0-35.0) 05/02/21 06:45 MCHC 33.7 g/dL (32.0-36.0) 05/02/21 06:45 RDW 13.5 % (12.1-15.2) 05/02/21 06:45 Plt Count 416 K/uL (152-406) H 05/02/21 06:45 MPV 6.8 fL (7.6-11.3) L 05/02/21 06:45 Neutrophils % 54.9 % (41.7-73.7) 05/02/21 06:45 Lymphocytes % 30.0 % (15.3-44.8) 05/02/21 06:45 Monocytes % 8.0 % (3.3-12.3) 05/02/21 06:45 Eosinophils % 6.0 % (0-4.4) H 05/02/21 06:45 Basophils % 1.1 % (0-1.3) 05/02/21 06:45 Absolute Neutrophils 3.2 K/uL (1.8-8.0) 05/02/21 06:45 Absolute Lymphocytes 1.7 K/uL (0.7-4.9) 05/02/21 06:45 Absolute Monocytes 0.5 K/uL (0.1-1.3) 05/02/21 06:45 Absolute Eosinophils 0.4 K/uL (0-0.5) 05/02/21 06:45 Absolute Basophils 0.1 K/uL (0-0.5) 05/02/21 06:45 Sodium 137 mmol/L (136-145) 05/02/21 06:45 Potassium 4.0 mmol/L (3.5-5.1) 05/02/21 06:45 Chloride 104 mmol/L (98-107) 05/02/21 06:45 Carbon Dioxide 29 mmol/L (21-32) 05/02/21 06:45 BUN 26 mg/dL (7-18) H 05/02/21 06:45 Creatinine 1.03 mg/dL (0.55-1.3) 05/02/21 06:45 Estimated GFR 74 mL/min (=/>90) L 05/02/21 06:45 Glucose 133 mg/dL (74-106) H 05/02/21 06:45 POC Glucose 160 mg/dL (65-120) H 05/03/21 08:16 Calcium 9.4 mg/dL (8.5-10.1) 05/02/21 06:45 Magnesium 2.0 mg/dL (1.8-2.4) 05/02/21 06:45 Albumin 2.9 g/dL (3.4-5.0) L 05/02/21 06:45 Prealbumin 18.7 mg/dL (20-40) L 05/02/21 06:45 Urine Color Yellow (Yellow) 04/27/21 12:23 Urine Appearance Clear (Clear) 04/27/21 12:23 Urine pH 6.0 (5.0-7.0) 04/27/21 12:23 Ur Specific [place] 1.015 (1.005-1.030) 04/27/21 12:23 Glucose (UA)(Auto) Trace (Negative) 04/27/21 12: Urine Ketones Negative (Negative) 04/27/21 12:23 Urine Blood Negative (Negative) 04/27/21 12:23 Urine Nitrite Negative (Negative) 04/27/21 12:23 Urine Bilirubin Negative (Negative) 04/27/21 12:23 Urine Urobilinogen 0.2 mg/dL (0.2-1.0) 04/27/21 12:23 Ur Leukocyte Esterase Negative (Negative) 04/27/21 12:23 Urine RBC <5 /HPF (NONE SEEN) 04/27/21 12:23 Urine WBC None seen /HPF (<5) 04/27/21 12:23 Ur Squamous Epith Cells <5 /HPF (NONE SEEN) 04/27/21 12:23 Ur Urothelial Cells Cancelled 04/27/21 12:22 Calcium Oxalate Crystal Cancelled 04/27/21 12:22 Uric Acid Crystals Cancelled 04/27/21 12:22 Triple Phos Crystals Cancelled 04/27/21 12:22 Other Crystals Cancelled 04/27/21 12:22 Amorphous Sediment Cancelled 04/27/21 12:22 Glitter Cells Cancelled 04/27/21 12:22 Urine Bacteria None seen /HPF (NONE SEEN) 04/27/21 12:23 Hyaline Casts Cancelled 04/27/21 12:22 Fine Granular Casts Cancelled 04/27/21 12:22 Coarse Granular Casts Cancelled 04/27/21 12:22 Waxy Casts Cancelled 04/27/21 12:22 RBC Casts Cancelled 04/27/21 12:22 WBC Casts Cancelled 04/27/21 12:22 Urine Mucus Cancelled 04/27/21 12:22 Urine Other Cancelled 04/27/21 12:22 Urine Trichomonas Cancelled 04/27/21 12:22 Urine Yeast Cancelled 04/27/21 12:22 Ur Yeast w Hyphae Cancelled 04/27/21 12:22 Urine Yeast (Budding) Cancelled 04/27/21 12:22 Urine Sperm Cancelled 04/27/21 12:22 Urine Culture Reflexed Not needed 04/27/21 12:23 Urine Total Volume Cancelled 04/27/21 12:22 Urine Total Protein Trace (Negative) H 04/27/21 12:23 Weight: 250 lb Within Defined Parameters: No Wound Present: Yes Closed Surgical Incision Present: Yes Physician Update: Labs reviewed and are stable. He is making very good progress with all therapy. He will be back up on the 5th floor on Thursday and may be d/jessica on Thursday. 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 Please see the Rehabilitation Signature page for all necessary signatures.
[2021-05-03] MEDS: ATORVASTATIN 10 MG TAB PO SCH (21:19)
[2021-05-04] MEDS: INSULIN -REGULAR HUMAN 50 UNIT/0.5 ML ML SQ SCH ×4 (07:30→21:00)
[2021-05-04] MEDS: AMLODIPINE 5 MG TAB PO SCH (08:47)
[2021-05-04] MEDS: METFORMIN HCL 500 MG TAB PO SCH ×2 (08:47→17:15)
[2021-05-04] MEDS: GABAPENTIN 300 MG CAP PO SCH ×2 (08:47→21:00)
[2021-05-04] MEDS: INSULIN GLARGINE 100 UNIT/ML SQ SCH ×2 (08:48→21:00)
[2021-05-04] MEDS: CLOPIDOGREL 75 MG TABLET PO SCH (08:48)
[2021-05-04] MEDS: JUVEN PACKET PO SCH ×2 (08:48→21:00)
[2021-05-04] MEDS: ATORVASTATIN 10 MG TAB PO SCH (21:00)
[2021-05-05] MEDS: INSULIN -REGULAR HUMAN 50 UNIT/0.5 ML ML SQ SCH ×5 (07:30→19:48)
[2021-05-05] MEDS: GABAPENTIN 300 MG CAP PO SCH ×2 (08:52→19:47)
[2021-05-05] MEDS: METFORMIN HCL 500 MG TAB PO SCH ×2 (08:52→17:05)
[2021-05-05] MEDS: AMLODIPINE 5 MG TAB PO SCH (08:52)
[2021-05-05] MEDS: CLOPIDOGREL 75 MG TABLET PO SCH (08:52)
[2021-05-05] MEDS: JUVEN PACKET PO SCH ×2 (08:53→19:48)
[2021-05-05] MEDS: INSULIN GLARGINE 100 UNIT/ML SQ SCH ×2 (08:53→19:47)
[2021-05-05 11:27] VITALS: BMI 33.9
[2021-05-05] MEDS: APIXABAN 2.5 MG TABLET PO SCH (19:47)
[2021-05-05] MEDS: FERROUS SULFATE 325 MG TAB PO SCH (19:47)
[2021-05-05] MEDS: ATORVASTATIN 10 MG TAB PO SCH (19:47)
[2021-05-06 05:31] LABS: Absolute Lymphocytes (CBC) 1.5 K/uL (0.7-4.9); Lymphocytes % 25.4 % (15.3-44.8); MPV 7.5 fL (7.6-11.3); RBC Red Blood Cell Count 3.05 M/uL (4.33-5.43)
[2021-05-06 05:53] LABS: Albumin 2.8 g/dL (3.4-5.0); BUN Blood Urea Nitrogen 23 mg/dL (7-18); Bicarbonate 28 mmol/L (21-32); Glucose Level 198 mg/dL (74-106); Potassium 4.1 mmol/L (3.5-5.1); Prealbumin 20.8 mg/dL (20-40); Sodium Level 136 mmol/L (136-145)
[2021-05-06] MEDS: INSULIN -REGULAR HUMAN 50 UNIT/0.5 ML ML SQ SCH ×4 (08:08→20:34)
[2021-05-06] MEDS: AMLODIPINE 5 MG TAB PO SCH (08:09)
[2021-05-06] MEDS: GABAPENTIN 300 MG CAP PO SCH ×2 (08:09→20:34)
[2021-05-06] MEDS: INSULIN GLARGINE 100 UNIT/ML SQ SCH ×2 (08:09→20:00)
[2021-05-06] MEDS: JUVEN PACKET PO SCH ×2 (08:10→20:37)
[2021-05-06] MEDS: APIXABAN 2.5 MG TABLET PO SCH ×2 (08:10→20:34)
[2021-05-06] MEDS: METFORMIN HCL 500 MG TAB PO SCH ×2 (08:10→17:27)
[2021-05-06] MEDS: FERROUS SULFATE 325 MG TAB PO SCH ×2 (08:10→20:34)
[2021-05-06] MEDS: CLOPIDOGREL 75 MG TABLET PO SCH (08:10)
--- NOTE | 2021-05-06 17:02 | R.PN ---
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 Pt denied any Shortness of Breath. CBC with diff shows low Hgb of 9.3, WBC 6.0, glucose 88 to 255, prealbumin 20.8. UA is negative. Ambulated a total of 900' with contact guard assistance. Up and down 15 steps with contact guard assi stance. VITAL SIGNS Temperature: 97.3 F SBP/DBP: 122/60 Pulse: 80 Resp: 16 MEDICATION ALLERGIES: CODINE ENVIRONMENTAL ALLERGIES: - Substance Allergies None Known - Other Allergies None Known CONSULT: Perform Consult Certified Prosthetic for prosthesis construction NURSING: - Shower allowing shower - Skin care per protocol PRECAUTIONS: - Weight Bearing Precaution NWB left LE ACTIVITIES OOB only with supervision THERAPIES: - Orthotics/Prosthetics Prosthetic Evaluation. Evaluate and Treat. - Dietary and Nutrition Adequate Nutrition. Nutritional Education. Nutritional Supplements. Evaluate and Treat. - Occupational Therapy Cognitive Retraining. Visual Perceptual Training. ADL Training. Evaluate and Treat. Safety Awareness. Household Tasks. Patient/Family Education. Adaptive Equipment. - Speech Therapy Memory Strategies. Evaluate and Treat. Receptive Language Skills. Speech Intelligibility Training. - Physical Therapy Mobility Training. Gait Training. Safety Awareness. Transfer Training. Balance Training. Evaluate and Treat. LE Strengthening. Patient/Family Education. PHYSICAL EXAM - Gen Alert and awake Lying in bed No apparent distress Oriented to: person, time, and place - Skin No skin breakdown. No abnormalities - Eyes No abnormalities - ENMT No abnormalities - Neck No abnormalities - CVS RRR - Chest Clear - Resp Clear to auscultation - Abd Soft - GI Non distended Deferred - No abnormalities - Ext Left BKA good hemostasis, immobilizer in place - MSK 4+/5 weakness in right lower extremity - Neuro 4/5 strength right lower extremity. - Psych No abnormalities ASSESSMENT: Pt. is a 61 yo Right-handed male.On 04/17/[address] [facility] with diagno sis Left Transtibial Amputation.His impairment category is Amputation of Limb 05 - Unilateral Lower Limb Below the Knee (BK) (05.4).Pre-morbidly, Pt. was independent/mod-I in Locomotion, Safety Awarene ss, Social Cognition, and Balance; and he had good Transfers Control, Sphincter Control, Self-Care, E ndurance, and Communication.Currently, he has deficits of Locomotion, Safety Awareness, Social Cognit ion, Balance, Transfers Control, Sphincter Control, Self-Care, Communication, and Endurance.Pt. is no w referred to [facility] for acute in-patient rehabilitation in order to maxim ize patient's functional independence in activities of daily living, strength, ROM, and mobility.- Re hab Goal Patient has realistic goal of being discharged at assistance level 7-Ind to reside at Home with Fami ly/Relatives. MDM/PLAN: - Physical Therapy Gait dysfunction - to improve, our physical therapists will perform initial evaluation of pt's statu s upon admission and devise an individualized program for Gait Training, and Wheel Chair mobility Inability to transfer - to improve, our physical therapists will perform initial evaluation of pt's status upon admission and devise an individualized program for Bed mobility Need for home safety evaluation - to improve, our physical therapists will perform initial evaluatio n of pt's status upon admission and devise an individualized program for Home Evaluation Need in caregiver upon discharge - to improve, our physical therapists will perform initial evaluati on of pt's status upon admission and devise an individualized program for Caregiver Training New precaution - to improve, our physical therapists will perform initial evaluation of pt's status upon admission and devise an individualized program for Patient precaution education Poor balance - to improve, our physical therapists will perform initial evaluation of pt's status up on admission and devise an individualized program for Balance Training Poor endurance - to improve, our physical therapists will perform initial evaluation of pt's status upon admission and devise an individualized program for Endurance Training Weakness - to improve, our physical therapists will perform initial evaluation of pt's status upon a dmission and devise an individualized program for Aquatic Therapy, Neuromuscular Reeducation, and Str engthening Achieving independence - to improve, our physical therapists will perform initial evaluation of pt's status upon admission and devise an individualized program for Community Reintegration Activities - Occupational Therapy ADL deficits - to improve, our occupation therapists will perform initial evaluation of pt's status upon admission and devise an individualized program for Bathing, Bed mobility, Community Reintegratio n, Cooking, Dressing, Eating, Fine Motor Skills, Grooming, Homemaking, Kitchen Mobility, Laundry, Pat ient Education, Safety Awareness, Splinting - Positioning, Transfers(Toilet, Tub, Shower), and Wheel Chair Management Cognitive deficits - to improve, our occupation therapists will perform initial evaluation of pt's s tatus upon admission and devise an individualized program for Cognition - orientation Need for summer child caregiver - to improve, our occupation therapists will perform initial evaluation of pt's status upon admission and devise an individualized program for Caregiver Training Weakness - to improve, our occupation therapists will perform initial evaluation of pt's status upon admission and devise an individualized program for Aquatic Therapy, Balance, Endurance, UE ROM, and UE strengthening - Other See attached MAR (Medication Administration Record) - Diet Type Continue Regular - Diet - Liquid Texture Continue Regular - Tube Feed Continue N/A - Weight Bearing Precaution NWB left LE - Skin care per protocol - N/A Perform Consult Certified Prosthetic for prosthesis construction - Diet - Solid Texture Continue Regular - Shower allowing shower FUNCTIONAL STATUS: UPDATED AT WEEKLY TEAM CONFERENCE - Bladder Same accident frequency: 7-Ind - No accidents in the past 7 days - Bowel Same accident frequency: 7-Ind - No accidents in the past 7 days - Walking Same score based on distance walked: 0(N/A) - Wheelchair Same score based on distance traveled: 0(N/A) FUNCTIONAL STATUS: - Self-Care A. Eating Ind B. Grooming Sb C. Bathing sup D. Dressing - Upper sup E. Dressing - Lower Fuentes F. Toileting Sb - Sphincter Control G. Bladder control Sb H. Bowel control Sb - Transfers Control I. Bed/Chair/Wheelchair Fuentes J. Toilet Fuentes K. Tub/Shower Fuentes - Locomotion L. Walk/Wheelchair (B) Fuentes M. Stairs modA - Communication N. Comprehension (B) Sb O. Expression (B) Sb - Social Cognition P. Social Interaction Ind Q. Problem Solving sup R. Memory Sb - Endurance Fair - Balance Fair - Safety Awareness Fair QI SCORES: - Self-Care A. Eating 06-Independent B. Oral hygiene 03-Partial/moderate assistance C. Toileting hygiene 03-Partial/moderate assistance E. Shower/bathe self 03-Partial/moderate assistance F. Upper body dressing 03-Partial/moderate assistance G. Lower body dressing 03-Partial/moderate assistance H. Putting on/taking off footwear 88-Not attempted due to medical condition or safety concerns - Mobility A. Roll left and right 04-Supervision or touching assistance B. Sit to lying 03-Partial/moderate assistance C. Lying to sitting on side of bed 03-Partial/moderate assistance D. Sit to stand 03-Partial/moderate assistance E. Chair/[id number] transfer 03-Partial/moderate assistance F. Toilet transfer 03-Partial/moderate assistance G. Car transfer 88-Not attempted due to medical condition or safety concerns I. Walk 10 feet 03-Partial/moderate assistance J. Walk 50 feet with two turns 03-Partial/moderate assistance K. Walk 150 feet 88-Not attempted due to medical condition or safety concerns L. Walking 10 feet on uneven surfaces 88-Not attempted due to medical condition or safety concerns M. 1 step (curb) 88-Not attempted due to medical condition or safety concerns N. 4 steps 88-Not attempted due to medical condition or safety concerns O. 12 steps 88-Not attempted due to medical condition or safety concerns P. Picking up object 88-Not attempted due to medical condition or safety concerns R. Wheel 50 feet with two turns 88-Not attempted due to medical condition or safety concerns S. Wheel 150 feet 88-Not attempted due to medical condition or safety concerns - Bladder and Bowel Bladder continence Bowel continence - Endurance Fair - Balance Fair - Safety Awareness Fair CURRENT [facility]. 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
[2021-05-06] MEDS ORDERED: DOCUSATE NA/SENNA CONC 1 TAB PO PRN (18:31)
[2021-05-06] MEDS: ATORVASTATIN 10 MG TAB PO SCH (20:34)
[2021-05-07] MEDS: INSULIN -REGULAR HUMAN 50 UNIT/0.5 ML ML SQ SCH ×4 (07:30→19:56)
[2021-05-07] MEDS: INSULIN GLARGINE 100 UNIT/ML SQ SCH ×2 (08:35→19:56)
[2021-05-07] MEDS: AMLODIPINE 5 MG TAB PO SCH (08:36)
[2021-05-07] MEDS: FERROUS SULFATE 325 MG TAB PO SCH ×2 (08:36→19:55)
[2021-05-07] MEDS: CLOPIDOGREL 75 MG TABLET PO SCH (08:36)
[2021-05-07] MEDS: GABAPENTIN 300 MG CAP PO SCH ×2 (08:36→19:56)
[2021-05-07] MEDS: JUVEN PACKET PO SCH ×2 (08:37→19:56)
[2021-05-07] MEDS: METFORMIN HCL 500 MG TAB PO SCH ×2 (08:37→17:14)
[2021-05-07] MEDS: APIXABAN 2.5 MG TABLET PO SCH ×2 (08:37→19:56)
--- NOTE | 2021-05-07 19:28 | R.PN ---
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 Pt denied any Shortness of Breath. CBC with diff shows low Hgb of 9.3, WBC 6.0, glucose 106 to 227, prealbumin 20.8. UA is negative. Ambulated a total of 202' with contact guard assistance. VITAL SIGNS Temperature: 98.0 F SBP/DBP: 141/69 Pulse: 81 Resp: 16 MEDICATION ALLERGIES: CODINE ENVIRONMENTAL ALLERGIES: - Substance Allergies None Known - Other Allergies None Known CONSULT: Perform Consult Certified Prosthetic for prosthesis construction NURSING: - Shower allowing shower - Skin care per protocol PRECAUTIONS: - Weight Bearing Precaution NWB left LE ACTIVITIES OOB only with supervision THERAPIES: - Orthotics/Prosthetics Prosthetic Evaluation. Evaluate and Treat. - Dietary and Nutrition Adequate Nutrition. Nutritional Education. Nutritional Supplements. Evaluate and Treat. - Occupational Therapy Cognitive Retraining. Visual Perceptual Training. ADL Training. Evaluate and Treat. Safety Awareness. Household Tasks. Patient/Family Education. Adaptive Equipment. - Speech Therapy Memory Strategies. Evaluate and Treat. Receptive Language Skills. Speech Intelligibility Training. - Physical Therapy Mobility Training. Gait Training. Safety Awareness. Transfer Training. Balance Training. Evaluate and Treat. LE Strengthening. Patient/Family Education. PHYSICAL EXAM - Gen Alert and awake Lying in bed No apparent distress Oriented to: person, time, and place - Skin No skin breakdown. No abnormalities - Eyes No abnormalities - ENMT No abnormalities - Neck No abnormalities - CVS RRR - Chest Clear - Resp Clear to auscultation - Abd Soft - GI Non distended Deferred - No abnormalities - Ext Left BKA good hemostasis, immobilizer in place - MSK 4+/5 weakness in right lower extremity - Neuro 4/5 strength right lower extremity. - Psych No abnormalities ASSESSMENT: Pt. is a 61 yo Right-handed male.On 04/17/[address] [facility] with diagno sis Left Transtibial Amputation.His impairment category is Amputation of Limb 05 - Unilateral Lower Limb Below the Knee (BK) (05.4).Pre-morbidly, Pt. was independent/mod-I in Locomotion, Safety Awarene ss, Social Cognition, and Balance; and he had good Transfers Control, Sphincter Control, Self-Care, E ndurance, and Communication.Currently, he has deficits of Locomotion, Safety Awareness, Social Cognit ion, Balance, Transfers Control, Sphincter Control, Self-Care, Communication, and Endurance.Pt. is no w referred to [facility] for acute in-patient rehabilitation in order to maxim ize patient's functional independence in activities of daily living, strength, ROM, and mobility.- Re hab Goal Patient has realistic goal of being discharged at assistance level 7-Ind to reside at Home with Fami ly/Relatives. MDM/PLAN: - Physical Therapy Gait dysfunction - to improve, our physical therapists will perform initial evaluation of pt's statu s upon admission and devise an individualized program for Gait Training, and Wheel Chair mobility Inability to transfer - to improve, our physical therapists will perform initial evaluation of pt's status upon admission and devise an individualized program for Bed mobility Need for home safety evaluation - to improve, our physical therapists will perform initial evaluatio n of pt's status upon admission and devise an individualized program for Home Evaluation Need in caregiver upon discharge - to improve, our physical therapists will perform initial evaluati on of pt's status upon admission and devise an individualized program for Caregiver Training New precaution - to improve, our physical therapists will perform initial evaluation of pt's status upon admission and devise an individualized program for Patient precaution education Poor balance - to improve, our physical therapists will perform initial evaluation of pt's status up on admission and devise an individualized program for Balance Training Poor endurance - to improve, our physical therapists will perform initial evaluation of pt's status upon admission and devise an individualized program for Endurance Training Weakness - to improve, our physical therapists will perform initial evaluation of pt's status upon a dmission and devise an individualized program for Aquatic Therapy, Neuromuscular Reeducation, and Str engthening Achieving independence - to improve, our physical therapists will perform initial evaluation of pt's status upon admission and devise an individualized program for Community Reintegration Activities - Occupational Therapy ADL deficits - to improve, our occupation therapists will perform initial evaluation of pt's status upon admission and devise an individualized program for Bathing, Bed mobility, Community Reintegratio n, Cooking, Dressing, Eating, Fine Motor Skills, Grooming, Homemaking, Kitchen Mobility, Laundry, Pat ient Education, Safety Awareness, Splinting - Positioning, Transfers(Toilet, Tub, Shower), and Wheel Chair Management Cognitive deficits - to improve, our occupation therapists will perform initial evaluation of pt's s tatus upon admission and devise an individualized program for Cognition - orientation Need for family member caretaker - to improve, our occupation therapists will perform initial evaluation of pt's status upon admission and devise an individualized program for Caregiver Training Weakness - to improve, our occupation therapists will perform initial evaluation of pt's status upon admission and devise an individualized program for Aquatic Therapy, Balance, Endurance, UE ROM, and UE strengthening - Other See attached MAR (Medication Administration Record) - Diet Type Continue Regular - Diet - Liquid Texture Continue Regular - Tube Feed Continue N/A - Weight Bearing Precaution NWB left LE - Skin care per protocol - N/A Perform Consult Certified Prosthetic for prosthesis construction - Diet - Solid Texture Continue Regular - Shower allowing shower FUNCTIONAL STATUS: UPDATED AT WEEKLY TEAM CONFERENCE - Bladder Same accident frequency: 7-Ind - No accidents in the past 7 days - Bowel Same accident frequency: 7-Ind - No accidents in the past 7 days - Walking Same score based on distance walked: 0(N/A) - Wheelchair Same score based on distance traveled: 0(N/A) FUNCTIONAL STATUS: - Self-Care A. Eating Ind B. Grooming Sb C. Bathing sup D. Dressing - Upper sup E. Dressing - Lower Fuentes F. Toileting Sb - Sphincter Control G. Bladder control Sb H. Bowel control Sb - Transfers Control I. Bed/Chair/Wheelchair Fuentes J. Toilet Fuentes K. Tub/Shower Fuentes - Locomotion L. Walk/Wheelchair (B) Fuentes M. Stairs modA - Communication N. Comprehension (B) Sb O. Expression (B) Sb - Social Cognition P. Social Interaction Ind Q. Problem Solving sup R. Memory Sb - Endurance Fair - Balance Fair - Safety Awareness Fair QI SCORES: - Self-Care A. Eating 06-Independent B. Oral hygiene 03-Partial/moderate assistance C. Toileting hygiene 03-Partial/moderate assistance E. Shower/bathe self 03-Partial/moderate assistance F. Upper body dressing 03-Partial/moderate assistance G. Lower body dressing 03-Partial/moderate assistance H. Putting on/taking off footwear 88-Not attempted due to medical condition or safety concerns - Mobility A. Roll left and right 04-Supervision or touching assistance B. Sit to lying 03-Partial/moderate assistance C. Lying to sitting on side of bed 03-Partial/moderate assistance D. Sit to stand 03-Partial/moderate assistance E. Chair/[id number] transfer 03-Partial/moderate assistance F. Toilet transfer 03-Partial/moderate assistance G. Car transfer 88-Not attempted due to medical condition or safety concerns I. Walk 10 feet 03-Partial/moderate assistance J. Walk 50 feet with two turns 03-Partial/moderate assistance K. Walk 150 feet 88-Not attempted due to medical condition or safety concerns L. Walking 10 feet on uneven surfaces 88-Not attempted due to medical condition or safety concerns M. 1 step (curb) 88-Not attempted due to medical condition or safety concerns N. 4 steps 88-Not attempted due to medical condition or safety concerns O. 12 steps 88-Not attempted due to medical condition or safety concerns P. Picking up object 88-Not attempted due to medical condition or safety concerns R. Wheel 50 feet with two turns 88-Not attempted due to medical condition or safety concerns S. Wheel 150 feet 88-Not attempted due to medical condition or safety concerns - Bladder and Bowel Bladder continence Bowel continence - Endurance Fair - Balance Fair - Safety Awareness Fair CURRENT [facility]. 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
[2021-05-07] MEDS: ATORVASTATIN 10 MG TAB PO SCH (19:56)
[2021-05-08] MEDS: INSULIN -REGULAR HUMAN 50 UNIT/0.5 ML ML SQ SCH ×4 (07:25→19:32)
[2021-05-08] MEDS: GABAPENTIN 300 MG CAP PO SCH ×2 (07:57→19:32)
[2021-05-08] MEDS: CLOPIDOGREL 75 MG TABLET PO SCH (07:57)
[2021-05-08] MEDS: METFORMIN HCL 500 MG TAB PO SCH ×2 (07:57→17:06)
[2021-05-08] MEDS: APIXABAN 2.5 MG TABLET PO SCH ×2 (07:57→19:32)
[2021-05-08] MEDS: FERROUS SULFATE 325 MG TAB PO SCH ×2 (07:57→19:32)
[2021-05-08] MEDS: AMLODIPINE 5 MG TAB PO SCH (07:57)
[2021-05-08] MEDS: INSULIN GLARGINE 100 UNIT/ML SQ SCH ×2 (08:00→19:32)
[2021-05-08] MEDS: JUVEN PACKET PO SCH ×2 (08:30→19:32)
--- NOTE | 2021-05-08 15:23 | R.PN ---
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 Pt denied any Shortness of Breath. CBC with diff shows low Hgb of 9.3, WBC 6.0, glucose 128 to 179, prealbumin 20.8. UA is negative. Ambulated a total of 306' with contact guard assistance using a rolling walker. VITAL SIGNS Temperature: 98.6 F SBP/DBP: 125/64 Pulse: 81 Resp: 15 MEDICATION ALLERGIES: CODINE ENVIRONMENTAL ALLERGIES: - Substance Allergies None Known - Other Allergies None Known CONSULT: Perform Consult Certified Prosthetic for prosthesis construction NURSING: - Shower allowing shower - Skin care per protocol PRECAUTIONS: - Weight Bearing Precaution NWB left LE ACTIVITIES OOB only with supervision THERAPIES: - Orthotics/Prosthetics Prosthetic Evaluation. Evaluate and Treat. - Dietary and Nutrition Adequate Nutrition. Nutritional Education. Nutritional Supplements. Evaluate and Treat. - Occupational Therapy Cognitive Retraining. Visual Perceptual Training. ADL Training. Evaluate and Treat. Safety Awareness. Household Tasks. Patient/Family Education. Adaptive Equipment. - Speech Therapy Memory Strategies. Evaluate and Treat. Receptive Language Skills. Speech Intelligibility Training. - Physical Therapy Mobility Training. Gait Training. Safety Awareness. Transfer Training. Balance Training. Evaluate and Treat. LE Strengthening. Patient/Family Education. PHYSICAL EXAM - Gen Alert and awake Lying in bed No apparent distress Oriented to: person, time, and place - Skin No skin breakdown. No abnormalities - Eyes No abnormalities - ENMT No abnormalities - Neck No abnormalities - CVS RRR - Chest Clear - Resp Clear to auscultation - Abd Soft - GI Non distended Deferred - No abnormalities - Ext Left BKA good hemostasis, immobilizer in place - MSK 4+/5 weakness in right lower extremity - Neuro 4/5 strength right lower extremity. - Psych No abnormalities ASSESSMENT: Pt. is a 61 yo Right-handed male.On 04/17/2021 he was admitted to [facility] with diagno sis Left Transtibial Amputation.His impairment category is Amputation of Limb 05 - Unilateral Lower Limb Below the Knee (BK) (05.4).Pre-morbidly, Pt. was independent/mod-I in Locomotion, Safety Awarene ss, Social Cognition, and Balance; and he had good Transfers Control, Sphincter Control, Self-Care, E ndurance, and Communication.Currently, he has deficits of Locomotion, Safety Awareness, Social Cognit ion, Balance, Transfers Control, Sphincter Control, Self-Care, Communication, and Endurance.Pt. is no w referred to [facility] for acute in-patient rehabilitation in order to maxim ize patient's functional independence in activities of daily living, strength, ROM, and mobility.- Re hab Goal Patient has realistic goal of being discharged at assistance level 7-Ind to reside at Home with Fami ly/Relatives. MDM/PLAN: - Physical Therapy Gait dysfunction - to improve, our physical therapists will perform initial evaluation of pt's statu s upon admission and devise an individualized program for Gait Training, and Wheel Chair mobility Inability to transfer - to improve, our physical therapists will perform initial evaluation of pt's status upon admission and devise an individualized program for Bed mobility Need for home safety evaluation - to improve, our physical therapists will perform initial evaluatio n of pt's status upon admission and devise an individualized program for Home Evaluation Need in caregiver upon discharge - to improve, our physical therapists will perform initial evaluati on of pt's status upon admission and devise an individualized program for Caregiver Training New precaution - to improve, our physical therapists will perform initial evaluation of pt's status upon admission and devise an individualized program for Patient precaution education Poor balance - to improve, our physical therapists will perform initial evaluation of pt's status up on admission and devise an individualized program for Balance Training Poor endurance - to improve, our physical therapists will perform initial evaluation of pt's status upon admission and devise an individualized program for Endurance Training Weakness - to improve, our physical therapists will perform initial evaluation of pt's status upon a dmission and devise an individualized program for Aquatic Therapy, Neuromuscular Reeducation, and Str engthening Achieving independence - to improve, our physical therapists will perform initial evaluation of pt's status upon admission and devise an individualized program for Community Reintegration Activities - Occupational Therapy ADL deficits - to improve, our occupation therapists will perform initial evaluation of pt's status upon admission and devise an individualized program for Bathing, Bed mobility, Community Reintegratio n, Cooking, Dressing, Eating, Fine Motor Skills, Grooming, Homemaking, Kitchen Mobility, Laundry, Pat ient Education, Safety Awareness, Splinting - Positioning, Transfers(Toilet, Tub, Shower), and Wheel Chair Management Cognitive deficits - to improve, our occupation therapists will perform initial evaluation of pt's s tatus upon admission and devise an individualized program for Cognition - orientation Need for care aid - to improve, our occupation therapists will perform initial evaluation of pt's status upon admission and devise an individualized program for Caregiver Training Weakness - to improve, our occupation therapists will perform initial evaluation of pt's status upon admission and devise an individualized program for Aquatic Therapy, Balance, Endurance, UE ROM, and UE strengthening - Other See attached MAR (Medication Administration Record) - Diet Type Continue Regular - Diet - Liquid Texture Continue Regular - Tube Feed Continue N/A - Weight Bearing Precaution NWB left LE - Skin care per protocol - N/A Perform Consult Certified Prosthetic for prosthesis construction - Diet - Solid Texture Continue Regular - Shower allowing shower FUNCTIONAL STATUS: UPDATED AT WEEKLY TEAM CONFERENCE - Bladder Same accident frequency: 7-Ind - No accidents in the past 7 days - Bowel Same accident frequency: 7-Ind - No accidents in the past 7 days - Walking Same score based on distance walked: 0(N/A) - Wheelchair Same score based on distance traveled: 0(N/A) FUNCTIONAL STATUS: - Self-Care A. Eating Ind B. Grooming Sb C. Bathing sup D. Dressing - Upper sup E. Dressing - Lower Fuentes F. Toileting Sb - Sphincter Control G. Bladder control Sb H. Bowel control Sb - Transfers Control I. Bed/Chair/Wheelchair Fuentes J. Toilet Fuentes K. Tub/Shower Fuentes - Locomotion L. Walk/Wheelchair (B) Fuentes M. Stairs modA - Communication N. Comprehension (B) Sb O. Expression (B) Sb - Social Cognition P. Social Interaction Ind Q. Problem Solving sup R. Memory Sb - Endurance Fair - Balance Fair - Safety Awareness Fair QI SCORES: - Self-Care A. Eating 06-Independent B. Oral hygiene 03-Partial/moderate assistance C. Toileting hygiene 03-Partial/moderate assistance E. Shower/bathe self 03-Partial/moderate assistance F. Upper body dressing 03-Partial/moderate assistance G. Lower body dressing 03-Partial/moderate assistance H. Putting on/taking off footwear 88-Not attempted due to medical condition or safety concerns - Mobility A. Roll left and right 04-Supervision or touching assistance B. Sit to lying 03-Partial/moderate assistance C. Lying to sitting on side of bed 03-Partial/moderate assistance D. Sit to stand 03-Partial/moderate assistance E. Chair/vhm-mr-[id number] transfer 03-Partial/moderate assistance F. Toilet transfer 03-Partial/moderate assistance G. Car transfer 88-Not attempted due to medical condition or safety concerns I. Walk 10 feet 03-Partial/moderate assistance J. Walk 50 feet with two turns 03-Partial/moderate assistance K. Walk 150 feet 88-Not attempted due to medical condition or safety concerns L. Walking 10 feet on uneven surfaces 88-Not attempted due to medical condition or safety concerns M. 1 step (curb) 88-Not attempted due to medical condition or safety concerns N. 4 steps 88-Not attempted due to medical condition or safety concerns O. 12 steps 88-Not attempted due to medical condition or safety concerns P. Picking up object 88-Not attempted due to medical condition or safety concerns R. Wheel 50 feet with two turns 88-Not attempted due to medical condition or safety concerns S. Wheel 150 feet 88-Not attempted due to medical condition or safety concerns - Bladder and Bowel Bladder continence Bowel continence - Endurance Fair - Balance Fair - Safety Awareness Fair [facility] 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
[2021-05-08] MEDS: ATORVASTATIN 10 MG TAB PO SCH (19:32)
[2021-05-09 05:00] LABS: Absolute Lymphocytes (CBC) 1.7 K/uL (0.7-4.9); Hematocrit 27.1 % (39.6-49.0); Lymphocytes % 29.6 % (15.3-44.8); MPV 7.6 fL (7.6-11.3); RBC Red Blood Cell Count 3.06 M/uL (4.33-5.43)
[2021-05-09 05:14] LABS: Albumin 2.9 g/dL (3.4-5.0); BUN Blood Urea Nitrogen 26 mg/dL (7-18); Bicarbonate 27 mmol/L (21-32); Glucose Level 169 mg/dL (74-106); Magnesium 1.8 mg/dL (1.8-2.4); Potassium 3.9 mmol/L (3.5-5.1); Prealbumin 16.2 mg/dL (20-40); Sodium Level 140 mmol/L (136-145)
[2021-05-09] MEDS: INSULIN -REGULAR HUMAN 50 UNIT/0.5 ML ML SQ SCH ×2 (07:28→12:14)
[2021-05-09 07:54] VITALS: BP 131/63; TEMP 97.6
[2021-05-09] MEDS: FERROUS SULFATE 325 MG TAB PO SCH (08:06)
[2021-05-09] MEDS: METFORMIN HCL 500 MG TAB PO SCH (08:07)
[2021-05-09] MEDS: AMLODIPINE 5 MG TAB PO SCH (08:07)
[2021-05-09] MEDS: APIXABAN 2.5 MG TABLET PO SCH (08:07)
[2021-05-09] MEDS: CLOPIDOGREL 75 MG TABLET PO SCH (08:07)
[2021-05-09] MEDS: GABAPENTIN 300 MG CAP PO SCH (08:07)
[2021-05-09] MEDS: JUVEN PACKET PO SCH (08:27)
[2021-05-09] MEDS: INSULIN GLARGINE 100 UNIT/ML SQ SCH (09:04)
== END 2021-05-09 16:30 | disposition home health service (06) | DRG 559 ==
LOC: 4TH 04-26 08:34 → 5TH 05-05 11:04
PROVIDERS: ADMIT Psychiatry & Neurology Neurology with Special Qualifications in Child Neurology; ATTEND Psychiatry & Neurology Neurology with Special Qualifications in Child Neurology
DX: Z47.81 Encounter for orthopedic aftercare following surgical amputation (principal); U07.1 COVID-19; Z89.512 Acquired absence of left leg below knee; E11.9 Type 2 diabetes mellitus without complications; I10 Essential (primary) hypertension; E78.5 Hyperlipidemia, unspecified; I73.9 Peripheral vascular disease, unspecified; E66.9 Obesity, unspecified; Z68.33 Body mass index [BMI] 33.0-33.9, adult
CPT/HCPCS: 36415; 80048; 81001; 82040; 82947; 83735; 84134; 85025; 87086; 87088; 97110; 97116; 97162; 97165; 97530; 97542